=== PATIENT | male | born 1940 | race Two or more races ===

== ENCOUNTER → 2017-08-10 | Outpatient (CLI) | payer MEDICARE | END | disposition home or self-care (01) | LOC: LABPAT 10:57 | PROVIDERS: ATTEND Orthopaedic Surgery | DX: Z01.812 Encounter for preprocedural laboratory examination (principal) | CPT/HCPCS: 87070 ==

== ENCOUNTER → 2017-08-12 | Outpatient (CLI) | payer MEDICARE ==
--- NOTE | 2017-08-12 16:52 | XR ---
EXAMINATION TYPE: XR chest 2V DATE OF EXAM: 08/12/2017 COMPARISON: NONE HISTORY: Abnormal stress test. Preop hip surgery. TECHNIQUE: Frontal and lateral views of the chest are obtained. FINDINGS: Heart and mediastinum are normal. Lungs are clear of consolidation. There are small linear density at the left lung base. There is no heart failure. There is no pleural effusion. Bony thorax is intact. IMPRESSION: Minimal scarring or subsegmental atelectasis at the left lung base. Normal heart.
[2017-08-12 16:54] LABS: HCT 37.4 % (39.0-53.0); HGB 12.5 gm/dL (13.0-17.5); MCHC 33.5 g/dL (31.0-37.0); MCV 92.5 fL (80.0-100.0); Mean Platelet Volume 6.7; Platelet Count 230 k/uL (150-450); RBC 4.04 m/uL (4.30-5.90); RDW 13.4 % (11.5-15.5); WBC 7.5 k/uL (3.8-10.6)
== END | disposition home or self-care (01) ==
LOC: LABPAT 16:02
PROVIDERS: ATTEND Internal Medicine Cardiovascular Disease
DX: Z01.810 Encounter for preprocedural cardiovascular examination (principal); Z01.812 Encounter for preprocedural laboratory examination; R93.1 Abnormal findings on diagnostic imaging of heart and coronary circulation
CPT/HCPCS: 36415; 71046; 80051; 82565; 84520; 85027

== ENCOUNTER 2017-08-18 06:24 | Day surgery (SDC) | payer MEDICARE ==
[2017-08-16 10:51] VITALS: BMI 28.7
[~2017-08-18 06:24] MED LIST: ALPRAZolam 0.25 MG TAB PO PRN; ALPRAZolam 0.5 MG TAB PO PRN; ASPIRIN 325 MG TAB PO STA; ATORVASTATIN 80 MG TAB PO STA; NITROGLYCERIN SL TABS 0.4 MG TAB SUBLINGUAL PRN; SODIUM CHLORIDE 0.9% 1,000 ML in EMPTY BAG 1 BAG IV ONE
[2017-08-18] MEDS ORDERED: LIDOCAINE 1% INJ 10MG/ML (20 ML MDV) ONE (07:22)
[2017-08-18] MEDS ORDERED: LOSARTAN 25 MG TAB PO STA (07:22)
[2017-08-18 07:23] LABS: Glucose,Whole Blood 142 mg/dL (75-99)
[2017-08-18] MEDS ORDERED: MIDAZOLAM 2 MG/2 ML VIAL ONE (07:36)
[2017-08-18] MEDS ORDERED: fentaNYL (PF) 50 MCG/ML 2 ML AMP ONE ×2 (07:36→12:03)
[2017-08-18] MEDS: MIDAZOLAM 2 MG/2 ML VIAL IV ONE ×2 (07:45→08:25)
[2017-08-18] MEDS ORDERED: LIDOCAINE 1% INJ 10MG/ML (20 ML MDV) SQ ONE (07:47)
[2017-08-18] MEDS: fentaNYL (PF) 50 MCG/ML 2 ML AMP IV ONE ×2 (08:01→08:39)
--- NOTE | 2017-08-18 08:26 | CC ---
CARDIAC CATHETERIZATION REPORT INDICATION: This is a 77-year-old gentleman with multiple coronary risk factors who was to undergo right hip replacement surgery and was referred to us for an abnormal stress test. A stress test was done for preop cardiac evaluation. The patient does not have any cardiac symptoms. He understood risks, benefits and alternatives. PROCEDURE NOTE: After obtaining informed consent, left heart catheterization and coronary angiogram are performed via the right femoral artery using standard Hayley catheters. The patient tolerated the procedure well without any obvious immediate complications. Patient received moderate conscious sedation and total sedation time was 16 minutes. FINDINGS: 1. HEMODYNAMICS: Left ventricular end-diastolic pressure is 8 to 12 mm. There is no significant gradient across aortic valve. 2. LEFT VENTRICULOGRAM: Left ventriculogram is not performed. 3. ANGIOGRAPHIC DATA: 4. Left main coronary artery: Left main coronary artery appears calcified but is free of significant stenosis. Divides into left anterior descending coronary artery and circumflex coronary artery. LAD shows both the left main and LAD appears calcified but the LAD itself is free of significant stenosis. There is diffuse disease noted. It gives off a diagonal branch. The diagonal branch has a 70% stenosis. Circumflex coronary artery gives off a large caliber OM branch that shows an 80% to 90% stenosis. Right coronary artery is a large dominant vessel that appears calcified. It is diffusely diseased but there are no focal hemodynamically significant lesions. CONCLUSIONS: 1. An 80% to 90% stenosis involving the OM branch. 2. A 70% stenosis involving diagonal branch. PLAN: I talked to patient at length about the catheterization findings and his treatment options. I told him that one of his options is to go through hip surgery and treat the CAD with medical therapy. The other option is to do stenting of the OM branch and then let him go through surgery maybe [address]. Understanding all the issues, patient wishes to have the stenting done at this time and he is okay with postponing the surgery as he thinks the hip is not troubling him that much. MMODL / IJN: [id number] /
--- NOTE | 2017-08-18 08:32 | LTR ---
August 18, [address] Mclaughlin: I performed cardiac catheterization on [facility], a detailed catheterization note is enclosed for your records. The cardiac catheterization revealed an 80% to 90% stenosis involving the OM branch and he will undergo angioplasty with stent placement of the same. Thank you for allowing us to participate in the care of this pleasant gentleman. Sincerely, MD UZMA Ramirez / LOLA: [id number] /
[2017-08-18] MEDS ORDERED: IOPAMIDOL-370 125ML BTL INJ ONE ×2 (08:43→12:54)
[2017-08-18 11:17] LABS: Glucose,Whole Blood 134 mg/dL (75-99)
[2017-08-18] MEDS: amLODIPine 10 MG TAB PO SCH (11:30)
[2017-08-18] MEDS ORDERED: hydrALAZINE HCL 20 MG/ML 1 ML VIAL IVP STA (11:38)
[2017-08-18] MEDS ORDERED: BIVALIRUDIN 250 MG in SODIUM CHLORIDE 0.9% 50 ML IV ONE ×4 (12:16)
[2017-08-18] MEDS ORDERED: fentaNYL (PF) 50 MCG/ML 2 ML AMP IVP ONE (12:16)
[2017-08-18] MEDS ORDERED: BIVALIRUDIN BOLUS 250 MG/50 ML IV ONE ×2 (12:17→12:22)
[2017-08-18] MEDS ORDERED: PRASUGREL 10 MG TAB ONE (12:23)
[2017-08-18] MEDS ORDERED: PRASUGREL 10 MG TAB PO ONE (12:27)
[2017-08-18] MEDS ORDERED: NITROGLYCERIN 1000MCG/10ML SYRINGE INTRACORON ONE (12:41)
[2017-08-18] MEDS ORDERED: IOPAMIDOL-370 50ML BTL INJ ONE (13:04)
[2017-08-18] MEDS ORDERED: NITROGLYCERIN SL TABS 0.4 MG TAB SUBLINGUAL PRN (13:20)
[2017-08-18] MEDS ORDERED: MAG HYDROX/AL HYDROX/SIMETH 30 ML CUP PO PRN (13:20)
[2017-08-18] MEDS ORDERED: ATROPINE SULFATE 0.1 MG/ML 10ML SYRINGE IV PRN (13:20)
[2017-08-18] MEDS ORDERED: RX INFO: IV CONTRAST WAS GIVEN 1 EACH MISC MISCELLANE PRN (13:20)
[2017-08-18] MEDS ORDERED: ZOLPIDEM 5 MG TAB PO PRN (13:20)
[2017-08-18] MEDS ORDERED: SODIUM CHLORIDE 0.9% 1,000 ML IV SCH (13:30)
[2017-08-18 14:01] VITALS: RESP 16
--- NOTE | 2017-08-18 15:05 | PTCA ---
PERCUTANEOUSTRANS CORORONARY ANGIOGRAPHY Mr. Holman is a 77-year-old male with known history of hypertension, hyperlipidemia, diabetes mellitus, who has underwent a myocardial perfusion imaging in the setting of a preoperative evaluation and was found to have reversible inferolateral wall defect. He underwent cardiac catheterization by Dr. Barajas and was found to have calcified coronary artery with significant stenosis involving the first obtuse marginal branch that is moderate to large in caliber. Discussion was made with the patient by Dr. Barajas regarding both options of proceeding with surgical intervention or percutaneous revascularization and postponing his surgical intervention. He was in favor of proceeding with percutaneous revascularization. The procedures, risks and complications were discussed with the patient who is in full understanding and agreement. PROCEDURE: Patient was brought to the labor service representative in a fasting semisedated state after receiving fentanyl and Benadryl and achieving moderate conscious sedated state. Using wire exchange technique, a 6-Finnish sheath in the right femoral artery was exchanged to a new 6-Finnish sheath. Following that, a 6-Finnish FR4 guiding catheter in the system. After cannulating the left main, a 0.014 advanced medium weight J-wire was advanced across the system and positioned in the first obtuse marginal branch. Subsequently, a 0.14 whisper J-wire was advanced and positioned in the distal second obtuse marginal branch. Subsequently a 2.5 x 12 mm Trek balloon was advanced and two inflations at a maximum of 8 atmospheres was done. Following that, the balloon was removed and attempt to advance a 2.5 x 18 mm Xience Alpine stent were unsuccessful. At that point, the stent was removed and the BMW J wire was removed and a GuideLiner was advanced and with the help of the GuideLiner, the stent was advanced, deployed and dilated at 14 atmospheres. Following that, the balloon was removed and another 2.25 x 12 mm Xience Alpine stent was deployed with the preschool assistant of the GuideLiner and positioned distal to the 1st stent and dilated to 16 atmospheres. Subsequently, inflation of the guidewire, the balloon and the guidewire were removed were withdrawn back in the guiding catheter. Images were obtained and repeated. Those images reveal stable successful stenting. At that point, the guiding catheter, the balloon and the guidewire were removed. The sheath was removed. Hemostasis was obtained with deployment of an Angio-Seal. There was no immediate complication. The patient was returned to his room in stable condition. Of note, the patient received Angiomax per protocol as was oral loading dose off Effient. He had chest discomfort with the inflation that resolved at the end of procedure. RESULTS: Successful stenting of the second obtuse marginal branch with reduction of stenosis from 80% to 0% in a calcified tortuous segment. RECOMMENDATION: Patient will be continued on aspirin, Effient, beta blockers and statin. The importance of dual antiplatelet treatment were discussed with the patient and his family who are in full understanding and agreement. DURATION OF PROCEDURE: 52 minutes. UZMA / DEBBIEN: [id number] /
--- NOTE | 2017-08-18 15:14 | LTR ---
DATE OF SERVICE: 08/18/[address] Mclaughlin: I had the pleasure of performing coronary angioplasty and stenting on Mr. Holman at [facility] on August 18 and a full copy of procedure note will be forwarded to you. In brief, he underwent successful stenting of his second obtuse marginal branch. I am hopeful that this procedure will stabilize his status. Thank you again for allowing me to participate in his care. Please feel free to call for any questions. Sincerely yours, MMFAVIAN / DEBBIEN: [id number] /
[2017-08-18 16:38] LABS: Glucose,Whole Blood 268 mg/dL (75-99)
[2017-08-18] MEDS: INSULIN ASPART 100 UNIT/ML 1 ML 10 ML VIAL SQ SCH ×2 (17:22→21:14)
[2017-08-18] MEDS: METOPROLOL TARTRATE 25 MG TAB PO SCH (20:32)
[2017-08-18] MEDS: CALCIUM CARBONATE 500 MG CHEWABLE PO SCH (20:32)
[2017-08-18] MEDS ORDERED: ATORVASTATIN 80 MG TAB PO SCH (21:00)
[2017-08-18 21:05] LABS: Glucose,Whole Blood 189 mg/dL (75-99)
[2017-08-19 06:07] LABS: Glucose,Whole Blood 156 mg/dL (75-99)
[2017-08-19] MEDS: INSULIN ASPART 100 UNIT/ML 1 ML 10 ML VIAL SQ SCH (06:27)
[2017-08-19] MEDS ORDERED: LEVOTHYROXINE 75 MCG TAB PO SCH (06:30)
[2017-08-19 06:31] LABS: Calcium 8.4 mg/dL (8.4-10.2)
--- NOTE | 2017-08-19 07:36 | PN ---
PROGRESS NOTE Mr. Holman is a 77-year-old male who has been followed by Dr. Barajas. He was scheduled to undergo a total hip arthroplasty, underwent a myocardial perfusion imaging that revealed evidence of inferolateral ischemia. His cardiac catheterization showed severe stenosis involving the second obtuse marginal branch and heavily calcified vessels. The patient underwent stenting of the vessel after discussion with him regarding the timing of surgical intervention. He received 2 stents in the second obtuse marginal branch. He is doing well this morning ambulating without difficulty. Denying any chest pain. No dizziness. No palpitation. No nausea. He continued to be on aspirin once a day, Effient 10 mg daily, Lipitor 80 mg daily, losartan 25 mg daily, metoprolol tartrate 25 mg twice a day, tamsulosin, zolpidem and insulin. PHYSICAL EXAMINATION: Blood pressure 123/60 with the heart rate in 70s. LUNGS: Clear. HEART: Regular rate and rhythm. S1, S2. No S3. No rub. ABDOMEN: Soft, nontender. Right groin: No hematoma. EKG revealed no acute changes. LAB DATA: Lab data revealed BUN and creatinine 20 and 0.96. IMPRESSION: 1. Status post stenting of the left circumflex. 2. Hypertension. 3. Hyperlipidemia. 4. Diabetes mellitus. RECOMMENDATION: Patient will be discharged home today and followed as an outpatient. MMODL / IJN: [id number] /
[2017-08-19 08:06] VITALS: BP 113/68; PULSE 75; TEMP 97.5
[2017-08-19] MEDS: amLODIPine 10 MG TAB PO SCH (08:09)
[2017-08-19] MEDS: CALCIUM CARBONATE 500 MG CHEWABLE PO SCH (08:10)
[2017-08-19] MEDS: METOPROLOL TARTRATE 25 MG TAB PO SCH (08:11)
[2017-08-19] MEDS ORDERED: TAMSULOSIN 0.4 MG CAP.ER.24H PO SCH (09:00)
[2017-08-19] MEDS ORDERED: ASPIRIN 81 MG PO SCH (09:00)
[2017-08-19] MEDS ORDERED: LOSARTAN 25 MG TAB PO SCH (09:00)
[2017-08-19] MEDS ORDERED: PRASUGREL 10 MG TAB PO SCH (12:00)
== END 2017-08-19 11:15 | disposition home or self-care (01) ==
LOC: CATHCVL 06:24 → 6ICU 08:48 → 6SEL 13:07 → CATHCVL 08-19 11:15
PROVIDERS: ATTEND Internal Medicine Cardiovascular Disease
DX: I25.10 Atherosclerotic heart disease of native coronary artery without angina pectoris (principal); I25.84 Coronary atherosclerosis due to calcified coronary lesion; I77.1 Stricture of artery; I10 Essential (primary) hypertension; E78.2 Mixed hyperlipidemia; E11.9 Type 2 diabetes mellitus without complications; Z79.84 Long term (current) use of oral hypoglycemic drugs; Z79.82 Long term (current) use of aspirin; Z79.890 Hormone replacement therapy; Z79.899 Other long term (current) drug therapy
CPT/HCPCS: 94760; 93458; 85347; 80048; C9600; C1769 ×4; C1760; C1887 ×2; C1725; C1894; C1874; J2250; J0360; J2001; J3010; J0583; Q9967 ×2

== ENCOUNTER → 2018-12-12 | Outpatient (CLI) | payer MEDICARE ==
[2018-12-12 14:19] LABS: Appearance,Urine Clear (Clear); Bilirubin,Urine Negative (Negative); Blood,Urine Negative (Negative); Color,Urine Yellow; Glucose,Urine (UA) Negative (Negative); Ketones,Urine Negative (Negative); Leukocyte Esterase,Urine Negative (Negative); Nitrite,Urine Negative (Negative); Protein,Urine Trace (Negative); Specific Gravity,Urine 1.023 (1.001-1.035)
[2018-12-12 14:20] LABS: HGB 12.1 gm/dL (13.0-17.5); MCH 30.8 pg (25.0-35.0); MCHC 32.8 g/dL (31.0-37.0); Mean Platelet Volume 6.2; Platelet Count 248 k/uL (150-450); RBC 3.93 m/uL (4.30-5.90); RDW 12.8 % (11.5-15.5)
[2018-12-12 14:24] LABS: Calcium 9.2 mg/dL (8.4-10.2); Prothrombin Time 10.8 sec (9.0-12.0); Total Bilirubin 0.6 mg/dL (0.2-1.3); Total Protein 7.1 g/dL (6.3-8.2)
== END | disposition home or self-care (01) ==
LOC: LABPAT 12:37
PROVIDERS: ATTEND Orthopaedic Surgery
DX: Z01.810 Encounter for preprocedural cardiovascular examination (principal); Z01.812 Encounter for preprocedural laboratory examination
CPT/HCPCS: 36415; 80053; 81003; 85027; 85610; 85730; 87070; 93005

== ENCOUNTER 2018-12-19 07:46 | Inpatient (IN) | payer MEDICARE ==
[2018-12-09 12:32] VITALS: BMI 28.7
[~2018-12-19 07:46] MED LIST changes: +ACETAMINOPHEN TAB 500 MG TAB PO ONE; -ALPRAZolam 0.25 MG TAB PO PRN; -ALPRAZolam 0.5 MG TAB PO PRN; -ASPIRIN 325 MG TAB PO STA; -ATORVASTATIN 80 MG TAB PO STA; +DEXAMETHASONE SOD PHOSPHATE 10 MG/ML 1 ML VIAL IV ONE; +GABAPENTIN 300 MG CAP PO ONE; +LIDOCAINE 1% 20 ML VIAL (10MG/ML) FOR IV START INTRADERMA PRN; +MELOXICAM 7.5 MG TAB PO ONE; +MORPHINE SULFATE 2 MG/ML SYRINGE IV PRN; -NITROGLYCERIN SL TABS 0.4 MG TAB SUBLINGUAL PRN; +ONDANSETRON 4 MG/2 ML VIAL IVP PRN; +ROPIVACAINE 246.25 MG, EPINEPHrine 0.5 MG, KETOROLAC 30 MG, cloNIDine HCL/PF 80 MCG, WA... MISCELLANE ONE; -SODIUM CHLORIDE 0.9% 1,000 ML in EMPTY BAG 1 BAG IV ONE; +TRANEXAMIC ACID 1,000 MG in SODIUM CHLORIDE 0.9% 100 ML IVPB ONE
[2018-12-19 12:01] LABS: Glucose,Whole Blood 147 mg/dL (75-99)
[2018-12-19] MEDS: LACTATED RINGERS 1,000 ML IV SCH (12:04)
[2018-12-19] MEDS ORDERED: ONDANSETRON 4 MG/2 ML VIAL IVP PRN (12:22)
[2018-12-19] MEDS ORDERED: MAGNESIUM HYDROXIDE 2,400 MG/10 ML CUP PO PRN (12:22)
[2018-12-19] MEDS ORDERED: HYDROmorphone 0.5 MG/0.5 ML SYRINGE IVP PRN ×3 (12:22)
[2018-12-19] MEDS ORDERED: NALOXONE 0.4 MG/ML 1 ML VIAL IV PRN (12:22)
[2018-12-19] MEDS ORDERED: HYDROcodone/APAP 5-325MG 1 EACH TAB PO PRN (12:22)
[2018-12-19] MEDS ORDERED: DIAZEPAM 5 MG TAB PO PRN (12:22)
[2018-12-19] MEDS ORDERED: SODIUM CHLORIDE 0.9% IRRIG 1,000 ML BTL IRRIGATION ONE (13:13)
[2018-12-19] MEDS ORDERED: TRANEXAMIC ACID 1,000 MG/10 ML VIAL ONE (13:13)
[2018-12-19] MEDS ORDERED: HEPARIN SODIUM,PORCINE 10,000 UNIT/ML 1 ML VIAL ONE (13:13)
[2018-12-19] MEDS ORDERED: SODIUM CHLORIDE 0.9% 100 ML BAG ONE (13:13)
[2018-12-19] MEDS ORDERED: MIDAZOLAM 2 MG/2 ML VIAL ONE (13:13)
[2018-12-19] MEDS ORDERED: ceFAZolin 3,000 MG in SODIUM CHLORIDE 0.9% IRRIGATIO 3,000 ML IRRIGATION ONE (14:00)
--- NOTE | 2018-12-19 14:50 | P.OP ---
Date of Procedure: 12/19/18 Preoperative Diagnosis: Severe osteoarthritis right hip Postoperative Diagnosis: Severe osteoarthritis right hip Procedure(s) Performed: Right total hip arthroplasty with a direct anterior approach Implants: Castillo and nephew Polarstem size 5 standard Castillo [employer] Nephew R3, 3 hole acetabular shell, 54 mm Castillo [employer] Nephew reflection 6.5 mm cancellus screw, 25 mm 2 Castillo [employer] Nephew R3, XLPE 20 acetabular liner Castillo [employer] Nephew Oxinium femoral head 36 m, +4 All components were press-fit. The articulation is Oxinium on polyethylene. Anesthesia: spinal Surgeon: Marcial Jean Baptiste Casting Room Operator #1: Melissa Kline Estimated Blood Loss (ml): 150 (66 mL returned with Cell Saver) Pathology: other (Femoral head) Condition: stable Disposition: PACU Indications for Procedure: After failure of conservative treatment we discussed the surgical and nonsurgical treatment options at length. Patient wishes to proceed with a total hip arthroplasty with a direct anterior approach. Complications specific to this procedure were discussed at length, including but not limited to infection, leg length discrepancy, dislocation, and nerve injury. Patient is aware of all these complications and informed consent was obtained Operative Findings: The operative findings are consistent with severe osteoarthritis of the right hip Description of Procedure: Patient was seen and evaluated in the preoperative area, consent was reviewed, and the surgical site was marked with a skin marker. Patient was then brought to the operating room and given prophylactic antibiotics intravenously. 1 g of Tranexamic acid was also given. A spinal anesthetic was administered by the anesthesia department. The patient was then placed on the [place] table with the bony prominences well-padded. The hip area was then prepped and draped in usual sterile fashion. A universal timeout was then performed, which confirmed the patient's name, surgical site, ALLERGIES, and procedure being performed. Next the incision site was located at 1 cm distal and 1 cm lateral to the anterior superior iliac spine. The skin and subcutaneous tissues were sharply incised. Incision was carefully dissected down to the fascia overlying the tensor fascia martha muscle. This fascia was then incised in line with the incision. Next, using blunt finger dissection, the tensor fascia martha muscle was dissected off its investing fascia. The muscle was then carefully retracted laterally with a cobra retractor over the lateral neck of the femur. Next, the circumflex vessels were identified and cauterized using the AquaMantis device. The anterior hip capsule was then exposed. The capsule was then opened and an inverted T fashion. Cobra retractors were then placed intracapsularly. The proximal femur was then visualized. The femoral neck was then osteotomized appropriate level above the lesser trochanter. Small amount of traction was placed with the [place] table. A small wedge of bone was then removed from the remaining femoral head. Next, using a corkscrew femoral head was easily removed from the acetabulum. On gross visual inspection, the femoral head had complete loss of articular cartilage in mu ltiple periarticular osteophytes. Attention was then turned to the acetabulum. the acetabulum was exposed and any remaining labrum was excised. Sequential reaming of the acetabulum was performed using fluoroscopic guidance. When the appropriate size was reached, a trial was then placed. The position and fit of the trial was checked with fluoroscopy. The trial was then removed. Then, using fluoroscopic guidance, the final implant was impacted at 20 of anteversion and 40 of abduction, and fully seated in the acetabulum. 2 screws were then placed in the acetabulum. Again fluoroscopy was used to check position of the screws. Next, the liner was then impacted, with a 20 elevated liner located in the anterior superior quadrant. Component locking was confirmed. Attention was then directed to the femur. With the aid of the [place] table, the femur was externally rotated to approximately 130, extended, and abducted under the opposite leg. A side hook was then placed under the proximal femur, and the side hook elevator was used to elevate the proximal femur. Retractors were then placed. A capsular release was performed, as well as a release of the conjoined tendon, which afforded excellent visualization of the proximal femur. Next, a box osteotome was used to lateralize the proximal femur. A coat ironer hand was then used to locate the femoral canal. Sequential broaching was then performed with appropriate size which afforded excellent fixation in the proximal femur. A trial was then placed with appropriate head and neck, and the hip was gently reduced with the aid of the [place] table. Fluoroscopy was then used to check position of the components, as well as to ensure equal leg lengths. The hip was then gently dislocated and the trials were then removed. Final implants were then impacted and the hip was again reduced. Final fluoroscopic x-rays confirmed that the components were in anatomic position, as well as equal leg lengths. The hip was also taken through range of motion, and found to be stable. The hip was then copiously irrigated with antibiotic solution with pulsatile lavage. The hip was then irrigated with Irrisept solution. The soft tissues were then injected with a ropivacaine solution, which consisted of 246.25 mg of ropivacaine, 0.5 mg of epinephrine, 30 mg of Toradol, 80 g of clonidine, and 48.45 mL of sterile water, for a total of 100 mL of fluid injected. A second dose of 1 g of Tranexamic acid was also given. the fascia was then closed with 2-0 strata fix suture. The subcutaneous tissue was closed with 3-0 Vicryl. The subcuticular tissue was closed with 3-0 strata fix suture. The skin was then closed with Dermabond glue and a sterile silver dressing. The patient was then transferred to the recovery room in stable co ndition. The executive sales assistant CASSANDRA Mendoza was required due to the complexity of surgery, and the need for skilled surgical services tech for positioning, draping, exposure, retraction, and closure of the wound.
[2018-12-19] MEDS ORDERED: LACTATED RINGERS 1,000 ML IV ONE ×2 (14:54→15:08)
--- NOTE | 2018-12-19 15:19 | XR ---
EXAMINATION TYPE: XR Hip Limited RT, FL guidance operating room DATE OF EXAM: 12/19/2018 CLINICAL HISTORY: Fluoroscopic documentation during left hip arthroplasty TECHNIQUE: Fluoroscopy. COMPARISON: None. FINDINGS: Fluoroscopic guidance was provided during procedure performed by Dr. Jean Baptiste. A total of 42 seconds of fluoroscopic time was utilized during the procedure and 2 spot images was acquired. IMPRESSION: As Above.
[2018-12-19 15:23] LABS: Glucose,Whole Blood 152 mg/dL (75-99)
--- NOTE | 2018-12-19 15:32 | XR ---
EXAMINATION TYPE: XR Hip Limited RT DATE OF EXAM: 12/19/2018 CLINICAL HISTORY: Right hip pain and osteoarthritis. TECHNIQUE: Single AP portable view of right hip is obtained immediately postoperatively. COMPARISON: None. FINDINGS: Metallic hardware from right hip arthroplasty is seen and appears satisfactory in alignment and position. There is evidence of recent surgery with subcutaneous gas noted laterally. IMPRESSION: Metallic hardware from right hip arthroplasty is satisfactory in position.
[2018-12-19] MEDS: SODIUM CHLORIDE 0.9% 1,000 ML IV SCH (17:13)
[2018-12-19] MEDS: METOPROLOL TARTRATE 25 MG TAB PO SCH (20:36)
[2018-12-19] MEDS: ASPIRIN 325 MG TAB PO SCH (20:36)
[2018-12-19] MEDS: INSULIN ASPART (NovoLOG) 100 UNIT/ML VIAL SQ SCH (20:38)
[2018-12-19 20:44] LABS: Glucose,Whole Blood 321 mg/dL (75-99)
[2018-12-19] MEDS ORDERED: SENNOSIDES-DOCUSATE SODIUM 1 EACH TAB PO SCH (21:00)
[2018-12-19] MEDS ORDERED: ATORVASTATIN 80 MG TAB PO SCH (21:00)
[2018-12-20] MEDS: SODIUM CHLORIDE 0.9% 1,000 ML IV SCH ×2 (03:21→06:42)
[2018-12-20] MEDS: LACTATED RINGERS 1,000 ML IV SCH (05:13)
[2018-12-20] MEDS: HYDROcodone/APAP 5-325MG 1 EACH TAB PO PRN ×2 (05:39→11:34)
[2018-12-20] MEDS ORDERED: LEVOTHYROXINE 75 MCG TAB PO SCH (06:30)
[2018-12-20 06:52] LABS: Glucose,Whole Blood 146 mg/dL (75-99)
[2018-12-20 07:09] LABS: Basophils % (A) 0 %; Eosinophils % (A) 0 %; HGB 10.7 gm/dL (13.0-17.5); Lymphocytes # (A) 0.9 k/uL (1.0-4.8); Lymphocytes % (A) 9 %; MCH 32.4 pg (25.0-35.0); MCHC 34.6 g/dL (31.0-37.0); MCV 93.6 fL (80.0-100.0); Mean Platelet Volume 6.2; Monocytes # (A) 0.7 k/uL (0-1.0); Monocytes % (A) 6 %; Neutrophils # (A) 8.8 k/uL (1.3-7.7); Neutrophils % (A) 84 %; Platelet Count 201 k/uL (150-450); RBC 3.31 m/uL (4.30-5.90); WBC 10.6 k/uL (3.8-10.6)
[2018-12-20] MEDS: ASPIRIN 325 MG TAB PO SCH (07:33)
[2018-12-20] MEDS: METOPROLOL TARTRATE 25 MG TAB PO SCH (07:33)
[2018-12-20] MEDS: INSULIN ASPART (NovoLOG) 100 UNIT/ML VIAL SQ SCH ×2 (07:33→12:12)
[2018-12-20] MEDS: metFORMIN 500 MG TAB PO SCH ×2 (07:33→11:34)
[2018-12-20] MEDS ORDERED: NITROGLYCERIN SL TABS 0.4 MG TAB SUBLINGUAL PRN (07:46)
[2018-12-20 07:55] VITALS: BP 135/73; PULSE 60; RESP 12; TEMP 97.5
[2018-12-20] MEDS ORDERED: TAMSULOSIN 0.4 MG CAP.ER.24H PO SCH (09:00)
[2018-12-20] MEDS ORDERED: LOSARTAN 25 MG TAB PO SCH (09:00)
[2018-12-20] MEDS ORDERED: MELOXICAM 7.5 MG TAB PO SCH (09:00)
--- NOTE | 2018-12-20 09:41 | P.DS ---
Providers Date of admission: 12/19/18 11:18 Expected date of discharge: 12/20/18 Attending physician: Marcial Jean Baptiste Consults: 12/19/18 12:22 Consult Physician Routine Consulting Provider: Serafin Arreola Consult Reason/Comments: medical management Do you want consulting provider notified?: Yes Primary care physician: Romaine Castillo MD - Discharge Diagnosis(es) (1) Osteoarthritis of right hip Current Visit: Yes Status: Acute (2) S/P total hip arthroplasty Current Visit: Yes Status: Acute Hospital Course: This is a 78-year-old male with known history of degenerative arthritis of the right hip. The patient presents for evaluation. After discussion and consideration patient elects to proceed with total hip arthroplasty. The patient is seen preoperatively by Dr. Jean Baptiste and medically cleared for surgery by their primary care physician. Patient is admitted to [facility] on 12/19/2018 for total hip arthroplasty. The procedures performed without complication or sequelae. The patient is doing well postoperatively. Labs and vital signs are stable on day of discharge. On day of discharge patient's hip incision is healing well. There is minimal erythema. There is no drainage noted at this time. There is minimal soft tissue swelling to the hip and thigh. Patient has full foot and ankle motion without difficulty or pain. Calf is soft and nontender to palpation. Neurovas cular status to the right lower extremity is intact. Patient is discharged home in good condition. Opioid start talking form is reviewed and signed at patient bedside. Please see med rec for accurate list of home medications. Plan - Discharge Summary Discharge Rx Participant: No New Discharge Prescriptions: New Aspirin 325 mg PO BID #60 tab HYDROcodone/APAP 5-325MG [[place] 5-325] 1 - 2 tab PO Q6HR PRN #56 tab PRN Reason: Pain Sennosides [Senokot] 1 tab PO BID #60 tablet No Action metFORMIN HCL [Glucophage] 500 mg PO TID Aspirin [Adult Low Dose Aspirin EC] 81 mg PO DAILY Tamsulosin [Flomax] 0.4 mg PO DAILY Calcium Carbonate [Calcium] 300 mg PO BID Losartan [Cozaar] 25 mg PO QAM Levothyroxine Sodium [Synthroid] 75 mcg PO QAM [place] 3 Cap 350 mg PO DAILY Atorvastatin [Lipitor] 80 mg PO HS #90 tab Metoprolol Tartrate [Lopressor] 25 mg PO BID #180 tab Nitroglycerin Sl Tabs [Nitrostat] 0.4 mg SUBLINGUAL Q5M PRN #25 tab PRN Reason: Chest Pain Discharge Medication List Aspirin [Adult Low Dose Aspirin EC] 81 mg PO DAILY 12/06/14 [History] metFORMIN HCL [Glucophage] 500 mg PO TID 12/06/14 [History] Calcium Carbonate [Calcium] 300 mg PO BID 08/05/17 [History] Levothyroxine Sodium [Synthroid] 75 mcg PO QAM 08/05/17 [History] Losartan [Cozaar] 25 mg PO QAM 08/05/17 [History] [place] 3 Cap 350 mg PO DAILY 08/05/17 [History] Tamsulosin [Flomax] 0.4 mg PO DAILY 08/05/17 [History] Atorvastatin [Lipitor] 80 mg PO HS #90 tab 08/19/17 [Rx] Metoprolol Tartrate [Lopressor] 25 mg PO BID #180 tab 08/19/17 [Rx] Nitroglycerin Sl Tabs [Nitrostat] 0.4 mg SUBLINGUAL Q5M PRN #25 tab 08/19/17 [Rx] Aspirin 325 mg PO BID #60 tab 12/20/18 [Rx] HYDROcodone/APAP 5-325MG [[place] 5-325] 1 - 2 tab PO Q6HR PRN #56 tab 12/20/18 [Rx] Sennosides [Senokot] 1 tab PO BID #60 tablet 12/20/18 [Rx] Follow up Appointment(s)/Referral(s): Romaine Castillo MD [Primary Care Provider] - 1 Week Marcial Jean Baptiste DO [Doctor of Osteopathic Medicine] - 01/04/19 9:05 am Activity/Diet/Wound Care/Special Instructions: Weightbearing as tolerated with walker. Leave dressing intact. Dressing may be removed by home care nurse or by patient in 10 days. May shower with dressing on. Recommend use of compression stockings daily for at least 2 weeks during the day to help prevent swelling and blood clots. May remove at night before sleeping. Please follow-up with [facility] in 2 weeks and call with any questions or concerns, . Discharge Disposition: HOME WITH HOME HEALTH SERVICES
[2018-12-20 12:11] LABS: Glucose,Whole Blood 151 mg/dL (75-99)
--- NOTE | 2018-12-21 09:30 | P.CONS ---
History of Present Illness - Reason for Consult Consult date: 12/20/18 Recommendations regarding diabetic and antihypertensive medications. - History of Present Illness Patient is a pleasant 78-year-old gentleman with the known history of multiple medical problems came in for elective right hip arthroplasty successfully underwent surgery patient is clinically doing well patient actually is being discharged. Patient does have hypertension as well as diabetes mellitus uses metformin for diabetes patient pain is well-controlled surgical site area appears to be clean. Patient is clinically doing well no further recommendations from medicine can be discharged from medical perspective disch arge medication reconciliation was reviewed and appropriate changes were made. Admission medication reconciliation was done as well Review of Systems REVIEW OF SYSTEMS: CONSTITUTIONAL: No fever, no malaise, no fatigue. HEENT: No recent visual problems or hearing problems. Denied any sore throat. CARDIOVASCULAR: No chest pain, orthopnea, PND, no palpitations, no syncope. PULMONARY: No shortness of breath, no cough, no hemoptysis. GASTROINTESTINAL: No diarrhea, no nausea, no vomiting, no abdominal pain. NEUROLOGICAL: No headaches, no weakness, no numbness. HEMATOLOGICAL: Denies any bleeding or petechiae. GENITOURINARY: Denies any burning micturition, frequency, or urgency. MUSCULOSKELETAL/RHEUMATOLOGICAL: Denies any joint pain, swelling, or any muscle pain. ENDOCRINE: Denies any polyuria or polydipsia. The rest of the 14-point review of systems is negative. Past Medical History Past Medical History: Diabetes Mellitus, Eye Disorder, Hyperlipidemia, Hypertension, Prostate Disorder, Thyroid Disorder Additional Past Medical History / Comment(s): Bilateral cataracts, enlarged prostate. History of Any Multi-Drug Resistant Organisms: None Reported Past Surgical History: Heart Catheterization With Stent Additional Past Surgical History / Comment(s): 3 colonoscopies, cardiac stents X2. Past Anesthesia/Blood Transfusion Reactions: No Reported Reaction, Motion Sickness Date of Last Stent Placement:: 11/08/2017 Past Psychological History: No Psychological Hx Reported Smoking Status: Never smoker Past Alcohol Use History: None Reported Past Drug Use History: None Reported - Past Family History Father Family Medical History: Cancer Medications and Allergies Home Medications Medication Instructions Recorded Confirmed Type Aspirin [Adult Low Dose Aspirin EC] 81 mg PO DAILY 12/06/14 12/19/18 History metFORMIN HCL [Glucophage] 500 mg PO TID 12/06/14 12/09/18 History Calcium Carbonate [Calcium] 300 mg PO BID 08/05/17 12/09/18 History Levothyroxine Sodium [Synthroid] 75 mcg PO QAM 08/05/17 12/09/18 History Losartan [Cozaar] 25 mg PO QAM 08/05/17 12/09/18 History [place] 3 Cap 350 mg PO DAILY 08/05/17 12/09/18 History Tamsulosin [Flomax] 0.4 mg PO DAILY 08/05/17 12/09/18 History Atorvastatin [Lipitor] 80 mg PO HS #90 tab 08/19/17 12/09/18 Rx Metoprolol Tartrate [Lopressor] 25 mg PO BID #180 tab 08/19/17 12/19/18 Rx Nitroglycerin Sl Tabs [Nitrostat] 0.4 mg SUBLINGUAL Q5M PRN #25 tab 08/19/17 12/09/18 Rx Aspirin 325 mg PO BID #60 tab 12/20/18 Rx HYDROcodone/APAP 5-325MG [[place] 1 - 2 tab PO Q6HR PRN #56 tab 12/20/18 Rx 5-325] Sennosides [Senokot] 1 tab PO BID #60 tablet 12/20/18 Rx Allergies Allergy/AdvReac Type Severity Reaction Status Date / Time No Known Allergies Allergy Verified 12/19/18 12:01 Physical Exam PHYSICAL EXAMINATION: GENERAL: The patient is alert and oriented x3, not in any acute distress. Well developed, well nourished. HEENT: Pupils are round and equally reacting to light. EOMI. No scleral icterus. No conjunctival pallor. Normocephalic, atraumatic. No pharyngeal erythema. No thyromegaly. CARDIOVASCULAR: S1 and S2 present. No murmurs, rubs, or gallops. PULMONARY: Chest is clear to auscultation, no wheezing or crackles. ABDOMEN: Soft, nontender, nondistended, normoactive bowel sounds. No palpable organomegaly. MUSCULOSKELETAL: No joint swelling or deformity. EXTREMITIES: No cyanosis, clubbing, or pedal edema. NEUROLOGICAL: Gross neurological examination did not reveal any focal deficits. SKIN: No rashes. Results CBC & Chem 7: 12/20/18 06:29 Labs: Abnormal Lab Results - Last 24 Hours (Table) 12/20/18 Range/Units 11:57 POC Glucose (mg/dL) 151 H (75-99) mg/dL Assessment and Plan Plan: -Right hip arthroplasty: Patient is being discharged on aspirin 325 twice a day has DVT prophylaxis and the pain is well controlled at this time. -Hypertension patient blood pressure is fairly stable with the losartan which can be continued -Benign prostatic hypertrophy -Type II diabetes mellitus as I do not have enough time to for titration of his diabetic medication recommend to continue metformin -Hypothyroidism -Hyperlipidemia -Coronary artery disease with stents in the past continue with metoprolol and patient is on antiplatelet therapy as mentioned above For above-mentioned chronic problems patient can be continued on his home medications. Patient can be discharged from medical perspective no further recommendations from.
== END 2018-12-20 13:32 | disposition home health service (06) | DRG 470 ==
LOC: 2ORMAIN 11:18 → 4SSUR 15:14
PROVIDERS: ADMIT Orthopaedic Surgery; ATTEND Orthopaedic Surgery
PROC: 0SR906A Replacement of Right Hip Joint with Oxidized Zirconium on Polyethylene Synthetic Substitute, Uncemented, Open Approach (ICD-10-PCS; principal; 2018-12-19 13:00)
DX: M16.11 Unilateral primary osteoarthritis, right hip (principal); E11.9 Type 2 diabetes mellitus without complications; E03.9 Hypothyroidism, unspecified; I25.10 Atherosclerotic heart disease of native coronary artery without angina pectoris; I10 Essential (primary) hypertension; E78.5 Hyperlipidemia, unspecified; N40.0 Benign prostatic hyperplasia without lower urinary tract symptoms; H26.9 Unspecified cataract; Z79.84 Long term (current) use of oral hypoglycemic drugs; Z79.82 Long term (current) use of aspirin; Z79.890 Hormone replacement therapy; Z79.899 Other long term (current) drug therapy; Z87.891 Personal history of nicotine dependence; Z95.5 Presence of coronary angioplasty implant and graft
CPT/HCPCS: 73501; 85025; 86850; 86891; 86900; 86901; 88300

== ENCOUNTER 2018-12-31 22:40 | Emergency (ER) | payer MEDICARE ==
[2018-12-31 22:52] VITALS: RESP 18; TEMP 98.4
[2018-12-31] MEDS ORDERED: SODIUM CHLORIDE 0.9% 500 ML 500 ML IV STA (23:04)
[2018-12-31 23:16] LABS: Basophils # (A) 0.3 k/uL (0-0.2); Basophils % (A) 3 %; Eosinophils # (A) 0.3 k/uL (0-0.7); Eosinophils % (A) 3 %; HCT 29.9 % (39.0-53.0); HGB 9.9 gm/dL (13.0-17.5); Lymphocytes # (A) 0.7 k/uL (1.0-4.8); Lymphocytes % (A) 7 %; MCHC 33.2 g/dL (31.0-37.0); MCV 93.2 fL (80.0-100.0); Mean Platelet Volume 6.5; Monocytes # (A) 0.5 k/uL (0-1.0); Monocytes % (A) 6 %; Neutrophils # (A) 7.4 k/uL (1.3-7.7); Neutrophils % (A) 80 %; RBC 3.21 m/uL (4.30-5.90); RDW 12.9 % (11.5-15.5); WBC 9.3 k/uL (3.8-10.6)
[2018-12-31 23:21] LABS: Platelet Count 423 k/uL (150-450)
[2018-12-31 23:25] LABS: Albumin 3.3 g/dL (3.5-5.0); Calcium 9.3 mg/dL (8.4-10.2); Total Bilirubin 0.5 mg/dL (0.2-1.3); Total Protein 6.3 g/dL (6.3-8.2)
[2018-12-31 23:30] LABS: Potassium 5.4 mmol/L (3.5-5.1)
[2018-12-31 23:37] LABS: Appearance,Urine Clear (Clear); Bilirubin,Urine Negative (Negative); Blood,Urine Negative (Negative); Color,Urine Yellow; Glucose,Urine (UA) Negative (Negative); Ketones,Urine Negative (Negative); Leukocyte Esterase,Urine Negative (Negative); Nitrite,Urine Negative (Negative); PH, Urine 5.5 (5.0-8.0); Protein,Urine Trace (Negative); Specific Gravity,Urine 1.023 (1.001-1.035)
--- NOTE | 2019-01-01 00:15 | CT ---
EXAMINATION TYPE: CT abdomen pelvis w con DATE OF EXAM: 01/01/2019 COMPARISON: None HISTORY: abd pain CT DLP: 1561.1 mGycm Automated exposure control for dose reduction was used. TECHNIQUE: Helical acquisition of images was performed from the lung bases through the pelvis. CONTRAST: Performed without Oral Contrast and with IV Contrast, patient injected with 80 mL of Isovue 300. FINDINGS: Lung bases are clear of consolidation. There is mild subsegmental atelectasis left lower lobe. Heart size is normal. There is no pericardial effusion. Stomach is intact. Liver spleen pancreas gall bladder appear normal. Bile ducts are not dilated. There is no adrenal mass. Kidneys show satisfactory contrast opacification. There is no hydronephrosi s. There are left renal cortical cysts that measure up to 3 cm. Ureters are not dilated. There is no retroperitoneal adenopathy. Bladder distends smoothly. There is right hip prosthesis. There are sigmo id diverticula. There is no sign of diverticulitis. There is no inguinal hernia. Appendix appears normal. There is no mesenteric edema. There is no ascites or free air. There is no s ign of a bowel obstruction. There is mild spondylotic changes in the lumbar spine. There is no compre ssion fracture. There is increased density along the right psoas muscle extending into the right groin. There is a lo w attenuation area consistent with fluid that measures up to 4.5 cm anterior to the right hip prosthe sis. IMPRESSION: NO EVIDENCE OF RENAL STONE OR OBSTRUCTION. NORMAL APPENDIX. There is some thickening along the right psoas muscle with low-attenuation extending into the right a nterior hip that could relate to chronic hematoma or less likely an abscess.
[2019-01-01] MEDS ORDERED: MORPHINE SULFATE 4 MG/ML SYRINGE IVP STA (00:53)
[2019-01-01] MEDS ORDERED: ONDANSETRON 4 MG/2 ML VIAL IVP STA (00:54)
--- NOTE | 2019-01-01 01:53 | US ---
EXAMINATION TYPE: US venous doppler duplex LE RT DATE OF EXAM: 01/01/2019 1:38 AM COMPARISON: NONE CLINICAL HISTORY: Right leg swelling; recent total right hip. Right hip replacement 12-19-18, abdomin al and pelvic pain per patient. SIDE PERFORMED: Right TECHNIQUE: The lower extremity deep venous system is examined utilizing real time linear array sonog donte with graded compression, doppler sonography and color-flow sonography. VESSELS IMAGED: Common Femoral Vein Deep Femoral Vein Greater Saphenous Vein * Femoral Vein Popliteal Vein Small Saphenous Vein * Proximal Calf Veins (* superficial vessels) Lateral to right CFV and medial to right hip dressing site a fluid collection is noted = 7.4 x 4.9 x 2.0cm. Right Leg: Negative for DVT as technologist was able to assess as patient unable to bend or rotate k nee to assess popliteal vein. IMPRESSION: No evidence of deep venous thrombosis in the right leg. There is a elongated subcutaneous fluid collection near the dressing that could be a hematoma or abscess or seroma.
--- NOTE | 2019-01-01 02:15 | ED ---
Abdominal Pain HPI - General Chief Complaint: Abdominal Pain Stated Complaint: abd pain Time Seen by Provider: 12/31/18 22:48 Source: patient, EMS Mode of arrival: EMS Limitations: no limitations - History of Present Illness Initial Comments: 78-year-old male patient presents to the emergency department today for evaluation of abdominal pain. Patient states that approximately 30 minutes prior to arrival he had sudden onset of pain from his knees up to his chest. Patient states the pain was generalized including his back. States it was intense and very painful. Denies any nausea or vomiting with this. States he has been constipated. He has been taking opiate pain medications since having a right total hip replacement [address] Jean Baptiste. Patient states he is having pain to the medial thigh currently. States that his abdominal pain has improved. Denies fever or chills. Denies previous abdominal surgeries. Patient denies any recent rash, shortness breath, numbness, tingling, dizziness, weakness, hematuria, dysuria, urinary urgency, urinary frequency, headache, visual changes, or any other complaints. - Related Data Home Medications Medication Instructions Recorded Confirmed Aspirin [Adult Low Dose Aspirin EC] 81 mg PO DAILY 12/06/14 12/19/18 metFORMIN HCL [Glucophage] 500 mg PO TID 12/06/14 12/09/18 Calcium Carbonate [Calcium] 300 mg PO BID 08/05/17 12/09/18 Levothyroxine Sodium [Synthroid] 75 mcg PO QAM 08/05/17 12/09/18 Losartan [Cozaar] 25 mg PO QAM 08/05/17 12/09/18 [place] 3 Cap 350 mg PO DAILY 08/05/17 12/09/18 Tamsulosin [Flomax] 0.4 mg PO DAILY 08/05/17 12/09/18 Previous Rx's Medication Instructions Recorded Atorvastatin [Lipitor] 80 mg PO HS #90 tab 08/19/17 Metoprolol Tartrate [Lopressor] 25 mg PO BID #180 tab 08/19/17 Nitroglycerin Sl Tabs [Nitrostat] 0.4 mg SUBLINGUAL Q5M PRN #25 tab 08/19/17 Aspirin 325 mg PO BID #60 tab 12/20/18 HYDROcodone/APAP 5-325MG [[place] 1 - 2 tab PO Q6HR PRN #56 tab 12/20/18 5-325] Sennosides [Senokot] 1 tab PO BID #60 tablet 12/20/18 Polyethylene Glycol 3350 [Miralax] 17 gm PO DAILY #30 packet 01/01/19 Allergies Allergy/AdvReac Type Severity Reaction Status Date / Time No Known Allergies Allergy Verified 12/19/18 12:01 Review of Systems ROS Statement: Those systems with pertinent positive or pertinent negative responses have been documented in the HPI. ROS Other: All systems not noted in ROS Statement are negative. Past Medical History Past Medical History: Diabetes Mellitus, Eye Disorder, Hyperlipidemia, Hyperte nsion, Prostate Disorder, Thyroid Disorder Additional Past Medical History / Comment(s): Bilateral cataracts, enlarged prostate. History of Any Multi-Drug Resistant Organisms: None Reported Past Surgical History: Heart Catheterization With Stent, Joint Replacement Additional Past Surgical History / Comment(s): 3 colonoscopies, cardiac stents X2, R hip replacement 12/2018 Past Anesthesia/Blood Transfusion Reactions: No Reported Reaction, Motion Sickness Date of Last Stent Placement:: 11/08/2017 Past Psychological History: No Psychological Hx Reported Smoking Status: Never smoker Past Alcohol Use History: None Reported Past Drug Use History: None Reported - Past Family History Father Family Medical History: Cancer General Exam Limitations: no limitations General appearance: alert, in no apparent distress, other (This is a well- developed, well-nourished elderly male patient in no acute distress. Vital signs upon presentation are temperature 98.4F, pulse 84, respirations 18, blood pressure 160/71, pulse ox 100% on room air.) Eye exam: Present: normal appearance, PERRL, EOMI. Absent: scleral icterus, conjunctival injection, periorbital swelling ENT exam: Present: normal exam, normal oropharynx, mucous membranes moist Respiratory exam: Present: normal lung sounds bilaterally. Absent: respiratory distress, wheezes, rales, rhonchi, stridor Cardiovascular Exam: Present: regular rate, normal rhythm, normal heart sounds. Absent: systolic murmur, diastolic murmur, rubs, gallop, clicks GI/Abdominal exam: Present: soft, normal bowel sounds. Absent: distended, tenderness, guarding, rebound, rigid Neurological exam: Present: alert, oriented X3, CN II-XII intact Psychiatric exam: Present: normal affect, normal mood Skin exam: Present: warm, dry, intact, normal color. Absent: rash Course Vital Signs 12/31/18 01/01/19 22:44 00:33 Temperature 98.4 F Pulse Rate 84 87 Respiratory 18 18 Rate Blood Pressure 160/71 145/72 O2 Sat by Pulse 100 97 Oximetry Medical Decision Making - Medical Decision Making 78-year-old male patient is brought to the emergency department today for evaluation of abdominal pain. Physical examination reveals soft nontender abdomen. Right leg did exhibit generalized swelling. There is good neurovascular status. CT abdomen and pelvis was obtained and showed no acute abdominal abdomen ALLERGIES however there was evidence for hematoma to the right soas muscle region. Labs reviewed and revealed normal white blood cell count. Patient is afebrile, vital signs. Patient did complain of constipation, we did try an enema with no results. Patient will be given prescription for MiraLAX. They're instructed to follow-up with the primary care physician for recheck in 1-2 days. They're instructed to follow-up with their public finance specialist, they're instructed to inform them regarding hematoma, record presented to his office. Return parameters discussed in detail. Patient and family verbalizes understanding and agrees with this plan. - Lab Data Result diagrams: 12/31/18 22:56 12/31/18 22:56 Lab Results 12/31/18 12/31/18 12/31/18 Range/Units 22:56 22:56 22:56 WBC 9.3 (3.8-10.6) k/uL RBC 3.21 L (4.30-5.90) m/uL Hgb 9.9 L (13.0-17.5) gm/dL Hct 29.9 L (39.0-53.0) % MCV 93.2 (80.0-100.0) fL MCH 31.0 (25.0-35.0) pg MCHC 33.2 (31.0-37.0) g/dL RDW 12.9 (11.5-15.5) % Plt Count 423 D (150-450) k/uL Neutrophils % 80 % Lymphocytes % 7 % Monocytes % 6 % Eosinophils % 3 % Basophils % 3 % Neutrophils # 7.4 (1.3-7.7) k/uL Lymphocytes # 0.7 L (1.0-4.8) k/uL Monocytes # 0.5 (0-1.0) k/uL Eosinophils # 0.3 (0-0.7) k/uL Basophils # 0.3 H (0-0.2) k/uL Sodium 137 (137-145) mmol/L Potassium 5.4 H (3.5-5.1) mmol/L Chloride 104 (98-107) mmol/L Carbon Dioxide 23 (22-30) mmol/L Anion Gap 10 mmol/L BUN 31 H (9-20) mg/dL Creatinine 1.18 (0.66-1.25) mg/dL Est GFR (CKD-EPI)AfAm 67 (>60 ml/min/1.73 sqM) Est GFR (CKD-EPI)NonAf 58 (>60 ml/min/1.73 sqM) Glucose 177 H (74-99) mg/dL Calcium 9.3 (8.4-10.2) mg/dL Total Bilirubin 0.5 (0.2-1.3) mg/dL AST 33 (17-59) U/L ALT 31 (21-72) U/L Alkaline Phosphatase 71 (38-126) U/L Troponin I <0.012 (0.000-0.034) ng/mL Total Protein 6.3 (6.3-8.2) g/dL Albumin 3.3 L (3.5-5.0) g/dL Amylase 41 (30-110) U/L Lipase 44 (23-300) U/L Urine Color Urine Appearance (Clear) Urine pH (5.0-8.0) Ur Specific [place] (1.001-1.035) Urine Protein (Negative) Urine Glucose (UA) (Negative) Urine Ketones (Negative) Urine Blood (Negative) Urine Nitrite (Negative) Urine Bilirubin (Negative) Urine Urobilinogen (<2.0) mg/dL Ur Leukocyte Esterase (Negative) 12/31/18 Range/Units 23:11 WBC (3.8-10.6) k/uL RBC (4.30-5.90) m/uL Hgb (13.0-17.5) gm/dL Hct (39.0-53.0) % MCV (80.0-100.0) fL MCH (25.0-35.0) pg MCHC (31.0-37.0) g/dL RDW (11.5-15.5) % Plt Count (150-450) k/uL Neutrophils % % Lymphocytes % % Monocytes % % Eosinophils % % Basophils % % Neutrophils # (1.3-7.7) k/uL Lymphocytes # (1.0-4.8) k/uL Monocytes # (0-1.0) k/uL Eosinophils # (0-0.7) k/uL Basophils # (0-0.2) k/uL Sodium (137-145) mmol/L Potassium (3.5-5.1) mmol/L Chloride (98-107) mmol/L Carbon Dioxide (22-30) mmol/L Anion Gap mmol/L BUN (9-20) mg/dL Creatinine (0.66-1.25) mg/dL Est GFR (CKD-EPI)AfAm (>60 ml/min/1.73 sqM) Est GFR (CKD-EPI)NonAf (>60 ml/min/1.73 sqM) Glucose (74-99) mg/dL Calcium (8.4-10.2) mg/dL Total Bilirubin (0.2-1.3) mg/dL AST (17-59) U/L ALT (21-72) U/L Alkaline Phosphatase (38-126) U/L Troponin I (0.000-0.034) ng/mL Total Protein (6.3-8.2) g/dL Albumin (3.5-5.0) g/dL Amylase (30-110) U/L Lipase (23-300) U/L Urine Color Yellow Urine Appearance Clear (Clear) Urine pH 5.5 (5.0-8.0) Ur Specific [place] 1.023 (1.001-1.035) Urine Protein Trace H (Negative) Urine Glucose (UA) Negative (Negative) Urine Ketones Negative (Negative) Urine Blood Negative (Negative) Urine Nitrite Negative (Negative) Urine Bilirubin Negative (Negative) Urine Urobilinogen 2.0 (<2.0) mg/dL Ur Leukocyte Esterase Negative (Negative) - EKG Data -: EKG Interpreted by Me EKG Comments: EKG obtained at 2311 shows normal sinus rhythm with a ventricular rate of 81, WI interval 160, QRS duration 82, QT 376, QTc 436. No evidence of ST elevation or depression. - Radiology Data Radiology results: report reviewed, image reviewed CT abdomen and pelvis is obtained. Report was reviewed in its entirety. Impression by Dr. sondra naik and shows no evidence of renal stone or obstruction. Normal appendix. There is some thickening on the right psoas muscle low attenuation extending into the right anterior at the could relate to chronic hematoma or less likely an abscess. Ultrasound of the right lower extremities was obtained. Report was reviewed in its entirety. Impression by Dr. Roberson shows negative for DVT. No evidence of deep venous thrombosis. There is elongated subcutaneous fluid collection at the dressing that could be hematoma or abscess or seroma Disposition Clinical Impression: Abdominal pain, Hip hematoma, right Disposition: HOME SELF-CARE Condition: Good Instructions (If sedation given, give patient instructions): Abdominal Pain (ED), Hematoma (ED) Additional Instructions: Follow up with your public finance specialist for recheck as planned. Follow up with your primary care physician for recheck in 1-2 days. Return to the emergency department for any new, worsening, or concerning symptoms. Prescriptions: Polyethylene Glycol 3350 [Miralax] 17 gm PO DAILY #30 packet Is patient prescribed a controlled substance at d/c from ED?: No Referrals: Romaine Castillo MD [Primary Care Provider] - 1-2 days Marcial Jean Baptiste DO [Doctor of Osteopathic Medicine] - 1-2 days Time of Disposition: 03:47
[2019-01-01 04:27] VITALS: BP 133/66; PULSE 80
== END 2019-01-01 04:15 | disposition home or self-care (01) ==
LOC: EC 22:40
DX: S70.01XA Contusion of right hip, initial encounter (principal); R10.9 Unspecified abdominal pain; K59.00 Constipation, unspecified; E11.9 Type 2 diabetes mellitus without complications; I10 Essential (primary) hypertension; E07.9 Disorder of thyroid, unspecified; Z79.82 Long term (current) use of aspirin; Z79.84 Long term (current) use of oral hypoglycemic drugs; Z79.890 Hormone replacement therapy; Z79.899 Other long term (current) drug therapy; Z95.5 Presence of coronary angioplasty implant and graft; Z96.641 Presence of right artificial hip joint
CPT/HCPCS: 36415; 93005; 80053; 82150; 83690; 84484; 85025; 81003; 93971; 74177; 99284; 96374; 96375; J2270; J2405; Q9967

== ENCOUNTER 2019-01-02 14:09 | Inpatient (IN) | payer MEDICARE ==
[2019-01-02] MEDS ORDERED: traMADol 50 MG TAB PO PRN (15:12)
[2019-01-02] MEDS ORDERED: NALOXONE 0.4 MG/ML 1 ML VIAL IV PRN (15:12)
[2019-01-02] MEDS ORDERED: MAGNESIUM HYDROXIDE 2,400 MG/10 ML CUP PO PRN (15:12)
[2019-01-02] MEDS ORDERED: ACETAMINOPHEN TAB 325 MG TAB PO PRN (15:22)
[2019-01-02 16:28] LABS: Glucose,Whole Blood 118 mg/dL (75-99)
[2019-01-02 16:49] LABS: Basophils # (A) 0.1 k/uL (0-0.2); Basophils % (A) 1 %; Eosinophils # (A) 0.2 k/uL (0-0.7); Eosinophils % (A) 3 %; HCT 28.6 % (39.0-53.0); HGB 9.4 gm/dL (13.0-17.5); Lymphocytes # (A) 1.1 k/uL (1.0-4.8); Lymphocytes % (A) 13 %; MCH 31.1 pg (25.0-35.0); MCHC 32.9 g/dL (31.0-37.0); MCV 94.5 fL (80.0-100.0); Mean Platelet Volume 6.2; Monocytes # (A) 0.5 k/uL (0-1.0); Monocytes % (A) 6 %; Neutrophils # (A) 6.1 k/uL (1.3-7.7); Neutrophils % (A) 76 %; Platelet Count 477 k/uL (150-450); RBC 3.03 m/uL (4.30-5.90); RDW 12.9 % (11.5-15.5); WBC 8.1 k/uL (3.8-10.6)
[2019-01-02 16:56] LABS: Calcium 9.2 mg/dL (8.4-10.2); Potassium 5.2 mmol/L (3.5-5.1)
[2019-01-02] MEDS ORDERED: HYDROcodone/APAP 5-325MG 1 EACH TAB PO PRN ×2 (17:35→17:39)
[2019-01-02] MEDS ORDERED: NITROGLYCERIN SL TABS 0.4 MG TAB SUBLINGUAL PRN (17:35)
[2019-01-02] MEDS: SODIUM CHLORIDE 0.9% 1,000 ML IV SCH (17:52)
--- NOTE | 2019-01-02 18:06 | XR ---
EXAMINATION TYPE: XR chest 1V portable DATE OF EXAM: 01/02/2019 COMPARISON: NONE HISTORY: Heart failure TECHNIQUE: Single frontal view of the chest is obtained. FINDINGS: Heart and mediastinum are normal. Lungs are clear. Diaphragm is normal. Bony thorax is int act. IMPRESSION: Normal chest. No change.
[2019-01-02 20:13] LABS: Glucose,Whole Blood 207 mg/dL (75-99)
[2019-01-02] MEDS: ATORVASTATIN 80 MG TAB PO SCH (20:32)
[2019-01-02] MEDS: HEPARIN SODIUM,PORCINE 5,000 UNIT/ML 1 ML VIAL SQ SCH (20:32)
[2019-01-02] MEDS: INSULIN ASPART (NovoLOG) 100 UNIT/ML VIAL SQ SCH (20:32)
[2019-01-02] MEDS: METOPROLOL TARTRATE 25 MG TAB PO SCH (20:32)
[2019-01-02] MEDS: ASPIRIN 325 MG TAB PO SCH (20:32)
[2019-01-02] MEDS: SENNOSIDES-DOCUSATE SODIUM 1 EACH TAB PO SCH (20:32)
[2019-01-02] MEDS: metFORMIN 500 MG TAB PO SCH (20:43)
[2019-01-02] MEDS ORDERED: SENNOSIDES 8.6 MG TAB PO SCH (21:00)
--- NOTE | 2019-01-02 21:02 | CONS ---
CONSULTATION DATE OF SERVICE: 01/02/2019 REASON FOR CONSULTATION: Advice regarding diabetes and other medical issues requested by Orthopedic surgery. HISTORY OF PRESENT ILLNESS: This 78-year-old gentleman with a past history of diabetes, hypertension, hyperlipidemia, history of cataracts, history of coronary artery disease/stent being followed by Dr. Fredo Castillo in the outpatient setting was admitted recently with right hip arthroplasty. After surgery, the patient went home and the patient was doing home PT/OT, but subsequently the family noted issues with pain and during the last 3 to 4 days, the patient has taken a significant deterioration as far as the power is concerned. The patient was taken to [facility] and admitted to the hospital for further evaluation and treatment. There is no history of fever, rigors. No history of chest pain, palpitation, headache, loss of consciousness, seizures. PAST MEDICAL HISTORY: History of diabetes type 2, hypertension, hyperlipidemia, history of bilateral cataracts, CAD/stent. MEDICATION: Home medications are: 1. Synthroid 75 mcg p.o. q.a.m. 2. [place] 5 mg q.6h p.r.n. 3. Lipitor 80 mg q.h.s. 4. Aspirin 81 mg p.o. daily. 5. Glucophage 500 mg p.o. t.i.d. 6. Flomax 0.4 daily. 7. Senokot 1 tablet p.o. b.i.d. 8. MiraLAX 17 g p.o. daily. 9. Nitrostat 0.4 subcu 5 p.r.n. 10.Lopressor 25 mg p.o. b.i.d. 11.Cozaar 25 mg q.a.m. ALLERGIES: None. FAMILY HISTORY: History of cancer in the family. SOCIAL HISTORY: No history of smoking. No alcohol intake. REVIEW OF SYSTEMS: ENT: No diminished vision. No diminished hearing. CARDIOVASCULAR: No angina or palpitations. RESPIRATORY: No cough. No hemoptysis. GI no nausea or vomiting. no dysuria or hematuria. Nervous system: No numbness or weakness. Allergy/Immunology: No asthma or hayfever. Musculoskeletal as mentioned earlier. Hematology/Oncology: No history of anemia. ENDOCRINE: Hypothyroidism. CONSTITUTIONAL: As mentioned earlier. DERMATOLOGY: Negative. RHEUMATOLOGY negative. PSYCHIATRY as mentioned earlier. PHYSICAL EXAMINATION: Patient is alert and oriented x 2. Pulse 69, blood pressure 116/69, respiration 18, temperature 98.6, pulse ox 98% on room air. HEENT: Conjunctivae normal. NECK: No jugular venous distention. CARDIOVASCULAR: S1, S2 muffled. RESPIRATORY: Breath sounds diminished in the bases. A few rhonchi. No crackles. ABDOMEN: Soft, nontender. No mass palpable. LEGS: No edema. No swelling. NERVOUS SYSTEM: Higher functions as mentioned earlier. Moves all four limbs. No focal motor or sensory deficits. LYMPHATICS: No lymph nodes palpable in the neck, axillae or groin. JOINTS: No active deforming arthropathy. LABS: WBC 8.1, hemoglobin 9.4, sodium 137, potassium 5.2, glucose 118. ASSESSMENT: 1. Diffuse weakness and proximal myopathy, possibly. 2. Diabetes type 2. 3. History of recent right hip arthroplasty. 4. History of severe right hip pain. 5. Gait dysfunction. 6. Anemia, normocytic anemia of chronic disease. 7. Mild hyperkalemia. 8. History of hypertension. 9. Hyperlipidemia. 10.Hypothyroidism. 11.History of bilateral cataracts. 12.Coronary artery disease, stent. 13.History of colonoscopies. 14.History of degenerative joint disease. 15.FULL CODE. RECOMMENDATIONS AND DISCUSSION: In this 78-year-old gentleman who presented with multiple complex medical issues. I would recommend to continue current medications. Baseline labs. Also recommend TSH. Monitor blood sugars closely. Otherwise, I would recommend resume the home medications. Repeat labs in the morning. PT/OT evaluation. DVT prophylaxis. Copy of dictation being forwarded to Dr. Fredo Castillo who is the primary physician. Possible ECF rehab. We will follow the patient closely with you. Thank you Dr. Jean Baptiste, for letting us participate in the care of this patient. MMODL / IJN: [id number] /
[2019-01-03] MEDS ORDERED: LEVOTHYROXINE 75 MCG TAB ONE (05:00)
[2019-01-03] MEDS: LEVOTHYROXINE 75 MCG TAB PO SCH (05:42)
[2019-01-03 05:51] LABS: Appearance,Urine Clear (Clear); Bilirubin,Urine Negative (Negative); Blood,Urine Negative (Negative); Color,Urine Light Yellow; Glucose,Urine (UA) Negative (Negative); Ketones,Urine Negative (Negative); Leukocyte Esterase,Urine Negative (Negative); Nitrite,Urine Negative (Negative); PH, Urine 7.5 (5.0-8.0); Protein,Urine Negative (Negative); Specific Gravity,Urine 1.012 (1.001-1.035)
[2019-01-03 07:01] LABS: Glucose,Whole Blood 125 mg/dL (75-99)
[2019-01-03] MEDS: INSULIN ASPART (NovoLOG) 100 UNIT/ML VIAL SQ SCH ×4 (07:44→20:24)
[2019-01-03] MEDS: POLYETHYLENE GLYCOL 3350 17 GM POWD.PACK PO SCH (09:00)
[2019-01-03] MEDS ORDERED: NON FORMULARY DRUG (Aspirin [Adult Low Dose Aspirin Ec] 81 MG) PO SCH (09:00)
[2019-01-03] MEDS: METOPROLOL TARTRATE 25 MG TAB PO SCH ×2 (09:06→21:42)
[2019-01-03] MEDS: LOSARTAN 25 MG TAB PO SCH (09:06)
[2019-01-03] MEDS: metFORMIN 500 MG TAB PO SCH ×3 (09:06→17:25)
[2019-01-03] MEDS: HEPARIN SODIUM,PORCINE 5,000 UNIT/ML 1 ML VIAL SQ SCH ×2 (09:06→21:42)
[2019-01-03] MEDS: SODIUM CHLORIDE 0.9% 1,000 ML IV SCH (09:06)
[2019-01-03] MEDS: TAMSULOSIN 0.4 MG CAP.ER.24H PO SCH (09:06)
[2019-01-03] MEDS: ASPIRIN 325 MG TAB PO SCH ×2 (09:06→21:42)
[2019-01-03 09:43] LABS: INR 1.1 (<1.2); Prothrombin Time 11.3 sec (9.0-12.0)
[2019-01-03 09:50] LABS: Albumin 2.9 g/dL (3.5-5.0); Calcium 8.6 mg/dL (8.4-10.2); Potassium 4.6 mmol/L (3.5-5.1); Total Bilirubin 0.7 mg/dL (0.2-1.3); Total Protein 5.5 g/dL (6.3-8.2)
--- NOTE | 2019-01-03 11:32 | P.HPOR ---
History of Present Illness H&P Date: 01/03/19 This is an 78-year-old male who is admitted for right hip pain and frequent falls. Patient is status post right total hip arthroplasty on 12/19/[address] Marcial Jean Baptiste. Patient presented for routine outpatient postoperative follow- up on 01/02/2019 and the patient's family expressed concern about the patient's pain and stated that the patient has fallen since surgery. Per the patient's family, Nico has not been able to ambulate very well at home. Patient was then admitted to [facility] for ECF placement. Patient was recently in the emergency room on 12/31/2018 for abdominal pain. At this time a Doppler ultrasound of the right lower extremity was negative for DVT. Today, patient is seen and evaluated at bedside with Dr. Marcial Jean Baptiste. Patient states that he is feeling well and he denies any new complaints today. Patient denies any fever/chills, numbness, weakness, tingling, abdominal pain, shortness of breath or chest pain. Review of Systems See HPI. Past Medical History Past Medical History: Diabetes Mellitus, Eye Disorder, Hyperlipidemia, Hypertension, Prostate Disorder, Thyroid Disorder Additional Past Medical History / Comment(s): Bilateral cataracts, enlarged prostate. History of Any Multi-Drug Resistant Organisms: None Reported Past Surgical History: Heart Catheterization With Stent, Joint Replacement Additional Past Surgical History / Comment(s): 3 colonoscopies, cardiac stents X2, R hip replacement 12/2018 Past Anesthesia/Blood Transfusion Reactions: No Reported Reaction, Motion Sickness Date of Last Stent Placement:: 11/08/2017 Past Psychological History: No Psychological Hx Reported Smoking Status: Never smoker Past Alcohol Use History: None Reported Past Drug Use History: None Reported - Past Family History Father Family Medical History: Cancer Medications and Allergies Home Medications Medication Instructions Recorded Confirmed Type Aspirin [Adult Low Dose Aspirin EC] 81 mg PO DAILY 12/06/14 01/02/19 History metFORMIN HCL [Glucophage] 500 mg PO TID 12/06/14 01/02/19 History Levothyroxine Sodium [Synthroid] 75 mcg PO QAM 08/05/17 01/02/19 History Losartan [Cozaar] 25 mg PO QAM 08/05/17 01/02/19 History Tamsulosin [Flomax] 0.4 mg PO DAILY 08/05/17 01/02/19 History Atorvastatin [Lipitor] 80 mg PO HS #90 tab 08/19/17 01/02/19 Rx Metoprolol Tartrate [Lopressor] 25 mg PO BID #180 tab 08/19/17 01/02/19 Rx Nitroglycerin Sl Tabs [Nitrostat] 0.4 mg SUBLINGUAL Q5M PRN #25 tab 08/19/17 01/02/19 Rx HYDROcodone/APAP 5-325MG [[place] 1 - 2 tab PO Q6HR PRN #56 tab 12/20/18 01/02/19 Rx 5-325] Sennosides [Senokot] 1 tab PO BID #60 tablet 12/20/18 01/02/19 Rx Polyethylene Glycol 3350 [Miralax] 17 gm PO DAILY #30 packet 01/01/19 01/02/19 Rx Allergies Allergy/AdvReac Type Severity Reaction Status Date / Time No Known Allergies Allergy Verified 01/02/19 16:52 Physical Examination Vital signs are stable. Patient is in no acute distress and is alert and oriented 3. Calf is soft and nontender to palpation. Dressing is clean, dry, and intact. Patient has difficulty with active range of motion of the right lower extremity due to pain. Passive range of motion of the right hip is painf ul. Patient has full foot and ankle motion without pain or difficulty. Neurovascular status and circulatory status are intact. Results - Labs Labs: Abnormal Lab Results - Last 24 Hours (Table) 01/02/19 01/02/19 01/02/19 Range/Units 16:15 16:15 16:26 RBC 3.03 L (4.30-5.90) m/uL Hgb 9.4 L (13.0-17.5) gm/dL Hct 28.6 L (39.0-53.0) % Plt Count 477 H (150-450) k/uL Potassium 5.2 H (3.5-5.1) mmol/L BUN 26 H (9-20) mg/dL Glucose 109 H (74-99) mg/dL POC Glucose (mg/dL) 118 H (75-99) mg/dL Total Protein (6.3-8.2) g/dL Albumin (3.5-5.0) g/dL 01/02/19 01/03/19 01/03/19 Range/Units 20:08 06:57 08:38 RBC (4.30-5.90) m/uL Hgb (13.0-17.5) gm/dL Hct (39.0-53.0) % Plt Count (150-450) k/uL Potassium (3.5-5.1) mmol/L BUN 24 H (9-20) mg/dL Glucose 121 H (74-99) mg/dL POC Glucose (mg/dL) 207 H 125 H (75-99) mg/dL Total Protein 5.5 L (6.3-8.2) g/dL Albumin 2.9 L (3.5-5.0) g/dL H & H 01/02/19 Range/Units 16:15 Hgb 9.4 L (13.0-17.5) gm/dL Hct 28.6 L (39.0-53.0) % Coagulation 01/03/19 Range/Units 08:38 INR 1.1 (<1.2) Result Diagrams: 01/02/19 16:15 01/03/19 08:38 Assessment and Plan (1) Frequent falls Current Visit: Yes Status: Acute Code(s): R29.6 - REPEATED FALLS SNOMED Code(s): 348348403 (2) Right hip pain Current Visit: Yes Status: Acute Code(s): M25.551 - PAIN IN RIGHT HIP SNOMED Code(s): 97009576 (3) S/P total hip arthroplasty Current Visit: No Status: Acute Code(s): Z96.649 - PRESENCE OF UNSPECIFIED ARTIFICIAL HIP JOINT SNOMED Code(s): 981384513760 Plan: Continue routine postop care and pain control. Continue anticoagulation with aspirin. Weightbearing as tolerated with a walker. Leave dressing in place for 10 days. Appreciate input from medicine. Patient is awaiting ECF placement.
[2019-01-03 11:40] LABS: Glucose,Whole Blood 136 mg/dL (75-99)
[2019-01-03 12:30] LABS: Basophils # (A) 0.1 k/uL (0-0.2); Basophils % (A) 1 %; Eosinophils # (A) 0.4 k/uL (0-0.7); Eosinophils % (A) 5 %; HCT 28.5 % (39.0-53.0); HGB 9.4 gm/dL (13.0-17.5); Lymphocytes # (A) 0.9 k/uL (1.0-4.8); Lymphocytes % (A) 11 %; MCH 30.9 pg (25.0-35.0); MCV 93.6 fL (80.0-100.0); Mean Platelet Volume 6.5; Monocytes # (A) 0.5 k/uL (0-1.0); Monocytes % (A) 6 %; Neutrophils % (A) 75 %; Platelet Count 496 k/uL (150-450); RBC 3.05 m/uL (4.30-5.90)
[2019-01-03 16:53] LABS: Glucose,Whole Blood 137 mg/dL (75-99)
--- NOTE | 2019-01-03 19:16 | PN ---
PROGRESS NOTE DATE OF SERVICE: 01/03/2019. This 78-year-old gentleman who was admitted with diffuse weakness with proximal myopathy is being closely monitored. Patient also complained of right hip pain also. ECF rehab is also considered. No chest pain. No palpitations. No fever. PHYSICAL EXAM: Alert and oriented x3. Pulse is 76. Blood pressure 115/50, respirations 16, temperature is 98.8. HEENT: Conjunctivae normal. NECK: No JVD. CARDIOVASCULAR: S1, S2 muffled. RESPIRATIONS: Breath sounds diminished in the bases. No rhonchi. No crackles. ABDOMEN is soft, nontender. No mass palpable. LEGS: Minimal pain on the right hip and significant weakness also present. LABS: WBC 8, hemoglobin 9.4, albumin is 2.9. ASSESSMENT: 1. Diffuse weakness and possible proximal myopathy, possibly. 2. Diabetes mellitus type 2. 3. History of recent right hip arthroplasty with pain. 4. Gait dysfunction. 5. Anemia, normocytic anemia of chronic disease. 6. Mild hyperkalemia. 7. Hypertension. 8. Hyperlipidemia. 9. Hypothyroidism. 10.History of bilateral cataracts. 11.History of coronary artery disease/ stent. 12.History of colonoscopies. 13.History of degenerative joint disease. 14.FULL CODE. RECOMMENDATIONS AND DISCUSSION: Recommend to continue current medications, continue to monitor and symptomatic treatment. Otherwise, at this time, we will we will monitor closely. PT/OT evaluation, possible ECF rehab. Further recommendations to follow. MMODL / IJN: [id number] /
[2019-01-03 20:28] LABS: Glucose,Whole Blood 127 mg/dL (75-99)
[2019-01-03] MEDS: ATORVASTATIN 80 MG TAB PO SCH (21:42)
[2019-01-03] MEDS: SENNOSIDES-DOCUSATE SODIUM 1 EACH TAB PO SCH (21:42)
[2019-01-04] MEDS: SODIUM CHLORIDE 0.9% 1,000 ML IV SCH (04:33)
[2019-01-04] MEDS: LEVOTHYROXINE 75 MCG TAB PO SCH (04:35)
[2019-01-04 06:54] LABS: Glucose,Whole Blood 120 mg/dL (75-99)
[2019-01-04] MEDS: INSULIN ASPART (NovoLOG) 100 UNIT/ML VIAL SQ SCH ×4 (06:54→21:02)
[2019-01-04] MEDS: metFORMIN 500 MG TAB PO SCH ×3 (08:04→17:33)
[2019-01-04] MEDS: METOPROLOL TARTRATE 25 MG TAB PO SCH ×2 (08:04→21:06)
[2019-01-04] MEDS: POLYETHYLENE GLYCOL 3350 17 GM POWD.PACK PO SCH (08:04)
[2019-01-04] MEDS: TAMSULOSIN 0.4 MG CAP.ER.24H PO SCH (08:04)
[2019-01-04] MEDS: LOSARTAN 25 MG TAB PO SCH (08:04)
[2019-01-04] MEDS: HEPARIN SODIUM,PORCINE 5,000 UNIT/ML 1 ML VIAL SQ SCH ×2 (08:04→21:06)
[2019-01-04] MEDS: ASPIRIN 325 MG TAB PO SCH (08:04)
--- NOTE | 2019-01-04 08:50 | P.PN ---
Subjective Progress Note Date: 01/04/19 This is an 78-year-old male who is status post right total hip arthroplasty on 12/19/2018. Patient is readmitted for rehab placement. Patient appears somewhat confused today. Patient is seen and evaluated at bedside with Dr. Marcial Jean Baptiste this morning. Per physical therapy, patient was able to walk with assistance in his hospital room yesterday, but has had difficulty getting in and out of bed. Patient denies any fever/chills, numbness, weakness, tingling, abdominal pain, shortness of breath or chest pain. Objective - Vital Signs Vital signs: Vital Signs Temp 98.2 F 01/04/19 07:36 Pulse 73 01/04/19 07:36 Resp 16 01/04/19 07:36 BP 160/74 01/04/19 07:36 Pulse Ox 95 01/04/19 07:36 Intake & Output 01/03/19 01/04/19 01/04/19 18:59 06:59 18:59 Intake Total 450 1280 Output Total 325 Balance 125 1280 Intake: Oral 450 1280 Output: Urine 325 Other: Voiding Method Urinal Urinal # Voids 1 - Exam Vital signs are stable. Patient is in no acute distress and is alert. Calf is soft and nontender to palpation. Dressing is clean, dry, and intact. Patient has full foot and ankle motion without pain or difficulty. Neurovascular status and circulatory status are intact. - Labs CBC & Chem 7: 01/03/19 11:23 01/03/19 08:38 Labs: Abnormal Lab Results - Last 24 Hours (Table) 01/03/19 01/03/19 01/03/19 Range/Units 08:38 11:23 11:37 RBC 3.05 L (4.30-5.90) m/uL Hgb 9.4 L (13.0-17.5) gm/dL Hct 28.5 L (39.0-53.0) % Plt Count 496 H (150-450) k/uL Lymphocytes # 0.9 L (1.0-4.8) k/uL BUN 24 H (9-20) mg/dL Glucose 121 H (74-99) mg/dL POC Glucose (mg/dL) 136 H (75-99) mg/dL Total Protein 5.5 L (6.3-8.2) g/dL Albumin 2.9 L (3.5-5.0) g/dL 01/03/19 01/03/19 01/04/19 Range/Units 16:51 20:17 06:53 RBC (4.30-5.90) m/uL Hgb (13.0-17.5) gm/dL Hct (39.0-53.0) % Plt Count (150-450) k/uL Lymphocytes # (1.0-4.8) k/uL BUN (9-20) mg/dL Glucose (74-99) mg/dL POC Glucose (mg/dL) 137 H 127 H 120 H (75-99) mg/dL Total Protein (6.3-8.2) g/dL Albumin (3.5-5.0) g/dL Assessment and Plan (1) Frequent falls Current Visit: Yes Status: Acute Code(s): R29.6 - REPEATED FALLS SNOMED Code(s): 370212495 (2) Right hip pain Current Visit: Yes Status: Acute Code(s): M25.551 - PAIN IN RIGHT HIP SNOMED Code(s): 12648674 (3) S/P total hip arthroplasty Current Visit: No Status: Acute Code(s): Z96.649 - PRESENCE OF UNSPECIFIED ARTIFICIAL HIP JOINT SNOMED Code(s): 984641908644 Plan: Continue routine postop care and pain control. Continue anticoagulation with aspirin. Weightbearing as tolerated with a walker. Leave dressing in place for 10 days. Appreciate input from medicine. Patient is awaiting ECF placement.
[2019-01-04 11:23] LABS: Glucose,Whole Blood 142 mg/dL (75-99)
[2019-01-04 16:46] LABS: Glucose,Whole Blood 155 mg/dL (75-99)
--- NOTE | 2019-01-04 17:15 | P.CNNES ---
History of Present Illness Consult date: 01/04/19 Reason for Consult: Change in mental status Chief complaint: Change in mental status History of Present Illness: HISTORY OF PRESENT ILLNESS: Thank you for allowing me to evaluate Mr. Nico Holman. Mr. Holman is an 78 year-old man with PMhx of diabetes, HLD, HTN, hypothyroidism, bilateral cataracts, BPH, who presented to [facility] for R hip pain after hip replacement 1 week ago, consulting Neurology for AMS. Patient was discharged to home over the weekend, but he was in so much pain that he had to come to the hospital. He was given pain meds and discharged home. Patient's called the ortho surgeon's office, and due to patient's pain and requirement for therapy, decision was made to admit patient. On Wednesday, patient was somewhat at his baseline, but yesterday and today, patient has had more changes in his mental status where he seemed confused. Prior, patient never had any memory deficits. During evaluation, patient seemed to be getting better in terms of memory and mental status but still not back at his baseline. and grandson states that they saw patient swinging his arms and legs as if he's acting out his dream recently. states that there were episodes of patient hitting her in sleep, which appeared to be due to acting out his dream. That was about 4 years ago, and since, patient and his have been sleeping in separate beds. Patient has not had any issues with tremors, falls, depression. Patient does have constipation. PAST MEDICAL HISTORY: diabetes, HLD, HTN, hypothyroidism, bilateral cataracts, BPH PAST SURGICAL HISTORY: Heart catheterization with stent, R hip replacement in 12/2018 HOME MEDICATIONS: Levothyroxine, [place], atorvastatin, aspirin, metformin, tamsulosin, sennokot, miralax, metoprolol, losartan ALLERGIES: NKDA SOCIAL HISTORY: Never smoker. FAMILY HISTORY: Father had cancer. REVIEW OF SYSTEMS: The 14 systems are reviewed and no additional points are identified compared to the review of systems documented history and physical PHYSICAL EXAMINATION: VITAL SIGNS: T 98.1 HR 75 RR 15 BP 102/63 O2 sat 97% on RA GEN.: NAD, pleasant and cooperative HEENT: NCAT, sclera without icterus NECK: Supple, no carotid bruit SKIN AND EXTREMITIES: Warm to touch, no edema NEURO: MENTAL STATUS: Patient alert and oriented to self only. Able to redirect patient to say "2019" "hospital or home" and for president, patient initially said Vences, but when asked which one, he corrected himself and said "Trump." Speech fluent, able to name and repeat, following all commands readily. No right and left disorientation, neglect. Patient unable to spell "WORLD" but patient was always a poor speller, and unable to serial 7's. able to name his but difficulty remembering his grandson's name. CRANIAL NERVES II THROUGH XII: II: Pupils are equal and reactive to light symmetrically. No afferent pupillary defect. Visual liang are intact. III, IV, : No ptosis. Extraocular movements full. No nystagmus. V: Facial sensation intact from V1-3. VII. No clear facial asymmetry. VIII: Hearing intact to finger rub bilaterally. IX, X: Symmetric palate elevation. XI: Shoulder shrug intact. XII: Tongue midline without fasciculation or atrophy. MOTOR: Normal bulk. Increased tone in all 4 extremities. No pronator drift or tremor. Strength is 5/5 in b/l UE. Unable to move his RLE due to R hip pain, but patient able to dorsiflex/plantar flex with R foot. LLE 4+/5 strength. SENSORY: Slightly decreased to LT in LUE. Patient states that it's been that way since his polio? Otherwise, legs are intact to light touch bilaterally. REFLEXES: 2+ throughout. Toes are downgoing. COORDINATION: Finger to nose intact. No dysmetria. GAIT: deferred due to R hip pain. DIAGNOSTIC TESTING: LABORATORY: 01/03/19: WBC 8.0 hemoglobin 9.4 platelets 496 sodium 138 potassium 4.6 chloride 106 bicarb 25 BUN 24 creatinine 0.94 glucose 121 AST 24 ALT 30 alk phos 80 TSH 4.50 urinalysis negative IMAGING: No brain imaging available at this time. ASSESSMENT: 78 year-old man with PMhx of diabetes, HLD, HTN, hypothyroidism, bilateral cataracts, BPH, who presented to [facility] for R hip pain after hip replacement 1 week ago, consulting Neurology for AMS. Patient has had acute change in his mental status, most likely in the setting of overuse of pain medication along with R hip pain. Patient has been getting a limited number of pain meds, since yesterday, patient has gotten one dose of [place], and his mental status actually improving since late this afternoon. Patient having acute delirium. RECOMMENDATIONS: 1. Sleep hygiene (make sure patient sleeps well at night, limit RN visitations overnight) 2. Neurology will see patient again tomorrow for any improvement. 3. If patient still in-house on 01/06/19, can consider obtaining routine EEG Past Medical History Past Medical History: Diabetes Mellitus, Eye Disorder, Hyperlipidemia, Hypertension, Prostate Disorder, Thyroid Disorder Additional Past Medical History / Comment(s): Bilateral cataracts, enlarged prostate. History of Any Multi-Drug Resistant Organisms: None Reported Past Surgical History: Heart Catheterization With Stent, Joint Replacement Additional Past Surgical History / Comment(s): 3 colonoscopies, cardiac stents X2, R hip replacement 12/2018 Past Anesthesia/Blood Transfusion Reactions: No Reported Reaction, Motion Sickness Date of Last Stent Placement:: 11/08/2017 Past Psychological History: No Psychological Hx Reported Smoking Status: Never smoker Past Alcohol Use History: None Reported Past Drug Use History: None Reported - Past Family History Father Family Medical History: Cancer Medications and Allergies Home Medications Medication Instructions Recorded Confirmed Type Aspirin [Adult Low Dose Aspirin EC] 81 mg PO DAILY 12/06/14 01/02/19 History metFORMIN HCL [Glucophage] 500 mg PO TID 12/06/14 01/02/19 History Levothyroxine Sodium [Synthroid] 75 mcg PO QAM 08/05/17 01/02/19 History Losartan [Cozaar] 25 mg PO QAM 08/05/17 01/02/19 History Tamsulosin [Flomax] 0.4 mg PO DAILY 08/05/17 01/02/19 History Atorvastatin [Lipitor] 80 mg PO HS #90 tab 08/19/17 01/02/19 Rx Metoprolol Tartrate [Lopressor] 25 mg PO BID #180 tab 08/19/17 01/02/19 Rx Nitroglycerin Sl Tabs [Nitrostat] 0.4 mg SUBLINGUAL Q5M PRN #25 tab 08/19/17 01/02/19 Rx HYDROcodone/APAP 5-325MG [[place] 1 - 2 tab PO Q6HR PRN #56 tab 12/20/18 01/02/19 Rx 5-325] Sennosides [Senokot] 1 tab PO BID #60 tablet 12/20/18 01/02/19 Rx Polyethylene Glycol 3350 [Miralax] 17 gm PO DAILY #30 packet 01/01/19 01/02/19 Rx Allergies Allergy/AdvReac Type Severity Reaction Status Date / Time No Known Allergies Allergy Verified 01/02/19 16:52 Physical Examination - Vital Signs Vital Signs: Vital Signs Temp Pulse Resp BP Pulse Ox 01/04/19 13:40 98.1 F 75 15 102/63 97 01/04/19 07:36 98.2 F 73 16 160/74 95 01/04/19 00:55 98 F 80 16 176/74 94 L 01/03/19 19:37 98 F 79 16 152/74 98 Intake and Output 01/04/19 01/04/19 01/04/19 06:59 14:59 22:59 Intake Total 540 280 Output Total 200 200 Balance 540 80 -200 Intake: Oral 540 280 Output: Urine 200 200 Other: Voiding Method Urinal Urinal # Voids 1 1 # Bowel Movements 1 1 Weight 90 kg Results - Laboratory Findings CBC and BMP: 01/03/19 11:23 01/03/19 08:38 Abnormal Lab Findings: Abnormal Labs 01/02/19 01/02/19 01/02/19 16:15 16:15 16:26 RBC 3.03 L Hgb 9.4 L Hct 28.6 L Plt Count 477 H Lymphocytes # Potassium 5.2 H BUN 26 H Glucose 109 H POC Glucose (mg/dL) 118 H Total Protein Albumin 01/02/19 01/03/19 01/03/19 20:08 06:57 08:38 RBC Hgb Hct Plt Count Lymphocytes # Potassium BUN 24 H Glucose 121 H POC Glucose (mg/dL) 207 H 125 H Total Protein 5.5 L Albumin 2.9 L 01/03/19 01/03/19 01/03/19 11:23 11:37 16:51 RBC 3.05 L Hgb 9.4 L Hct 28.5 L Plt Count 496 H Lymphocytes # 0.9 L Potassium BUN Glucose POC Glucose (mg/dL) 136 H 137 H Total Protein Albumin 01/03/19 01/04/19 01/04/19 20:17 06:53 11:21 RBC Hgb Hct Plt Count Lymphocytes # Potassium BUN Glucose POC Glucose (mg/dL) 127 H 120 H 142 H Total Protein Albumin
[2019-01-04 21:05] LABS: Glucose,Whole Blood 106 mg/dL (75-99)
[2019-01-04] MEDS: ATORVASTATIN 80 MG TAB PO SCH (21:06)
[2019-01-04] MEDS: SENNOSIDES-DOCUSATE SODIUM 1 EACH TAB PO SCH (21:06)
--- NOTE | 2019-01-04 23:15 | P.PN ---
Progress Note - Text Progress Note Date: 01/04/19 Presenting complaint: confusion Interval history: Patient has undergone right total hip arthroplasty on 12/19/2018 Dr. Jean Baptiste. Patient presented a follow-up visit on January 02 for increasing pain. Patient had been getting pain medications. Now admitted with increasing confusion acting out. Pain medications can cut back. Today-patient doing somewhat better. Communicating better. Did tolerate some diet. at the bedside. Neurology consult have been done. Presentation suggestive of delirium. Review of systems: Was done for constitutional, cardiovascular, GI, pulmonary, neurological,. relevant finding as above Active Medications Acetaminophen (Tylenol Tab) 650 mg PO Q8H PRN PRN Reason: Fever and/ or MILD Pain Hydrocodone Bitart/Acetaminophen ([place] 5-325) 1 each PO Q6HR PRN PRN Reason: Moderate Pain Last Admin: 01/04/19 08:21 Dose: 1 each Documented by: Hydrocodone Bitart/Acetaminophen ([place] 5-325) 2 each PO Q6HR PRN PRN Reason: Severe Pain Last Admin: 01/02/19 18:08 Dose: 2 each Documented by: Aspirin (Aspirin) 81 mg PO DAILY [facility] Atorvastatin Calcium (Lipitor) 80 mg PO HS [facility] Last Admin: 01/04/19 21:06 Dose: 80 mg Documented by: Heparin Sodium (Porcine) (Heparin) 5,000 unit SQ Q12HR [facility] Last Admin: 01/04/19 21:06 Dose: 5,000 unit Documented by: Insulin Aspart (Novolog) 0 unit SQ ACHS [facility]; Protocol Last Admin: 01/04/19 21:02 Dose: Not Given Documented by: Levothyroxine Sodium (Synthroid) 75 mcg PO DAILY@0630 [facility] Last Admin: 01/04/19 04:35 Dose: 75 mcg Documented by: Losartan Potassium (Cozaar) 25 mg PO QAM [facility] Last Admin: 01/04/19 08:04 Dose: 25 mg Documented by: Magnesium Hydroxide (Milk Of Magnesia) 2,400 mg PO DAILY PRN PRN Reason: Constipation Metformin HCl (Glucophage) 500 mg PO AC-TID [facility] Last Admin: 01/04/19 17:33 Dose: 500 mg Documented by: Metoprolol Tartrate (Lopressor) 25 mg PO BID [facility] Last Admin: 01/04/19 21:06 Dose: 25 mg Documented by: Naloxone HCl (Narcan) 0.2 mg IV Q2M PRN PRN Reason: Opioid Reversal Nitroglycerin (Nitrostat) 0.4 mg SUBLINGUAL Q5M PRN PRN Reason: Chest Pain Polyethylene Glycol (Miralax) 17 gm PO DAILY [facility] Last Admin: 01/04/19 08:04 Dose: 17 gm Documented by: Senna/Docusate Sodium (Senokot-S) 2 each PO HS [facility] Last Admin: 01/04/19 21:06 Dose: 2 each Documented by: Tamsulosin HCl (Flomax) 0.4 mg PO DAILY [facility] Last Admin: 01/04/19 08:04 Dose: 0.4 mg Documented by: Tramadol HCl (Ultram) 50 mg PO Q6H PRN PRN Reason: Moderate Pain Physical examination: VITAL SIGNS: 98.1, 65, 15, 102/63, 97% room air GENERAL: Sitting up in a chair awake. EYES: Pupils equal. Conjunctiva normal. HEENT: External appearance of nose and ears normal, oral cavity grossly normal. NECK: JVD not raised; masses not palpable. HEART: First and second heart sounds are normal; no edema. LUNGS: Respiratory rate normal; clear to auscultation. ABDOMEN: Soft, nontender, liver spleen not palpable, no masses palpable. PSYCH: Patient is able to answer simple questionsl. NEUROLOGICAL: Cranial nerves grossly intact; no facial asymmetry, power and sensation grossly intact. INVESTIGATIONS, reviewed in the clinical context: White count 8 hemoglobin 9.4 platelets 496 potassium 4.6 creatinine 0.94 TSH 4.5 UA negative Assessment: -Probable acute delirium from pain medications, improving after they have been scheduled Back -Diabetes mellitus type 2 -Hyperlipidemia -Essential hypertension -Hypothyroid -BPH -Coronary artery with stent -Possible cognitive impairment underlying Plan: We'll try to limit the use of narcotics. Other medication due to planned accordingly. Discussed with at the bedside. Neurological workup in place. Patient will proceed tomorrow. Thank you Dr. Jean Baptiste.
[2019-01-05] MEDS: LEVOTHYROXINE 75 MCG TAB PO SCH (05:38)
[2019-01-05 07:17] LABS: Glucose,Whole Blood 117 mg/dL (75-99)
[2019-01-05] MEDS: INSULIN ASPART (NovoLOG) 100 UNIT/ML VIAL SQ SCH ×4 (07:41→20:27)
[2019-01-05 08:10] LABS: Basophils % (A) 0 %; Eosinophils # (A) 0.3 k/uL (0-0.7); Eosinophils % (A) 5 %; HCT 29.4 % (39.0-53.0); HGB 9.7 gm/dL (13.0-17.5); Lymphocytes # (A) 1.4 k/uL (1.0-4.8); Lymphocytes % (A) 19 %; MCH 30.6 pg (25.0-35.0); MCV 92.5 fL (80.0-100.0); Mean Platelet Volume 6.2; Monocytes # (A) 0.5 k/uL (0-1.0); Monocytes % (A) 7 %; Neutrophils # (A) 4.9 k/uL (1.3-7.7); Neutrophils % (A) 66 %; Platelet Count 484 k/uL (150-450); RBC 3.18 m/uL (4.30-5.90); WBC 7.3 k/uL (3.8-10.6)
[2019-01-05] MEDS: POLYETHYLENE GLYCOL 3350 17 GM POWD.PACK PO SCH (08:30)
[2019-01-05] MEDS: HEPARIN SODIUM,PORCINE 5,000 UNIT/ML 1 ML VIAL SQ SCH ×2 (08:30→21:08)
[2019-01-05] MEDS: metFORMIN 500 MG TAB PO SCH ×3 (08:30→17:12)
[2019-01-05] MEDS: ASPIRIN 81 MG PO SCH (08:30)
[2019-01-05] MEDS: LOSARTAN 25 MG TAB PO SCH (08:30)
[2019-01-05] MEDS: TAMSULOSIN 0.4 MG CAP.ER.24H PO SCH (08:30)
[2019-01-05] MEDS: METOPROLOL TARTRATE 25 MG TAB PO SCH ×2 (08:30→21:08)
--- NOTE | 2019-01-05 09:54 | P.PN ---
Subjective Progress Note Date: 01/05/19 Principal diagnosis: Status post right total hip arthroplasty on 12/19/2018. This is an 78 year-old male post right total hip arthroplasty by Dr. Marcial Jean Baptiste. He was readmitted for rehab placement due inability to take care of himself at home and increased confusion. The patient was evaluated at the bedside today. The patient is sleepy today but about to answer yes and no questions appropriately. He states his pain is controlled at this time. No new issues overnight. The patient was evaluated by neurology yesterday and acute delirium is suspected. An EEG is recommended if the patient is still here tomorrow. Objective - Vital Signs Vital signs: Vital Signs Temp 98.3 F 01/05/19 07:51 Pulse 102 H 01/05/19 07:51 Resp 16 01/05/19 07:51 BP 143/72 01/05/19 07:51 Pulse Ox 96 01/05/19 07:51 Intake & Output 01/04/19 01/05/19 01/05/19 18:59 06:59 18:59 Intake Total 480 540 Output Total 400 100 Balance 80 440 Weight 90 kg Intake: Oral 480 540 Output: Urine 400 100 Other: Voiding Method Urinal # Voids 1 1 # Bowel Movements 1 - Exam The patient does not appear in acute distress. Alert and orientated x3. Dressing is clean dry and intact. Incision appears fine with no erythema or active drainage. Calf is soft and nontender. Good foot and ankle motion without difficulty. Sensation and circulatory status is intact. - Labs CBC & Chem 7: 01/05/19 07:39 01/03/19 08:38 Labs: Abnormal Lab Results - Last 24 Hours (Table) 01/04/19 01/04/19 01/04/19 Range/Units 11:21 16:43 20:50 RBC (4.30-5.90) m/uL Hgb (13.0-17.5) gm/dL Hct (39.0-53.0) % Plt Count (150-450) k/uL POC Glucose (mg/dL) 142 H 155 H 106 H (75-99) mg/dL 01/05/19 01/05/19 Range/Units 07:02 07:39 RBC 3.18 L (4.30-5.90) m/uL Hgb 9.7 L (13.0-17.5) gm/dL Hct 29.4 L (39.0-53.0) % Plt Count 484 H (150-450) k/uL POC Glucose (mg/dL) 117 H (75-99) mg/dL Assessment and Plan (1) Frequent falls Current Visit: Yes Status: Acute Code(s): R29.6 - REPEATED FALLS SNOMED Code(s): 974500615 (2) Right hip pain Current Visit: Yes Status: Acute Code(s): M25.551 - PAIN IN RIGHT HIP SNOMED Code(s): 36179193 (3) S/P total hip arthroplasty Current Visit: No Status: Acute Code(s): Z96.649 - PRESENCE OF UNSPECIFIED ARTIFICIAL HIP JOINT SNOMED Code(s): 387139926518 Plan: 1. Continue pain control 2. Anticoagulation with Heparin. Aspirin discontinued by neurology. 3. Continue physical therapy and ambulation 4. Anticipate discharge to skilled rehab tomorrow.
[2019-01-05 12:11] LABS: Glucose,Whole Blood 183 mg/dL (75-99)
[2019-01-05 17:05] LABS: Glucose,Whole Blood 141 mg/dL (75-99)
--- NOTE | 2019-01-05 19:36 | P.PN ---
Progress Note - Text Progress Note Date: 01/05/19 SUBJECTIVE/INTERVAL EVENTS: No acute overnight events. Patient had just woken up when I came to evaluate. Patient much more quick in responding to my questions, and also more alert and oriented. Patient denies any headache, nausea, vomiting, weakness, numbness or tingling. Observed patient peeling a banana as part of his breakfast. Patient with no issues. Able to name everything I pointed to. PHYSICAL EXAMINATION: VITAL SIGNS: T 98.7 HR 72 RR 16 BP 161/75 O2 sat 96% on RA GEN.: NAD, pleasant and cooperative HEENT: NCAT, sclera without icterus NECK: Supple, no carotid bruit SKIN AND EXTREMITIES: Warm to touch, no edema NEURO: MENTAL STATUS: Patient alert and oriented to self only. Able to redirect patient to say "2019" "hospital or home" and for president, patient initially said [place], but when asked which one, he corrected himself and said "Trump." Speech fluent, able to name and repeat, following all commands readily. No right and left disorientation, neglect. Patient unable to spell "WORLD" but patient was always a poor speller, and unable to serial 7's. able to name his but difficulty remembering his grandson's name. CRANIAL NERVES II THROUGH XII: II: Pupils are equal and reactive to light symmetrically. No afferent pupillary defect. Visual liang are intact. III, IV, : No ptosis. Extraocular movements full. No nystagmus. V: Facial sensation intact from V1-3. VII. No clear facial asymmetry. VIII: Hearing intact to finger rub bilaterally. IX, X: Symmetric palate elevation. XI: Shoulder shrug intact. XII: Tongue midline without fasciculation or atrophy. MOTOR: Normal bulk. Increased tone in all 4 extremities. No pronator drift or tremor. Strength is 5/5 in b/l UE. Unable to move his RLE due to R hip pain, but patient able to dorsiflex/plantar flex with R foot. LLE 4+/5 strength. SENSORY: Slightly decreased to LT in LUE. Patient states that it's been that way since his polio? Otherwise, legs are intact to light touch bilaterally. REFLEXES: 2+ throughout. Toes are downgoing. COORDINATION: Finger to nose intact. No dysmetria. GAIT: deferred due to R hip pain. DIAGNOSTIC TESTING: LABORATORY: 01/03/19: WBC 8.0 hemoglobin 9.4 platelets 496 sodium 138 potassium 4.6 chloride 106 bicarb 25 BUN 24 creatinine 0.94 glucose 121 AST 24 ALT 30 alk phos 80 TSH 4.50 urinalysis negative IMAGING: No brain imaging available at this time. ASSESSMENT: 78 year-old man with PMhx of diabetes, HLD, HTN, hypothyroidism, bilateral cataracts, BPH, who presented to [facility] for R hip pain after hip replacement 1 week ago, consulting Neurology for AMS. Patient has had acute change in his mental status, most likely in the setting of overuse of pain medication along with R hip pain. Patient has been getting a limited number of pain meds, since yesterday, patient has gotten one dose of [place], and his mental status actually improving since late this afternoon. Patient having acute delirium. Today, patient with much improvement in his mental status. RECOMMENDATIONS: 1. Sleep hygiene (make sure patient sleeps well at night, limit RN visitations overnight) 2. Neurology will sign off at this time. No need for EEG. Patient's altered mental status was metabolic encepahlopathy in the setting of multiple pain medication use 3. Limit use of pain meds. Patient has only gotten one dose of [place] since yesterday morning.
[2019-01-05 20:14] LABS: Glucose,Whole Blood 115 mg/dL (75-99)
[2019-01-05] MEDS: SENNOSIDES-DOCUSATE SODIUM 1 EACH TAB PO SCH (21:08)
[2019-01-05] MEDS: ATORVASTATIN 80 MG TAB PO SCH (21:08)
--- NOTE | 2019-01-05 22:13 | P.PN ---
Progress Note - Text Progress Note Date: 01/05/19 Presenting complaint: confusion Interval history: Patient has undergone right total hip arthroplasty on 12/19/2018 Dr. Jean Baptiste. Patient presented a follow-up visit on January 02 for increasing pain. Patient had been getting pain medications. Now admitted with increasing confusion acting out. Pain medications can cut back. Today-patient did receive a dose of [place] just after 8:00 this morning. He was quite a bit sleepy during the daytime. He did eat portions of his meals. Sleepy most of the time. Review of systems: Attempted for constitutional, cardiovascular, GI, pulmonary, neurological,. relevant finding as above Active Medications Acetaminophen (Tylenol Tab) 650 mg PO Q8H PRN PRN Reason: Fever and/ or MILD Pain Aspirin (Aspirin) 81 mg PO DAILY [facility] Last Admin: 01/05/19 08:30 Dose: 81 mg Documented by: Atorvastatin Calcium (Lipitor) 80 mg PO HS [facility] Last Admin: 01/05/19 21:08 Dose: 80 mg Documented by: Heparin Sodium (Porcine) (Heparin) 5,000 unit SQ Q12HR [facility] Last Admin: 01/05/19 21:08 Dose: 5,000 unit Documented by: Insulin Aspart (Novolog) 0 unit SQ ACHS [facility]; Protocol Last Admin: 01/05/19 20:27 Dose: Not Given Documented by: Levothyroxine Sodium (Synthroid) 75 mcg PO DAILY@0630 [facility] Last Admin: 01/05/19 05:38 Dose: 75 mcg Documented by: Losartan Potassium (Cozaar) 25 mg PO QAM [facility] Last Admin: 01/05/19 08:30 Dose: 25 mg Documented by: Magnesium Hydroxide (Milk Of Magnesia) 2,400 mg PO DAILY PRN PRN Reason: Constipation Metformin HCl (Glucophage) 500 mg PO AC-TID [facility] Last Admin: 01/05/19 17:12 Dose: 500 mg Documented by: Metoprolol Tartrate (Lopressor) 25 mg PO BID [facility] Last Admin: 01/05/19 21:08 Dose: 25 mg Documented by: Naloxone HCl (Narcan) 0.2 mg IV Q2M PRN PRN Reason: Opioid Reversal Nitroglycerin (Nitrostat) 0.4 mg SUBLINGUAL Q5M PRN PRN Reason: Chest Pain Polyethylene Glycol (Miralax) 17 gm PO DAILY [facility] Last Admin: 01/05/19 08:30 Dose: 17 gm Documented by: Senna/Docusate Sodium (Senokot-S) 2 each PO HS [facility] Last Admin: 01/05/19 21:08 Dose: 2 each Documented by: Tamsulosin HCl (Flomax) 0.4 mg PO DAILY [facility] Last Admin: 01/05/19 08:30 Dose: 0.4 mg Documented by: Tramadol HCl (Ultram) 50 mg PO Q6H PRN PRN Reason: Moderate Pain Physical examination: VITAL SIGNS: 98.3, 74, 16, 128/70, 95% room air GENERAL: Laying in bed, sleepy but arousable EYES: Pupils equal. Conjunctiva normal. HEENT: External appearance of nose and ears normal, oral cavity grossly normal. NECK: JVD not raised; masses not palpable. HEART: First and second heart sounds are normal; no edema. LUNGS: Respiratory rate normal; clear to auscultation. ABDOMEN: Soft, nontender, liver spleen not palpable, no masses palpable. PSYCH: The sleepy but arousable. NEUROLOGICAL: Cranial nerves grossly intact; no facial asymmetry, power and sensation grossly intact. INVESTIGATIONS, reviewed in the clinical context: White count 7.3 hemoglobin 9.7 platelets 484 Previous testing White count 8 hemoglobin 9.4 platelets 496 potassium 4.6 creatinine 0.94 TSH 4.5 UA negative Assessment: -Probable acute delirium from pain medications, -Diabetes mellitus type 2 -Hyperlipidemia -Essential hypertension -Hypothyroid -BPH -Coronary artery with stent -Possible cognitive impairment underlying -Recent right hip arthroplasty Plan: . Patient's [place] is being discontinued. Patient is already on ultrasound that can be used when necessary. Neurology is following. Thank you Dr. Jean Baptiste.
[2019-01-06] MEDS: LEVOTHYROXINE 75 MCG TAB PO SCH (06:24)
[2019-01-06 07:19] LABS: Glucose,Whole Blood 106 mg/dL (75-99)
[2019-01-06] MEDS: INSULIN ASPART (NovoLOG) 100 UNIT/ML VIAL SQ SCH ×2 (07:25→13:22)
[2019-01-06 08:08] VITALS: RESP 12
--- NOTE | 2019-01-06 08:21 | P.DS ---
Providers Date of admission: 01/02/19 15:08 Expected date of discharge: 01/06/19 Attending physician: Marcial Jean Baptiste Consults: 01/02/19 15:12 Consult Physician Routine Consulting Provider: Serafin Arreola Consult Reason/Comments: medical management, ECF placement. Do you want consulting provider notified?: Yes 01/04/19 10:20 Consult Physician Routine Consulting Provider: Flora Wilson Consult Reason/Comments: Evaluate for dementia Do you want consulting provider notified?: Yes Primary care physician: Stated None - Discharge Diagnosis(es) (1) Frequent falls Current Visit: Yes Status: Acute (2) Right hip pain Current Visit: Yes Status: Acute (3) S/P total hip arthroplasty Current Visit: No Status: Acute Hospital Course: This is an 78-year-old male who was admitted for rehab placement after having difficulty with mobilization at home following his right total hip arthroplasty on 12/19/2018. Patient was admitted to [facility] on 01/02/2019. Ted coulter was evaluated by neurology during his stay due to suspicion for altered mental status and this was determined to be secondary to pain medication. Labs and vital signs are stable on day of discharge. On day of discharge the patient's hip incision is healing well. There is minimal erythema. There is no drainage noted at this time. There is minimal soft tissue swelling to the hip and thigh. Patient has full foot and ankle motion without difficulty or pain. Calf is soft and nontender to palpation. Neurovascular status to the right lower extremity is intact. Patient is discharged to rehab in good condition. Opioid start talking form is reviewed and signed at patient bedside. Please see med rec for accurate list of home medications. Plan - Discharge Summary Discharge Rx Participant: No New Discharge Prescriptions: New Acetaminophen [Acetaminophen 8 Hour] 650 mg PO Q8H PRN #30 tablet.er PRN Reason: Pain Aspirin 325 mg PO BID #28 tab traMADol HCl [Ultram] 50 mg PO Q6H PRN #30 tab PRN Reason: Pain Sennosides [Senokot] 1 tab PO BID #60 tablet No Action metFORMIN HCL [Glucophage] 500 mg PO TID Aspirin [Adult Low Dose Aspirin EC] 81 mg PO DAILY Tamsulosin [Flomax] 0.4 mg PO DAILY Losartan [Cozaar] 25 mg PO QAM Levothyroxine Sodium [Synthroid] 75 mcg PO QAM Atorvastatin [Lipitor] 80 mg PO HS #90 tab Metoprolol Tartrate [Lopressor] 25 mg PO BID #180 tab Nitroglycerin Sl Tabs [Nitrostat] 0.4 mg SUBLINGUAL Q5M PRN #25 tab PRN Reason: Chest Pain HYDROcodone/APAP 5-325MG [[place] 5-325] 1 - 2 tab PO Q6HR PRN #56 tab PRN Reason: Pain Sennosides [Senokot] 1 tab PO BID #60 tablet Polyethylene Glycol 3350 [Miralax] 17 gm PO DAILY #30 packet Discharge Medication List Aspirin [Adult Low Dose Aspirin EC] 81 mg PO DAILY 12/06/14 [History] metFORMIN HCL [Glucophage] 500 mg PO TID 12/06/14 [History] Levothyroxine Sodium [Synthroid] 75 mcg PO QAM 08/05/17 [History] Losartan [Cozaar] 25 mg PO QAM 08/05/17 [History] Tamsulosin [Flomax] 0.4 mg PO DAILY 08/05/17 [History] Atorvastatin [Lipitor] 80 mg PO HS #90 tab 08/19/17 [Rx] Metoprolol Tartrate [Lopressor] 25 mg PO BID #180 tab 08/19/17 [Rx] Nitroglycerin Sl Tabs [Nitrostat] 0.4 mg SUBLINGUAL Q5M PRN #25 tab 08/19/17 [Rx] HYDROcodone/APAP 5-325MG [[place] 5-325] 1 - 2 tab PO Q6HR PRN #56 tab 12/20/18 [Rx] Sennosides [Senokot] 1 tab PO BID #60 tablet 12/20/18 [Rx] Polyethylene Glycol 3350 [Miralax] 17 gm PO DAILY #30 packet 01/01/19 [Rx] Acetaminophen [Acetaminophen 8 Hour] 650 mg PO Q8H PRN #30 tablet.er 01/06/19 [Rx] Aspirin 325 mg PO BID #28 tab 01/06/19 [Rx] Sennosides [Senokot] 1 tab PO BID #60 tablet 01/06/19 [Rx] traMADol HCl [Ultram] 50 mg PO Q6H PRN #30 tab 01/06/19 [Rx] Follow up Appointment(s)/Referral(s): Marcial Jean Baptiste DO [Doctor of Osteopathic Medicine] - 2 Weeks Activity/Diet/Wound Care/Special Instructions: Weightbearing as tolerated with a walker. Keep incision clean and dry. Recommend use of compression stockings daily for at least 2 weeks during the day to help prevent swelling and blood clots. May remove at night before sleeping. Please follow-up with [facility] in 2 weeks and call with any questions or concerns, . Discharge Disposition: TRANSFER TO SNF/ECF
[2019-01-06] MEDS: METOPROLOL TARTRATE 25 MG TAB PO SCH (08:27)
[2019-01-06] MEDS: TAMSULOSIN 0.4 MG CAP.ER.24H PO SCH (08:27)
[2019-01-06] MEDS: POLYETHYLENE GLYCOL 3350 17 GM POWD.PACK PO SCH (08:27)
[2019-01-06] MEDS: ASPIRIN 81 MG PO SCH (08:27)
[2019-01-06] MEDS: HEPARIN SODIUM,PORCINE 5,000 UNIT/ML 1 ML VIAL SQ SCH (08:27)
[2019-01-06] MEDS: metFORMIN 500 MG TAB PO SCH ×2 (08:27→13:26)
[2019-01-06] MEDS: LOSARTAN 25 MG TAB PO SCH (08:27)
[2019-01-06 11:32] LABS: Hemoglobin A1C 6.7 % (4.0-6.0)
[2019-01-06 12:03] LABS: Glucose,Whole Blood 120 mg/dL (75-99)
[2019-01-06 14:58] VITALS: BP 116/65; PULSE 68; TEMP 97.8
--- NOTE | 2019-01-07 22:18 | P.PN ---
Progress Note - Text Progress Note Date: 01/06/19 Presenting complaint: confusion Interval history: Patient has undergone right total hip arthroplasty on 12/19/2018 Dr. Jean Baptiste. Patient presented a follow-up visit on January 02 for increasing pain. Patient had been getting pain medications. Now admitted with increasing confusion acting out. Pain medications can cut back. [place] discontinued. Today-patient did much better. Discussed with the . Discussed keep the pain medications are limited as possible. Patient overall doing better. Review of systems: Attempted for constitutional, cardiovascular, GI, pulmonary, neurological,. relevant finding as above current medications are reviewed and today's electronic records Physical examination: VITAL SIGNS: 98.1, 63, 12, 11 6/65, 97% room air GENERAL:sitting up in a chair, more awake EYES: Pupils equal. Conjunctiva normal. HEENT: External appearance of nose and ears normal, oral cavity grossly normal. NECK: JVD not raised; masses not palpable. HEART: First and second heart sounds are normal; no edema. LUNGS: Respiratory rate normal; clear to auscultation. ABDOMEN: Soft, nontender, liver spleen not palpable, no masses palpable. PSYCH: answering simple questions. NEUROLOGICAL: Cranial nerves grossly intact; no facial asymmetry, power and sensation grossly intact. INVESTIGATIONS, reviewed in the clinical context: Accu-Cheks noted White count 7.3 hemoglobin 9.7 platelets 484 TSH 4.5 UA negative Assessment: -acute delirium from pain medications, improved -Diabetes mellitus type 2 -Hyperlipidemia -Essential hypertension -Hypothyroid -BPH -Coronary artery with stent -Possible cognitive impairment underlying -Recent right hip arthroplasty Plan: stable. Continue current medication treatment plan. Care discussed the . Thank you Dr. Jean Baptiste.
== END 2019-01-06 15:18 | DRG 556 ==
LOC: 4SSUR 15:08
PROVIDERS: ADMIT Orthopaedic Surgery; ATTEND Orthopaedic Surgery
DX: M25.551 Pain in right hip (principal); R41.0 Disorientation, unspecified; T40.605A Adverse effect of unspecified narcotics, initial encounter; E87.5 Hyperkalemia; D63.8 Anemia in other chronic diseases classified elsewhere; E11.9 Type 2 diabetes mellitus without complications; E78.5 Hyperlipidemia, unspecified; E03.9 Hypothyroidism, unspecified; R26.9 Unspecified abnormalities of gait and mobility; I10 Essential (primary) hypertension; M19.90 Unspecified osteoarthritis, unspecified site; R29.6 Repeated falls; K59.00 Constipation, unspecified; N40.0 Benign prostatic hyperplasia without lower urinary tract symptoms; I25.10 Atherosclerotic heart disease of native coronary artery without angina pectoris; H26.9 Unspecified cataract; Z79.82 Long term (current) use of aspirin; Z79.890 Hormone replacement therapy; Z79.84 Long term (current) use of oral hypoglycemic drugs; Z79.899 Other long term (current) drug therapy; Z95.5 Presence of coronary angioplasty implant and graft; Z96.641 Presence of right artificial hip joint; Z98.890 Other specified postprocedural states; Z80.9 Family history of malignant neoplasm, unspecified
CPT/HCPCS: 71045; 80048; 80053; 81003; 83036; 84443; 85025; 85610

== ENCOUNTER → 2019-10-19 | Outpatient (CLI) | payer MEDICARE ==
[2019-10-19 15:34] LABS: LDL Cholesterol,Calculated 51.8 mg/dL (0.0-131.0); VLDL Calculation 18.2 mg/dL (5.00-40.00)
== END | disposition home or self-care (01) ==
LOC: LABWHC1 10:11
PROVIDERS: ATTEND Internal Medicine Cardiovascular Disease
DX: E78.2 Mixed hyperlipidemia (principal)
CPT/HCPCS: 36415; 80061; 84450; 84460

== ENCOUNTER → 2020-06-05 | Outpatient (CLI) | payer MEDICARE ==
[2020-06-05 21:47] LABS: Chol/HDL Ratio 3.53
== END | disposition home or self-care (01) ==
LOC: LABWHC1 10:01
PROVIDERS: ATTEND Internal Medicine Interventional Cardiology
DX: E78.5 Hyperlipidemia, unspecified (principal); I10 Essential (primary) hypertension; I25.10 Atherosclerotic heart disease of native coronary artery without angina pectoris
CPT/HCPCS: 36415; 80061; 84450; 84460

== ENCOUNTER → 2021-06-19 | Outpatient (CLI) | payer MEDICARE ==
[2021-06-19 17:47] LABS: HCT 31.1 % (39.6-50.0); HGB 9.7 g/dL (13.0-17.0); MCH 28.7 pg (27.0-32.0); MCHC 31.2 g/dL (32.0-37.0); Mean Platelet Volume 10.1 fL (9.5-12.2); NRBC Per 100 WBC 0 /100 WBCS (0.0-0.0); Platelet Count 260 X 10*3/uL (140-440); RBC 3.38 X 10*6/uL (4.40-5.60); RDW 14.3 % (11.5-14.5); WBC 7.71 X 10*3/uL (4.50-10.00)
[2021-06-19 18:36] LABS: ALT 11 U/L (10-49); AST 23 U/L (14-35); African American GFR (CKD) 78.4 (60.0-200.0); BUN/Creat Ratio 19.51 Ratio (12.00-20.00); Blood Urea Nitrogen 19.9 mg/dL (9.0-27.0); Calcium 9.1 mg/dL (8.7-10.3); Carbon Dioxide 21.3 mmol/L (20.0-27.5); Chloride 105 mmol/L (96-109); Chol/HDL Ratio 2.67 Ratio; Glucose 106 mg/dL (70-110); LDL Cholesterol,Calculated 51.7 mg/dL (0.0-131.0); Non-African American GFR(CKD) 67.7 (60.0-200.0); Potassium 4.7 mmol/L (3.5-5.5); Sodium 138 mmol/L (135-145); VLDL Calculation 12.14 mg/dL (5.00-40.00)
== END | disposition home or self-care (01) ==
LOC: LABWHC1 11:11
PROVIDERS: ATTEND Internal Medicine Cardiovascular Disease
DX: E78.2 Mixed hyperlipidemia (principal)
CPT/HCPCS: 36415; 80048; 80061; 84443; 84450; 84460; 85027

== ENCOUNTER 2022-04-23 05:05 | Inpatient (IN) | payer MEDICARE ==
--- NOTE | 2022-04-23 06:33 | ED ---
Chest Pain HPI - General Source: patient, family, RN notes reviewed Mode of arrival: wheelchair <Marcial Magaña - Last Filed: 04/23/22 06:32> - General Source: old records reviewed <Junior Dasilva - Last Filed: 04/23/22 08:52> - General Chief Complaint: Chest Pain Stated Complaint: Chest Pain Time Seen by Provider: 04/23/22 06:32 - History of Present Illness Initial Comments: 81-year-old male presents emergency Department chief complaint of epigastric, chest discomfort. Patient states started last night. Patient states she's had nausea and vomiting. He does complain of some heartburn. Patient states pain radiates up and back. Patient states she has a bad back that's probably his discomfort in his back. Patient denies any change in bowel habits. Patient's had 2 prior cardiac stents. (Marcial Magaña) Patient is also had productive cough which began yesterday and has progressed throughout his initial stay in the emergency department. The history is limited and obtained from both the patient and his who is bedside. Patient states his pain is epigastric and denies current chest pain. (Junior Dasilva) - Related Data Home Medications Medication Instructions Recorded Confirmed metFORMIN HCL [Glucophage] 500 mg PO TID 12/06/14 01/02/19 Levothyroxine Sodium [Synthroid] 75 mcg PO QAM 08/05/17 01/02/19 Losartan [Cozaar] 25 mg PO QAM 08/05/17 01/02/19 Tamsulosin [Flomax] 0.4 mg PO DAILY 08/05/17 01/02/19 Previous Rx's Medication Instructions Recorded Atorvastatin [Lipitor] 80 mg PO HS #90 tab 08/19/17 Metoprolol Tartrate [Lopressor] 25 mg PO BID #180 tab 08/19/17 Nitroglycerin Sl Tabs [Nitrostat] 0.4 mg SUBLINGUAL Q5M PRN #25 tab 08/19/17 Sennosides [Senokot] 1 tab PO BID #60 tablet 12/20/18 polyethylene glycoL 3350 [Miralax] 17 gm PO DAILY #30 packet 01/01/19 Acetaminophen [Acetaminophen 8 650 mg PO Q8H PRN #30 tablet.er 01/06/19 Hour] Aspirin 325 mg PO BID #28 tab 01/06/19 Sennosides [Senokot] 1 tab PO BID #60 tablet 01/06/19 traMADol HCl [Ultram] 50 mg PO Q6H PRN #30 tab 01/06/19 Allergies Allergy/AdvReac Type Severity Reaction Status Date / Time No Known Allergies Allergy Verified 04/23/22 05:20 Review of Systems ROS Other: All systems not noted in ROS Statement are negative. <Marcial Magaña - Last Filed: 04/23/22 06:32> ROS Other: All systems not noted in ROS Statement are negative. <Junior Dasilva - Last Filed: 04/23/22 08:52> ROS Statement: Those systems with pertinent positive or pertinent negative responses have been documented in the HPI. Past Medical History Past Medical History: Diabetes Mellitus, Eye Disorder, Hyperlipidemia, Hypertension, Prostate Disorder, Thyroid Disorder Additional Past Medical History / Comment(s): Bilateral cataracts, enlarged prostate. History of Any Multi-Drug Resistant Organisms: None Reported Past Surgical History: Heart Catheterization With Stent, Joint Replacement Additional Past Surgical History / Comment(s): 3 colonoscopies, cardiac stents X2, R hip replacement 12/2018 Past Anesthesia/Blood Transfusion Reactions: No Reported Reaction, Motion Sickness Date of Last Stent Placement:: 11/08/2017 Past Psychological History: No Psychological Hx Reported Past Alcohol Use History: None Reported Past Drug Use History: None Reported - Past Family History Father Family Medical History: Cancer <Marcial Magaña - Last Filed: 04/23/22 06:32> General Exam <Marcial Magaña - Last Filed: 04/23/22 06:32> General appearance: alert, in no apparent distress Head exam: Present: atraumatic, normocephalic Eye exam: Present: normal appearance, PERRL ENT exam: Present: mucous membranes dry Neck exam: Present: normal inspection Respiratory exam: Absent: respiratory distress, wheezes Cardiovascular Exam: Present: regular rate, normal rhythm GI/Abdominal exam: Present: soft. Absent: distended, tenderness, guarding, rebound Extremities exam: Present: normal inspection, normal capillary refill. Absent: pedal edema Neurological exam: Present: alert, oriented X3, CN II-XII intact. Absent: motor sensory deficit Psychiatric exam: Present: normal affect, normal mood Skin exam: Present: warm, dry, intact. Absent: cyanosis, diaphoretic <Junior Dasilva N - Last Filed: 04/23/22 08:52> - General Exam Comments Initial Comments: Visual Physical Exam Vital signs reviewed General: Well-appearing, nontoxic, no acute distress. Head: Normocephalic, atraumatic Eyes: PERRLA, EOMI ENT: Airway patent Chest: Nonlabored breathing Skin: No visual rash, normal skin tone Neuro: Alert and oriented 3 Musculoskeletal: No gross abnormalities (Marcial Magaña) Course Vital Signs 04/23/22 05:14 Temperature 97.5 F L Pulse Rate 83 Respiratory 16 Rate Blood Pressure 170/98 O2 Sat by Pulse 93 L Oximetry Chest Pain [facility] <Junior Dasilva N - Last Filed: 04/23/22 08:52> - [facility] EKG: Sinus rhythm rate of 84, [place] interval 166, QRS duration 82, QTC 418, no ST segment elevation. EKG was interpreted by myself. Was pt. sent in by a medical professional or institution (Dr. PA, INSIDE SALES ASSISTANT, urgent care, hospital, or snf...) When possible be specific @ -[No] Did you speak to anyone other than the patient for history (EMS, parent, family, police, friend...)? What history was obtained from this source @ -ES: History is obtained predominantly from the patient's Did you review nursing and triage notes (agree or disagree)? Why? @ -[I reviewed and agree with nursing and triage notes] Were old charts reviewed (outside hosp., previous admission, EMS record, old EKG, old radiological studies, urgent care reports/EKG's, snf records)? Report findings @ -[No old charts were reviewed] Differential Diagnosis (chest pain, altered mental status, abdominal pain women, abdominal pain men, vaginal bleeding, weakness, fever, dyspnea, syncope, headache, dizziness, GI bleed, back pain, seizure, CVA, palpatations, mental health, musculoskeletal)? @ -Differential Chest Pain: Stable Angina, Unstable Angina, STEMI, NSTEMI Aortic Dissection, Pneumothorax, Musculoskeletal, Esophageal Spasm GERD, Cholecystitis, Pancreatitis, Zoster, this is not meant to be an all-inclusive list. EKG interpreted by me (3pts min.). @ -[As above] X-rays interpreted by me (1pt min.). @ -I reviewed the chest x-ray and agree with the radiologist findings of left lower lobe infiltrate CT interpreted by me (1pt min.). @ -[None done] U/S interpreted by me (1pt. min.). @ -[None done] What testing was considered but not performed or refused? (CT, X-rays, U/S, labs)? Why? @ -[None] What meds were considered but not given or refused? Why? @ -[None] Did you discuss the management of the patient with other professionals (richi sebastian i.e. , PA, INSIDE SALES ASSISTANT, lab, RT, psych nurse, child protective services social worker, ranch manager, teacher, transit authority police officer, welfare case worker)? Give summary @ -Case discussed with Dr. Pavon who will admit the patient Was smoking cessation discussed for >3mins.? @ -[No] Was critical care preformed (if so, how long)? @ -[No] Were there social determinants of health that impacted care today? How? (Homelessness, low income, unemployed, alcoholism, drug addiction, transportation, low edu. Level, literacy, decrease access to med. care, care home, rehab)? @ -[No] Was there de-escalation of care discussed even if they declined (Discuss DNR or withdrawal of care, Hospice)? DNR status @ -[No] What co-morbidities impacted this encounter? (DM, HTN, Smoking, COPD, CAD, Cancer, CVA, ARF, Chemo, Hep., AIDS, mental health diagnosis, sleep apnea, morbid obesity)? @ -CAD, diabetes Was patient admitted / discharged? Hospital course, mention meds given and route, prescriptions, significant lab abnormalities, going to OR and other pertinent info. @ -Patient presenting with vague epigastric discomfort as well as productive cough. The patient has left lower lobe infiltrate on x-ray which is treated with IV antibiotics. He is afebrile and minimally symptomatic at the time my evaluation. He has no central chest pain. His EKG is nonischemic and troponin is negative. He has a normal white blood cell count hemoglobin is mildly anemic at 12. The patient will be admitted given his age and comorbidities. He will be admitted to internal medicine at this time. Undiagnosed new problem with uncertain prognosis? @ -[No] Drug Therapy requiring intensive monitoring for toxicity (Heparin, Nitro, Insulin, Cardizem)? @ -[No] Were any procedures done? @ -[No] Diagnosis/symptom? @ -Pneumonia Acute, or Chronic, or Acute on Chronic? @ -Acute Uncomplicated (without systemic symptoms) or Complicated (systemic symptoms)? @ -[Complicated] Side effects of treatment? @ -[No] Exacerbation, Progression, or Severe Exacerbation? @ -[No] Poses a threat to life or bodily function? How? (Chest pain, [place], AR, pneumonia, PE, COPD, DKA, ARF, appy, cholecystitis, CVA, Diverticulitis, Homicidal, Suicidal, threat to staff... and all critical care pts) @ -[Yes, concern for progression of pneumonia with end organ dysfunction, sepsis, and .] (Junior Dasilva) Disposition <Marcial Magaña - Last Filed: 04/23/22 06:32> Is patient prescribed a controlled substance at d/c from ED?: No Time of Disposition: 08:52 <Junior Dasilva - Last Filed: 04/23/22 08:52> Clinical Impression: Epigastric pain, Pneumonia Disposition: ADMITTED IP TO THIS [facility] Condition: Stable Referrals: None,Stated [REFERRING] - 1-2 days
[2022-04-23 06:36] LABS: Basophils % (A) 0 %; Eosinophils % (A) 0 %; HCT 38.8 % (39.0-53.0); HGB 12.9 gm/dL (13.0-17.5); Lymphocytes # (A) 0.4 k/uL (1.0-4.8); Lymphocytes % (A) 4 %; MCH 30.8 pg (25.0-35.0); MCHC 33.3 g/dL (31.0-37.0); MCV 92.4 fL (80.0-100.0); Mean Platelet Volume 7.5; Monocytes # (A) 0.6 k/uL (0-1.0); Monocytes % (A) 6 %; Neutrophils % (A) 89 %; Platelet Count 197 k/uL (150-450); RDW 13.6 % (11.5-15.5); WBC 10.1 k/uL (3.8-10.6)
[2022-04-23 06:38] LABS: INR 1.1 (<1.2); Prothrombin Time 11.1 sec (9.0-12.0)
[2022-04-23 06:53] LABS: Partial Thromboplastin Time 20.1 sec (22.0-30.0)
--- NOTE | 2022-04-23 06:53 | XR ---
EXAMINATION TYPE: XR chest 2V DATE OF EXAM: 04/23/2022 COMPARISON: Prior chest x-ray January 02, 2019. HISTORY: Chest pain TECHNIQUE: Frontal and lateral views of the chest are obtained. FINDINGS: There is patchy left basilar opacity is redemonstrated. Right lung remains clear. The card iac silhouette size is less prominent and within normal limits. The osseous structures are intact. IMPRESSION: Left basilar opacity could reflect acute infiltrate and/or atelectasis. Correlate clinic ally.
[2022-04-23] MEDS ORDERED: SODIUM CHLORIDE 0.9% 500 ML 500 ML IV ONE (07:57)
[2022-04-23] MEDS ORDERED: AZITHROMYCIN 500 MG in SODIUM CHLORIDE 0.9% 250 ML IVPB STA (07:58)
[2022-04-23] MEDS ORDERED: cefTRIAXone IN SWFI 1,000 MG/10 ML SYRINGE IVP STA (07:58)
[2022-04-23] MEDS ORDERED: SODIUM CHLORIDE 0.9% 1,000 ML IV SCH (08:00)
[2022-04-23 08:27] LABS: Albumin 4.2 g/dL (3.5-5.0); Calcium 9.2 mg/dL (8.4-10.2); Magnesium 1.4 mg/dL (1.6-2.3); Potassium 4.8 mmol/L (3.5-5.1); Total Bilirubin 0.7 mg/dL (0.2-1.3); Total Protein 7.5 g/dL (6.3-8.2)
[2022-04-23] MEDS ORDERED: ACETAMINOPHEN TAB 325 MG TAB PO PRN (08:53)
[2022-04-23] MEDS ORDERED: NALOXONE 0.4 MG/ML 1 ML VIAL IV PRN (08:53)
[2022-04-23] MEDS ORDERED: FUROSEMIDE 10 MG/ML 4 ML VIAL IV STA (09:08)
[2022-04-23] MEDS ORDERED: Magnesium Replacement Protocol 1 EACH MISC MISCELLANE PRN (09:11)
--- NOTE | 2022-04-23 09:14 | P.HPIM ---
History of Present Illness This is a pleasant 81 years old male with past medical history of diabetes mellitus, hypothyroidism, hypertension, hyperlipidemia, benign prostatic hypertrophy, coronary artery disease status post stents 2 His is at bedside. Is a little bit weak and lethargic and slow to respond but oriented to time place and person Patient presents because of dyspnea and coughing with clear phlegm, for a few days duration associated with some epigastric abdominal pain. Patient has been having a little nausea but no diarrhea. No current abdominal pain or tenderness. Increased frequency of urination but no dysuria or urgency No headache or weakness or numbness, no dizziness. He follows up with Dr. 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 Troponin is negative less than 0.012. Lipase normal. EKG showing normal sinus rhythm at [address]-T changes Chest x-ray: Left basilar opacity could reflect acute infiltrate and/or atelectasis. Correlate clinically Review of Systems Review of systems CONSTITUTIONAL: No fever, no malaise, no fatigue. HEENT: No recent visual problems or hearing problems. Denied any sore throat. CARDIOVASCULAR: No orthopnea, PND, no palpitations, no syncope. PULMONARY: No chest wall tenderness, no hemoptysis. GASTROINTESTINAL: No diarrhea, no nausea, no vomiting, no abdominal pain. Normoactive bowel sounds. NEUROLOGICAL: No headaches, no weakness, no numbness. HEMATOLOGICAL: Denies any bleeding or petechiae. GENITOURINARY: Denies any burning micturition, frequency, or urgency. MUSCULOSKELETAL/RHEUMATOLOGICAL: Denies any joint pain, swelling, or any muscle pain. ENDOCRINE: Denies any polyuria or polydipsia. Past Medical History Past Medical History: Diabetes Mellitus, Eye Disorder, Hyperlipidemia, Hypertension, Prostate Disorder, Thyroid Disorder Additional Past Medical History / Comment(s): Bilateral cataracts, enlarged prostate. History of Any Multi-Drug Resistant Organisms: None Reported Past Surgical History: Heart Catheterization With Stent, Joint Replacement Additional Past Surgical History / Comment(s): 3 colonoscopies, cardiac stents X2, R hip replacement 12/2018 Past Anesthesia/Blood Transfusion Reactions: No Reported Reaction, Motion Sickness Date of Last Stent Placement:: 11/08/2017 Past Psychological History: No Psychological Hx Reported Past Alcohol Use History: None Reported Past Drug Use History: None Reported - Past Family History Father Family Medical History: Cancer Medications and Allergies Home Medications Medication Instructions Recorded Confirmed Type metFORMIN HCL [Glucophage] 500 mg PO TID 12/06/14 01/02/19 History Levothyroxine Sodium [Synthroid] 75 mcg PO QAM 08/05/17 01/02/19 History Losartan [Cozaar] 25 mg PO QAM 08/05/17 01/02/19 History Tamsulosin [Flomax] 0.4 mg PO DAILY 08/05/17 01/02/19 History Atorvastatin [Lipitor] 80 mg PO HS #90 tab 08/19/17 01/02/19 Rx Metoprolol Tartrate [Lopressor] 25 mg PO BID #180 tab 08/19/17 01/02/19 Rx Nitroglycerin Sl Tabs [Nitrostat] 0.4 mg SUBLINGUAL Q5M PRN #25 tab 08/19/17 01/02/19 Rx Sennosides [Senokot] 1 tab PO BID #60 tablet 12/20/18 01/02/19 Rx polyethylene glycoL 3350 [Miralax] 17 gm PO DAILY #30 packet 01/01/19 01/02/19 Rx Acetaminophen [Acetaminophen 8 650 mg PO Q8H PRN #30 tablet.er 01/06/19 Rx Hour] Aspirin 325 mg PO BID #28 tab 01/06/19 Rx Sennosides [Senokot] 1 tab PO BID #60 tablet 01/06/19 Rx traMADol HCl [Ultram] 50 mg PO Q6H PRN #30 tab 01/06/19 Rx Allergies Allergy/AdvReac Type Severity Reaction Status Date / Time No Known Allergies Allergy Verified 04/23/22 05:20 Physical Exam Vitals: Vital Signs Temp Pulse Resp BP Pulse Ox 04/23/22 05:14 97.5 F L 83 16 170/98 93 L Intake and Output 04/22/22 04/23/22 04/23/22 22:59 06:59 14:59 Other: Weight 83.915 kg GENERAL: The patient is alert and oriented x3, not in any acute distress. Well developed, well nourished. HEENT: Pupils are round and equally reacting to light. EOMI. No scleral icterus. No conjunctival pallor. Normocephalic, atraumatic. No pharyngeal erythema. No thyromegaly. CARDIOVASCULAR: S1 and S2 present. No murmurs, rubs, or gallops. -PULMONARY: Chest is clear to auscultation, no wheezing or crackles. Mildly tachypneic with coughing and clear phlegm ABDOMEN: Soft, nontender, nondistended, normoactive bowel sounds. No palpable organomegaly. MUSCULOSKELETAL: No joint swelling or deformity. -EXTREMITIES: No cyanosis, clubbing, , 2+ bilateral pitting leg edema. NEUROLOGICAL: Gross neurological examination did not reveal any focal deficits. SKIN: No rashes. no petechiae. Results CBC & Chem 7: 04/23/22 06:06 04/23/22 06:06 Labs: Abnormal Lab Results - Last 24 Hours (Table) 04/23/22 04/23/22 04/23/22 Range/Units 06:06 06:06 06:06 RBC 4.20 L (4.30-5.90) m/uL Hgb 12.9 L (13.0-17.5) gm/dL Hct 38.8 L (39.0-53.0) % Neutrophils # 9.0 H (1.3-7.7) k/uL Lymphocytes # 0.4 L (1.0-4.8) k/uL APTT 20.1 L (22.0-30.0) sec BUN 40 H (9-20) mg/dL Glucose 199 H (74-99) mg/dL Magnesium 1.4 L (1.6-2.3) mg/dL Assessment and Plan Assessment: Possible left lower lobe pneumonia Bilateral leg edema suspicious for Acute CHF exacerbation epigastric pain , feels better now, rule out cardiac causes Diabetes Mellitus Hypertension Hyperlipidemia History of benign prostatic hypertrophy History of coronary artery disease status post 2 stents Plan: Continue with ceftriaxone Check for procalcitonin and BNP Check ultrasound of the leg Cardiology consult Sputum culture and sensitivity Discontinue IV fluids and give 1 dose of Lasix Check bladder scan Labs and medication were reviewed.. Continue same treatment. Continue with symptomatic treatment. Resume home medication. Monitor labs and vitals. DVT and GI prophylaxis. Further recommendations as per clinical course of the patient DVT prophylaxis: Subcutaneous heparin GI Prophylaxis: Pepcid PT/OT: Pending Prognosis is guarded
[2022-04-23] MEDS: HEPARIN SODIUM,PORCINE/PF 5,000 UNIT/0.5 ML SYRINGE SQ SCH ×2 (10:38→22:21)
[2022-04-23] MEDS: FAMOTIDINE 20 MG/2 ML VIAL IV SCH ×2 (10:38→22:21)
--- NOTE | 2022-04-23 10:41 | US ---
EXAMINATION TYPE: US venous doppler duplex LE BI DATE OF EXAM: 04/23/2022 9:10 AM COMPARISON: NONE CLINICAL HISTORY: leg swelling. edema SIDE PERFORMED: Bilateral TECHNIQUE: The lower extremity deep venous system is examined utilizing real time linear array sonog donte with graded compression, doppler sonography and color-flow sonography. VESSELS IMAGED: Common Femoral Vein Deep Femoral Vein Greater Saphenous Vein * Femoral Vein Popliteal Vein Small Saphenous Vein * Proximal Calf Veins (* superficial vessels) Right Leg: Negative for DVT, Grayscale, color doppler, spectral doppler imaging performed of the eddie p veins of the lower extremities. There is normal flow, compressibility, vascular waveforms. Left Leg: Negative for DVT, Grayscale, color doppler, spectral doppler imaging performed of the deep veins of the lower extremities. There is normal flow, compressibility, vascular waveforms. IMPRESSION: No evidence for deep vein thrombosis of the lower extremities.
[2022-04-23 12:28] LABS: Appearance,Urine Clear (Clear); Bilirubin,Urine Negative (Negative); Blood,Urine Negative (Negative); Color,Urine Light Yellow; Glucose,Urine (UA) Negative (Negative); Ketones,Urine Negative (Negative); Leukocyte Esterase,Urine Negative (Negative); Nitrite,Urine Negative (Negative); PH, Urine 5.5 (5.0-8.0); Protein,Urine Negative (Negative); Urobilinogen,Urine <2.0 mg/dL (<2.0)
[2022-04-23] MEDS: METOPROLOL TARTRATE 12.5 MG TAB PO SCH (22:21)
--- NOTE | 2022-04-24 08:20 | P.CRDCN ---
History of Present Illness Consult date: 04/24/22 Chief complaint: Epigastric discomfort History of present illness: This is an 81-year-old gentleman with coronary artery disease and prior stenting of the left circumflex in 2018 as well as hypertension and dyslipidemia was brought by his to the emergency [place] for further cardiac evaluation. The patient is confused and his poor historian and the history was taken from the chart as well as from the nurse taking care of the patient. The patient is unable to provide a complete history. Apparently for the last few days is been the gastric discomfort associated with nausea vomiting. He also was experiencing cough for the sputum. No indication that he was experiencing discomfort in the chest or shortness of breath or any dizziness or lightheadedness or heart or presyncope receiving he underwent further workup including EKG showing sinus mechanism was no significant ST or T-wave abnormalities and also he underwent cardiac enzymes with troponin came in to be unremarkable. The chest x-ray showed possible pneumonia and subsequently the patient was started on antibiotic. He does have mild underlying dementia and poor functional capacity at home his walker to get up and around. The physical examination is remarkable for normal vital signs with a regular rhythm and systolic murmur border sounds bilaterally. Mild bilateral ankle edema noted Assessment Epigastric discomfort associated with nausea and vomiting Pneumonia was identified on the chest x-ray. The patient didn't have symptoms of cough and sputum as well Coronary artery disease with previous stenting of the left circumflex in 2018. His condition seems to be stable Change in mental status/underlying dementia Multiple comorbidities including hypertension and dyslipidemia Plan Acute coronary event was ruled out The patient symptoms are likely related to pneumonia No need for any further cardiac workup at this point We will follow-up with the patient on when necessary case Past Medical History Past Medical History: Diabetes Mellitus, Eye Disorder, Hyperlipidemia, Hypertension, Prostate Disorder, Thyroid Disorder Additional Past Medical History / Comment(s): Bilateral cataracts, enlarged prostate. History of Any Multi-Drug Resistant Organisms: None Reported Past Surgical History: Heart Catheterization With Stent, Joint Replacement Additional Past Surgical History / Comment(s): 3 colonoscopies, cardiac stents X2, R hip replacement 12/2018 Past Anesthesia/Blood Transfusion Reactions: No Reported Reaction, Motion Sickness Date of Last Stent Placement:: 11/08/2017 Past Psychological History: No Psychological Hx Reported Smoking Status: Never smoker Past Alcohol Use History: None Reported Past Drug Use History: None Reported - Past Family History Father Family Medical History: Cancer Medications and Allergies Home Medications Medication Instructions Recorded Confirmed Type Levothyroxine Sodium [Synthroid] 75 mcg PO QAM 08/05/17 04/23/22 History Losartan [Cozaar] 25 mg PO QAM 08/05/17 04/23/22 History Tamsulosin [Flomax] 0.4 mg PO DAILY 08/05/17 04/23/22 History Atorvastatin [Lipitor] 80 mg PO HS #90 tab 08/19/17 04/23/22 Rx Metoprolol Tartrate [Lopressor] 25 mg PO BID #180 tab 08/19/17 04/23/22 Rx Furosemide [Lasix] 20 mg PO DAILY 04/23/22 04/23/22 History sitaGLIPtin PHOS/metFORMIN HCL 1 tab PO BID-W/MEALS 04/23/22 04/23/22 History [Janumet 50-500 mg Tablet] Allergies Allergy/AdvReac Type Severity Reaction Status Date / Time No Known Allergies Allergy Verified 04/23/22 09:57 Physical Exam Vitals: Vital Signs Temp Pulse Pulse Pulse Resp BP BP 04/24/22 07:24 98.3 F 77 18 144/75 04/24/22 02:25 98.3 F 55 L 18 04/23/22 18:11 97.4 F L 93 17 119/66 04/23/22 16:27 97.9 F 87 18 135/60 04/23/22 11:58 84 22 169/82 04/23/22 09:28 04/23/22 09:26 16 04/23/22 09:22 98.0 F 87 22 156/72 Pulse Ox 04/24/22 07:24 96 04/24/22 02:25 91 L 04/23/22 18:11 93 L 04/23/22 16:27 90 L 04/23/22 11:58 04/23/22 09:28 94 L 04/23/22 09:26 04/23/22 09:22 91 L Intake and Output 04/23/22 04/24/22 04/24/22 22:59 06:59 14:59 Intake Total 120 Balance 120 Intake: Oral 120 Other: Voiding Method Urinal # Voids 2 1 Results 04/23/22 06:06 04/23/22 06:06 Cardiac Enzymes 04/23/22 04/23/22 Range/Units 06:06 11:00 AST 26 (17-59) U/L Troponin I <0.012 (0.000-0.034) ng/mL Comprehensive Metabolic Panel 04/23/22 Range/Units 06:06 Sodium 142 (137-145) mmol/L Potassium 4.8 (3.5-5.1) mmol/L Chloride 106 (98-107) mmol/L Carbon Dioxide 23 (22-30) mmol/L BUN 40 H (9-20) mg/dL Creatinine 1.16 (0.66-1.25) mg/dL Glucose 199 H (74-99) mg/dL Calcium 9.2 (8.4-10.2) mg/dL AST 26 (17-59) U/L ALT 26 (4-49) U/L Alkaline Phosphatase 74 (38-126) U/L Total Protein 7.5 (6.3-8.2) g/dL Albumin 4.2 (3.5-5.0) g/dL Current Medications Generic Name Dose Route Start Last Admin Trade Name Freq PRN Reason Stop Dose Admin Acetaminophen 650 mg 04/23/22 08:53 Acetaminophen Tab 325 Mg Tab PO Q6HR PRN Mild Pain or Fever > 100.5 Azithromycin 500 mg 04/24/22 09:00 Azithromycin 500 Mg Tab PO 04/27/22 09:01 DAILY RADHA Protocol Famotidine 20 mg 04/23/22 09:15 04/23/22 22:21 Famotidine 20 Mg/2 Ml Vial IV 20 mg Q12HR RADHA Administration Heparin Sodium (Porcine) 5,000 unit 04/23/22 09:15 04/23/22 22:21 Heparin Sodium,Porcine/Pf 5,000 Unit/0.5 Ml Syringe SQ 5,000 unit Q12HR RADHA Administration Ceftriaxone Sodium 1 gm/ 50 mls @ 100 mls/hr 04/24/22 09:00 Sodium Chloride IVPB 04/28/22 09:29 DAILY RADHA Protocol Metoprolol Tartrate 12.5 mg 04/23/22 21:00 04/23/22 22:21 Metoprolol Tartrate 12.5 Mg Tab PO 12.5 mg BID RADHA Administration Miscellaneous Information 1 each 04/23/22 09:11 Magnesium Replacement Protocol 1 Each Misc MISCELLANE DAILY PRN Per Protocol Protocol Naloxone HCl 0.2 mg 04/23/22 08:53 Naloxone 0.4 Mg/Ml 1 Ml Vial IV Q2M PRN Opioid Reversal Intake and Output 04/23/22 04/24/22 04/24/22 22:59 06:59 14:59 Intake Total 120 Balance 120 Intake: Oral 120 Other: Voiding Method Urinal # Voids 2 1 04/23/22 06:06 04/23/22 06:06
[2022-04-24] MEDS: FAMOTIDINE 20 MG/2 ML VIAL IV SCH ×2 (09:13→23:06)
[2022-04-24] MEDS: METOPROLOL TARTRATE 12.5 MG TAB PO SCH ×2 (09:42→23:06)
[2022-04-24] MEDS: HEPARIN SODIUM,PORCINE/PF 5,000 UNIT/0.5 ML SYRINGE SQ SCH ×2 (09:43→23:06)
[2022-04-24] MEDS: AZITHROMYCIN 500 MG TAB PO SCH (09:43)
[2022-04-24 10:12] LABS: African American GFR (CKD) 64.4 (60.0-200.0); Anion Gap 9.7 mmol/L (10.00-18.00); BUN/Creat Ratio 33.08 Ratio (12.00-20.00); Blood Urea Nitrogen 39.7 mg/dL (9.0-27.0); Calcium 8.6 mg/dL (8.7-10.3); Carbon Dioxide 24.3 mmol/L (20.0-27.5); Non-African American GFR(CKD) 55.6 (60.0-200.0)
[2022-04-24 11:10] LABS: Basophils # (A) 0.03 X 10*3/uL (0.00-0.10); Basophils % (A) 0.3 %; Eosinophils # (A) 0 X 10*3/uL (0.04-0.35); Eosinophils % (A) 0 %; HCT 30.9 % (39.6-50.0); Immature Grans, Automated 0.7 %; Lymphocytes # (A) 0.96 X 10*3/uL (0.90-5.00); Lymphocytes % (A) 9.6 %; MCH 29.9 pg (27.0-32.0); MCHC 32.4 g/dL (32.0-37.0); MCV 92.5 fL (80.0-97.0); Mean Platelet Volume 10.6 fL (9.5-12.2); Monocytes # (A) 0.97 X 10*3/uL (0.20-1.00); Monocytes % (A) 9.7 %; NRBC Per 100 WBC 0 /100 WBCS (0.0-0.0); Neutrophils # (A) 8.02 X 10*3/uL (1.80-7.70); Neutrophils % (A) 79.7 %; Platelet Count 200 X 10*3/uL (140-440); RBC 3.34 X 10*6/uL (4.40-5.60); RDW 13.8 % (11.5-14.5); WBC 10.05 X 10*3/uL (4.50-10.00)
[2022-04-25] MEDS: AZITHROMYCIN 500 MG TAB PO SCH (09:41)
[2022-04-25] MEDS: METOPROLOL TARTRATE 12.5 MG TAB PO SCH (09:41)
[2022-04-25] MEDS: HEPARIN SODIUM,PORCINE/PF 5,000 UNIT/0.5 ML SYRINGE SQ SCH (09:41)
[2022-04-25] MEDS: FAMOTIDINE 20 MG/2 ML VIAL IV SCH (09:41)
[2022-04-25 12:07] LABS: Glucose,Whole Blood 182 mg/dL (70-110)
[2022-04-25 16:03] VITALS: BP 144/70; PULSE 69; RESP 17; TEMP 97.3
--- NOTE | 2022-04-26 14:43 | P.PN ---
Subjective Progress Note Date: 04/24/22 81 years old male with past medical history of diabetes mellitus, hypothyroidism, hypertension, hyperlipidemia, benign prostatic hypertrophy, coronary artery disease status post stents 2 His is at bedside. Is a little bit weak and lethargic and slow to respond but oriented to time place and person Patient presents because of dyspnea and coughing with clear phlegm, for a few days duration associated with some epigastric abdominal pain. Patient has been having a little nausea but no diarrhea. No current abdominal pain or tenderness. Increased frequency of urination but no dysuria or urgency No headache or weakness or numbness, no dizziness. 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 Troponin is negative less than 0.012. Lipase normal. EKG showing normal sinus rhythm at [address]-T changes Chest x-ray: Left basilar opacity could reflect acute infiltrate and/or atelectasis. Correlate clinically Objective - Vital Signs Vital signs: Vital Signs Temp 98.3 F 04/24/22 07:24 Pulse 77 04/24/22 10:45 Resp 18 04/24/22 07:24 BP 144/75 04/24/22 07:24 Pulse Ox 98 04/24/22 12:06 FiO2 Intake & Output 04/23/22 04/24/22 04/24/22 18:59 06:59 18:59 Intake Total 120 480 Output Total 50 Balance 70 480 Weight 83.915 kg Intake: Oral 120 480 Output: Post Void Residual 50 Other: Voiding Method Urinal Urinal Urinal # Voids 2 1 3 - Exam GENERAL: The patient is alert and oriented x3, not in any acute distress. Well developed, well nourished. HEENT: Pupils are round and equally reacting to light. EOMI. No scleral icterus. No conjunctival pallor. Normocephalic, atraumatic. No pharyngeal erythema. No thyromegaly. CARDIOVASCULAR: S1 and S2 present. No murmurs, rubs, or gallops. -PULMONARY: Chest is clear to auscultation, no wheezing or crackles. Mildly tachypneic with coughing and clear phlegm ABDOMEN: Soft, nontender, nondistended, normoactive bowel sounds. No palpable organomegaly. MUSCULOSKELETAL: No joint swelling or deformity. -EXTREMITIES: No cyanosis, clubbing, , 2+ bilateral pitting leg edema. NEUROLOGICAL: Gross neurological examination did not reveal any focal deficits. SKIN: No rashes. no petechiae. - Labs CBC & Chem 7: 04/24/22 04:40 04/24/22 04:40 Labs: Abnormal Lab Results - Last 24 Hours (Table) 04/24/22 04/24/22 Range/Units 04:40 04:40 WBC 10.05 H (4.50-10.00) X 10*3/uL RBC 3.34 L (4.40-5.60) X 10*6/uL Hgb 10.0 L (13.0-17.0) g/dL Hct 30.9 L (39.6-50.0) % Immature Gran # 0.07 H (0.00-0.04) X 10*3/uL Neutrophils # 8.02 H (1.80-7.70) X 10*3/uL Eosinophils # 0 L (0.04-0.35) X 10*3/uL Anion Gap 9.70 L (10.00-18.00) mmol/L BUN 39.7 H (9.0-27.0) mg/dL Est GFR (CKD-EPI)NonAf 55.6 L (60.0-200.0) BUN/Creatinine Ratio 33.08 H (12.00-20.00) Ratio Glucose 149 H (70-110) mg/dL Calcium 8.6 L (8.7-10.3) mg/dL Microbiology - Last 24 Hours (Table) 04/23/22 08:15 Blood Culture - Preliminary Blood No Growth after 24 hours Assessment and Plan Assessment: Possible left lower lobe pneumonia Bilateral leg edema suspicious for Acute CHF exacerbation epigastric pain , feels better now, rule out cardiac causes Diabetes Mellitus Hypertension Hyperlipidemia History of benign prostatic hypertrophy History of coronary artery disease status post 2 stents Plan: Continue with ceftriaxone Check for procalcitonin and BNP Check ultrasound of the leg Cardiology consult Sputum culture and sensitivity Discontinue IV fluids and give 1 dose of Lasix Check bladder scan Labs and medication were reviewed.. Continue same treatment. Continue with symptomatic treatment. Resume home medication. Monitor labs and vitals. DVT and GI prophylaxis. Further recommendations as per clinical course of the patient DVT prophylaxis: Subcutaneous heparin GI Prophylaxis: Pepcid
--- NOTE | 2022-04-28 06:41 | CDI ---
Documentation Clarification Form Date: 04/28/2022 6:26:00 AM From: Mercedes Waddell Admit Date: 04/23/2022 8:53:00 AM Patient Name: Nico Holman Visit Number: [id number] Discharge Date: 04/25/2022 4:59:00 PM ATTENTION: The Clinical Documentation Specialists (CDI) and [facility] Coding Staff appreciate your assistance in clarifying documentation. Please respond to the clarification below the line at the bottom and electronically sign. The CDI & [facility] Coding staff will review the response and follow-up if needed. Please note: Queries are made part of the Legal Health Record. If you have any questions, please contact the author of this message via ITS. Dr. Urbina Sheet Per H and P and Progress Note 04/24 "Bilateral leg edema suspicious for Acute CHF exacerbation epigastric pain. Additional information regarding the type of CHF is requested. History/Risk Factors: HTN, BPH, hypothyroidism, hyperlipdidemia, dementia Clinical Indicators: VS/Pulse OX: 97.5 F, 83 bpm, 16, 170/98 93% RA BNP: 375 Echocardiogram Results: No Echo Chest X Ray: Left basilar opacity. Right lung clear Treatment: Lasix 40 mg IV In your professional opinion, can you please clarify the type of Acute exacerbation of CHF. [ ] Acute Systolic Heart Failure (reduced EF) [ ] Acute on Chronic Systolic Heart Failure (reduced EF) [ ] Acute Diastolic Heart Failure (preserved EF) [ ] Acute on Chronic Diastolic Heart Failure (preserved EF) [ ] Acute Systolic & Diastolic Heart Failure [ ] Acute on Chronic Heart Failure Systolic & Diastolic Heart Failure [ ] Acute exacerbation of CHF ruled out [ ] Other, please specify [ ] Unable to determine Acute exacerbation of CHF ruled out MTDD
== END 2022-04-25 16:59 | disposition home health service (06) | DRG 195 ==
LOC: EC 05:05 → 4SSUR 08:53 → 6NMEDSUR 12:25
PROVIDERS: ADMIT Internal Medicine; ATTEND Internal Medicine
DX: J18.9 Pneumonia, unspecified organism (principal); N40.0 Benign prostatic hyperplasia without lower urinary tract symptoms; N40.1 Benign prostatic hyperplasia with lower urinary tract symptoms; I25.10 Atherosclerotic heart disease of native coronary artery without angina pectoris; Z95.5 Presence of coronary angioplasty implant and graft; Z79.82 Long term (current) use of aspirin; Z79.84 Long term (current) use of oral hypoglycemic drugs; Z79.890 Hormone replacement therapy; Z79.899 Other long term (current) drug therapy; Z96.641 Presence of right artificial hip joint; F03.90 Unspecified dementia, unspecified severity, without behavioral disturbance, psychotic disturbance, mood disturbance, and anxiety
CPT/HCPCS: 36415; 51798; 71046; 80048; 80053; 81003; 83690; 83735; 83880; 84145; 84484; 85025; 85610; 85730; 87040; 93005; 93970; 94760; 96361; 96365; 96372; 96375; 99285

== ENCOUNTER → 2022-06-23 | Outpatient (CLI) | payer MEDICARE ==
[2022-06-24 00:09] LABS: ALT 17 U/L (10-49); AST 20 U/L (14-35); Chol/HDL Ratio 3.01 Ratio; LDL Cholesterol,Calculated 62.5 mg/dL (0.0-131.0)
== END | disposition home or self-care (01) ==
LOC: LABWHC1 15:08
PROVIDERS: ATTEND Internal Medicine Cardiovascular Disease
DX: E78.2 Mixed hyperlipidemia (principal)
CPT/HCPCS: 36415; 80061; 84450; 84460

== ENCOUNTER → 2023-06-24 | Outpatient (CLI) | payer MEDICARE ==
[2023-06-24 15:47] LABS: Chol/HDL Ratio 3.73 Ratio
[2023-06-24 15:48] LABS: ALT 5 U/L (10-49); AST 20 U/L (14-35); LDL Cholesterol,Calculated 73.7 mg/dL (0.0-131.0)
== END | disposition home or self-care (01) ==
LOC: LABWHC1 10:14
PROVIDERS: ATTEND Internal Medicine Cardiovascular Disease
DX: E78.2 Mixed hyperlipidemia (principal)
CPT/HCPCS: 36415; 80061; 84450; 84460

== ENCOUNTER 2024-05-08 11:06 | Inpatient (IN) | payer MEDICARE ==
[2024-05-08 11:12] LABS: Glucose,Whole Blood 155 mg/dL (70-110)
--- NOTE | 2024-05-08 11:19 | ED ---
General Adult HPI - General Chief complaint: Neuro Symptoms/Deficit Stated complaint: AMS Time Seen by Provider: 05/08/24 11:08 Source: patient, EMS, RN notes reviewed, old records reviewed Mode of arrival: EMS - History of Present Illness Initial comments: 83-year-old male presenting with altered mental status. Patient has had similar episodes over the past several months. History is initially obtained from paramedics who brought the patient in. He does have a diagnosis of Lewy body dementia according to paramedics. Uncertain of baseline mental status but apparently this morning approximately 45 minutes prior to arrival the patient became more confused than typical paramedics report that he was initially nonresponsive but became more alert throughout transport. Blood sugar was normal. Vital signs were normal. They did not identify any localizing features. - Related Data Home Medications Medication Instructions Recorded Confirmed Levothyroxine Sodium [Synthroid] 75 mcg PO DAILY@0800 08/05/17 05/08/24 Tamsulosin [Flomax] 0.4 mg PO HS@2100 08/05/17 05/08/24 sitaGLIPtin PHOS/metFORMIN HCL 1 tab PO BID@0800,1700 04/23/22 05/08/24 [Janumet 50-500 mg Tablet] Calcium Carbonate [Calcium] 300 mg PO BID@0800,1700 03/15/24 05/08/24 Carbidopa-Levodopa 25-100 mg 1 tab PO TID@0800,1200,1700 03/15/24 05/08/24 [Sinemet 25-100 mg] Metoprolol Succinate [Metoprolol 12.5 mg PO BID@0800,1700 03/15/24 05/08/24 Succinate ER] [place]ustin-3/Dha/Epa/Fish Oil [Fish Oil 1 cap PO DAILY@0800 03/15/24 05/08/24 1,000 mg Softgel] Docusate [Colace] 100 mg PO BID@0800,1700 03/24/24 05/08/24 Folic Acid 1 mg PO DAILY@0800 03/24/24 05/08/24 Multivitamins, Thera [Multivitamin 1 tab PO DAILY@0800 03/24/24 05/08/24 (formulary)] Nystatin 100,000Unit/gm Cream 1 applic TOPICAL TID@0800,1200,1700 03/24/24 05/08/24 [Mycostatin Cream] Thiamine [Vitamin B-1] 100 mg PO BID@0800,1700 03/24/24 05/08/24 Atorvastatin [Lipitor] 80 mg PO HS@2100 05/08/24 05/08/24 Midodrine HCl [ProAmantine] 5 mg PO TID@0800,1200,1700 05/08/24 05/08/24 Allergies Allergy/AdvReac Type Severity Reaction Status Date / Time No Known Allergies Allergy Verified 05/08/24 12:25 Review of Systems ROS Statement: Those systems with pertinent positive or pertinent negative responses have been documented in the HPI. ROS Other: All systems not noted in ROS Statement are negative. Past Medical History Past Medical History: Dementia, Diabetes Mellitus, Eye Disorder, Hyperlipidemia, Hypertension, Prostate Disorder, Thyroid Disorder Additional Past Medical History / Comment(s): Bilateral cataracts, enlarged prostate. History of Any Multi-Drug Resistant Organisms: None Reported Past Surgical History: Heart Catheterization With Stent, Joint Replacement Additional Past Surgical History / Comment(s): 3 colonoscopies, cardiac stents X2, R hip replacement 12/2018 Past Anesthesia/Blood Transfusion Reactions: No Reported Reaction, Motion Sickness Date of Last Stent Placement:: 11/08/2017 Past Psychological History: No Psychological Hx Reported Smoking Status: Never smoker Past Alcohol Use History: None Reported Past Drug Use History: None Reported - Past Family History Father Family Medical History: Cancer General Exam General appearance: alert, in no apparent distress Head exam: Present: atraumatic, normocephalic Eye exam: Present: normal appearance, PERRL ENT exam: Present: mucous membranes dry Neck exam: Present: normal inspection. Absent: tenderness, meningismus Respiratory exam: Present: normal lung sounds bilaterally. Absent: respiratory distress, wheezes Cardiovascular Exam: Present: regular rate, normal rhythm GI/Abdominal exam: Present: soft. Absent: distended, tenderness Extremities exam: Present: normal inspection, normal capillary refill Neurological exam: Present: alert, motor sensory deficit (Confusion with mild dysarthria no localizing features). Absent: oriented X3 (1), CN II-XII intact Skin exam: Present: warm, dry, intact Course Vital Signs 05/08/24 11:08 Temperature 97.4 F L Pulse Rate 74 Respiratory 18 Rate Blood Pressure 154/82 O2 Sat by Pulse 98 Oximetry - Reevaluation(s) Reevaluation #1: 05/08/24 13:43 Family reports recent changes in midodrine dosing and there is concern for episodes of hypotension resulting in period of unresponsiveness. Patient will be observed for blood pressure monitoring and correct dose of midodrine administration. Medical Decision Making - Medical Decision Making Was pt. sent in by a medical professional or institution (, CASSANDRA, WEB MARKETING STRATEGIST, urgent care, hospital, or intermediate...) When possible be specific @ -No Did you speak to anyone other than the patient for history (EMS, parent, family, police, friend...)? What history was obtained from this source @ -Patient's son and Did you review nursing and triage notes (agree or disagree)? Why? @ -I reviewed and agree with nursing and triage notes Were old charts reviewed (outside hosp., previous admission, EMS record, old EKG, old radiological studies, urgent care reports/EKG's, intermediate records)? Report findings @ -No old charts were reviewed Differential Altered Mental Status: Hypoglycemia, DKA, hypercapnia, ETOH, overdose, CO poisoning, trauma, myxedema coma, HTN encephalopathy, infection, encephalitis, psychosis, intercranial hemorrhage, hepatic encephalopathy, meningitis, CVA, this is not meant to be an all-inclusive list EKG interpreted by me (3pts min.). @ -Sinus rhythm rate of 73, NJ interval 166, QRS duration 78, QTc [address] segment elevation. X-rays interpreted by me (1pt min.). @Chest x-ray negative for focal pneumonia CT interpreted by me (1pt min.). @ -CT brain negative for intracranial hemorrhage or mass effect U/S interpreted by me (1pt. min.). @ -None done What testing was considered but not performed or refused? (CT, X-rays, U/S, labs)? Why? @ -None What meds were considered but not given or refused? Why? @ -None Did you discuss the management of the patient with other professionals (professionals i.e. CASSANDRA Hernandez, WEB MARKETING STRATEGIST, lab, RT, psych nurse, licensed social worker, rebar bender, teacher, svp chief marketing officer, piano case maker)? Give summary @Dr. Ornelas will admit Was smoking cessation discussed for >3mins.? @ -No Was critical care preformed (if so, how long)? @ -No Were there social determinants of health that impacted care today? How? (Homelessness, low income, unemployed, alcoholism, drug addiction, transportation, low edu. Level, literacy, decrease access to med. care, [facility], rehab)? @ -No Was there de-escalation of care discussed even if they declined (Discuss DNR or withdrawal of care, Hospice)? DNR status @ -No What co-morbidities impacted this encounter? (DM, HTN, Smoking, COPD, CAD, Cancer, CVA, ARF, Chemo, Hep., AIDS, mental health diagnosis, sleep apnea, morbid obesity)? @ -Dementia Was patient admitted / discharged? Hospital course, mention meds given and route, prescriptions, significant lab abnormalities, going to OR and other pertinent info. @83-year-old male with altered mental status. No localizing features. Patient is close to baseline at the time of arrival and does improve while in the emergency department. Head CT is negative for acute findings, laboratory testing is showing some minor abnormalities without definitive explanation for patient's change in mental status. Patient will be observed, admitted to Dr. Ornelas who is able to evaluate the patient in the emergency department. Urinalysis pending Undiagnosed new problem with uncertain prognosis? @ -No Drug Therapy requiring intensive monitoring for toxicity (Heparin, Nitro, Insulin, Cardizem)? @ -No Were any procedures done? @ -No Diagnosis/symptom? @Altered mental status Acute, or Chronic, or Acute on Chronic? @ -[Acute Uncomplicated (without systemic symptoms) or Complicated (systemic symptoms)? @ -Default Side effects of treatment? @ -No Exacerbation, Progression, or Severe Exacerbation? @ -No Poses a threat to life or bodily function? How? (Chest pain, USA, PA, pneumonia, PE, COPD, DKA, ARF, appy, cholecystitis, CVA, Diverticulitis, Homicidal, Suicidal, threat to staff... and all critical care pts) @ -Yes, delirium, encephalopathy - Lab Data Result diagrams: 05/08/24 11:13 05/08/24 11:13 Lab Results 05/08/24 05/08/24 05/08/24 Range/Units 11:11 11:13 11:13 WBC 7.2 (3.8-10.6) k/uL RBC 3.31 L (4.30-5.90) m/uL Hgb 10.1 L (13.0-17.5) gm/dL Hct 31.3 L (39.0-53.0) % MCV 94.7 (80.0-100.0) fL MCH 30.6 (25.0-35.0) pg MCHC 32.3 (31.0-37.0) g/dL RDW 14.6 (11.5-15.5) % Plt Count 204 (150-450) k/uL MPV 7.8 Neutrophils % 68 % Lymphocytes % 14 % Monocytes % 7 % Eosinophils % 9 % Basophils % 1 % Neutrophils # 4.9 (1.3-7.7) k/uL Lymphocytes # 1.0 (1.0-4.8) k/uL Monocytes # 0.5 (0-1.0) k/uL Eosinophils # 0.6 (0-0.7) k/uL Basophils # 0.0 (0-0.2) k/uL PT 12.0 (10.0-12.5) sec INR 1.1 (<1.2) APTT 23.7 (22.0-30.0) sec Sodium (137-145) mmol/L Potassium (3.5-5.1) mmol/L Chloride (98-107) mmol/L Carbon Dioxide (22-30) mmol/L Anion Gap mmol/L BUN (9-20) mg/dL Creatinine (0.66-1.25) mg/dL Est GFR (CKD-EPI)AfAm (>60 ml/min/1.73 sqM) Est GFR (CKD-EPI)NonAf (>60 ml/min/1.73 sqM) Glucose (74-99) mg/dL POC Glucose (mg/dL) 155 H (70-110) mg/dL POC Glu Item Processing Clerk ID Hyde Rg Calcium (8.4-10.2) mg/dL Total Bilirubin (0.2-1.3) mg/dL AST (17-59) U/L ALT (4-49) U/L Alkaline Phosphatase (38-126) U/L Troponin I (0.000-0.034) ng/mL Total Protein (6.3-8.2) g/dL Albumin (3.5-5.0) g/dL 05/08/24 05/08/24 Range/Units 11:13 11:13 WBC (3.8-10.6) k/uL RBC (4.30-5.90) m/uL Hgb (13.0-17.5) gm/dL Hct (39.0-53.0) % MCV (80.0-100.0) fL MCH (25.0-35.0) pg MCHC (31.0-37.0) g/dL RDW (11.5-15.5) % Plt Count (150-450) k/uL MPV Neutrophils % % Lymphocytes % % Monocytes % % Eosinophils % % Basophils % % Neutrophils # (1.3-7.7) k/uL Lymphocytes # (1.0-4.8) k/uL Monocytes # (0-1.0) k/uL Eosinophils # (0-0.7) k/uL Basophils # (0-0.2) k/uL PT (10.0-12.5) sec INR (<1.2) APTT (22.0-30.0) sec Sodium 134 L (137-145) mmol/L Potassium 4.2 (3.5-5.1) mmol/L Chloride 104 (98-107) mmol/L Carbon Dioxide 23 (22-30) mmol/L Anion Gap 7 mmol/L BUN 21 H (9-20) mg/dL Creatinine 0.98 (0.66-1.25) mg/dL Est GFR (CKD-EPI)AfAm 82 (>60 ml/min/1.73 sqM) Est GFR (CKD-EPI)NonAf 71 (>60 ml/min/1.73 sqM) Glucose 150 H (74-99) mg/dL POC Glucose (mg/dL) (70-110) mg/dL POC Glu Item Processing Clerk ID Calcium 8.1 L (8.4-10.2) mg/dL Total Bilirubin 0.7 (0.2-1.3) mg/dL AST 22 (17-59) U/L ALT 12 (4-49) U/L Alkaline Phosphatase 53 (38-126) U/L Troponin I <0.012 (0.000-0.034) ng/mL Total Protein 5.9 L (6.3-8.2) g/dL Albumin 3.0 L (3.5-5.0) g/dL Disposition Clinical Impression: AMS (altered mental status) Disposition: ADMITTED IP TO THIS HOSP Condition: Stable Is patient prescribed a controlled substance at d/c from ED?: No Time of Disposition: 12:38
[2024-05-08 11:27] LABS: Basophils % (A) 1 %; Eosinophils # (A) 0.6 k/uL (0-0.7); Eosinophils % (A) 9 %; HCT 31.3 % (39.0-53.0); HGB 10.1 gm/dL (13.0-17.5); Lymphocytes % (A) 14 %; MCH 30.6 pg (25.0-35.0); MCHC 32.3 g/dL (31.0-37.0); MCV 94.7 fL (80.0-100.0); Mean Platelet Volume 7.8; Monocytes # (A) 0.5 k/uL (0-1.0); Monocytes % (A) 7 %; Neutrophils # (A) 4.9 k/uL (1.3-7.7); Neutrophils % (A) 68 %; Platelet Count 204 k/uL (150-450); RBC 3.31 m/uL (4.30-5.90); RDW 14.6 % (11.5-15.5); WBC 7.2 k/uL (3.8-10.6)
[2024-05-08 11:34] LABS: INR 1.1 (<1.2); Partial Thromboplastin Time 23.7 sec (22.0-30.0)
--- NOTE | 2024-05-08 11:46 | XR ---
EXAMINATION TYPE: XR chest 1V portable DATE OF EXAM: 05/08/2024 11:37 AM COMPARISON: Chest radiographs from 03/26/2024. CLINICAL INDICATION: Male, 83 years old with history of altered mental status; TECHNIQUE: XR chest 1V portable Frontal view of the chest. FINDINGS: Lungs/Pleura: There is no evidence of pleural effusion, focal consolidation, or pneumothorax. Pulmonary vascularity: Unremarkable. Heart/mediastinum: Cardiomediastinal silhouette is unremarkable. Musculoskeletal: No acute osseous pathology. Other findings: None IMPRESSION: No acute cardiopulmonary disease/process. [facility], , 05/08/2024 11:43 AM
[2024-05-08 11:48] LABS: ALT 12 U/L (4-49); AST 22 U/L (17-59); African American GFR (CKD) 82 (>60 ml/min/1.73 sqM); Alkaline Phosphatase 53 U/L (38-126); Anion Gap 7 mmol/L; Blood Urea Nitrogen 21 mg/dL (9-20); Calcium 8.1 mg/dL (8.4-10.2); Carbon Dioxide 23 mmol/L (22-30); Chloride 104 mmol/L (98-107); Glucose 150 mg/dL (74-99); Non-African American GFR(CKD) 71 (>60 ml/min/1.73 sqM); Potassium 4.2 mmol/L (3.5-5.1); Sodium 134 mmol/L (137-145); Total Bilirubin 0.7 mg/dL (0.2-1.3); Total Protein 5.9 g/dL (6.3-8.2)
--- NOTE | 2024-05-08 11:48 | CT ---
EXAMINATION TYPE: CT brain wo con DATE OF EXAM: 05/08/2024 11:39 AM COMPARISON: 03/24/2024.. CLINICAL INDICATION: Male, 83 years old with history of Altered mental status, AMS. TECHNIQUE: Brain: Axial CT images of the brain were obtained with coronal and sagittal reformats created and rev iewed. Contrast used: None. Oral contrast used: None. CT DLP: 1302.4 mGycm, Automated exposure control for dose reduction was used. FINDINGS: Brain: Extra-axial spaces: No abnormal extra-axial fluid collections. Ventricular system: Dilatation in proportion to cerebral atrophy. Cerebral parenchyma: Cerebral atrophy. No acute intraparenchymal hemorrhage or mass effect. The julien -white junction is well differentiated. Scattered hypoattenuating areas are seen within the white mat ter. Cerebellum: Unremarkable. Mass effect: No evidence of midline shift. Intracranial vasculature: Atherosclerotic calcifications of the intracranial vessels. Soft tissues: Normal. Calvarium/osseous structures: No depressed skull fracture. Paranasal sinuses and mastoid air cells: Mild scattered paranasal sinus disease. Visualized orbits: Bilateral aphakia IMPRESSION: No acute intracranial process. [facility], , 05/08/2024 11:45 AM
[2024-05-08] MEDS ORDERED: NALOXONE 0.4 MG/ML 1 ML VIAL IV PRN (12:31)
[2024-05-08] MEDS: SODIUM CHLORIDE 0.9% 1,000 ML IV SCH (13:53)
--- NOTE | 2024-05-08 15:07 | HP ---
HISTORY AND PHYSICAL CHIEF COMPLAINT: Change in mental status. HISTORY OF PRESENT ILLNESS: This 83-year-old gentleman with a past medical history of multiple medical problems, history of Lewy body dementia, history of Parkinson's, who was recently admitted with metabolic encephalopathy with SIRS criteria without any known source . Currently, the patient is noted to have change in mental status and slurring of speech, and the patient was admitted for evaluation of treatment. There is no history of any fever, rigors or chills at this time. The patient is undergoing initial evaluation in the ER at this time. PAST MEDICAL HISTORY: Reviewed and include Lewy body dementia, history of Parkinson's. Rest of history and rest of the chart reviewed. HOME MEDICATIONS: Reviewed and medication include Flomax. Doses and rest of medications reviewed. ALLERGIES: None. FAMILY HISTORY: Could not be taken because of change in mental status. SOCIAL HISTORY: Could not be taken because of change in mental status. REVIEW OF SYSTEMS: Could not be taken because of change in mental status. PHYSICAL EXAMINATION: VITAL SIGNS: Pulse is 74, blood pressure 152/80, respirations 18. HEENT: Conjunctivae normal. NECK: diffusely weak tremors, increased tone also present. LABORATORY DATA: Hemoglobin 10.2. Rest of the labs are noted. ASSESSMENT: 1. Change in mental status and possible acute metabolic encephalopathy of undetermined origin. 2. Lewy body dementia. 3. Diabetes mellitus, type 2. 4. Hypertension. 5. Hyperlipidemia. 6. History of bilateral cataracts. 7. History of coronary artery disease, stent. RECOMMENDATIONS: This 83-year-old gentleman presented with multiple complex medical issues, we will monitor the patient closely. I will recommend evaluation to rule out the possibility of any viral infections or sepsis. Otherwise, Neurology was consulted. PT, OT evaluation. Guarded prognosis because of multiple complex medical issues. Resume medications once they are confirmed. Further recommendations to follow. MMODL / IJN: [id number] / MTDD
[2024-05-08] MEDS: CALCIUM CARBONATE 500 MG CHEWABLE PO SCH (17:04)
[2024-05-08] MEDS: THIAMINE 100 MG TAB PO SCH (17:06)
[2024-05-08] MEDS: metFORMIN 500 MG TAB PO SCH (17:07)
[2024-05-08] MEDS: CARBIDOPA-LEVODOPA 25-100 MG 1 EACH TAB PO SCH (17:10)
[2024-05-08] MEDS: MIDODRINE 5 MG TAB PO SCH (17:13)
[2024-05-08] MEDS: METOPROLOL SUCCINATE (ER) 25 MG TAB.ER.24H PO SCH (17:15)
[2024-05-08] MEDS: DOCUSATE 100 MG CAP PO SCH (17:19)
[2024-05-08 17:28] LABS: Appearance,Urine Clear (Clear); Bilirubin,Urine Negative (Negative); Blood,Urine Negative (Negative); Color,Urine Yellow; Glucose,Urine (UA) Negative (Negative); Ketones,Urine Negative (Negative); Leukocyte Esterase,Urine Negative (Negative); Nitrite,Urine Negative (Negative); Protein,Urine Negative (Negative); Specific Gravity,Urine 1.018 (1.001-1.035)
[2024-05-08 17:41] LABS: Influenza A Not Detected (Not Detectd); Influenza B Not Detected (Not Detectd); RSV Not Detected (Not Detectd)
[2024-05-08 19:58] LABS: Glucose,Whole Blood 132 mg/dL (70-110)
[2024-05-08] MEDS: TAMSULOSIN 0.4 MG CAP.ER.24H PO SCH (22:48)
[2024-05-08] MEDS: DOXAZOSIN 2 MG TAB PO SCH (23:15)
[2024-05-08] MEDS: ATORVASTATIN 80 MG TAB PO SCH (23:15)
[2024-05-09 06:09] LABS: Glucose,Whole Blood 87 mg/dL (70-110)
[2024-05-09] MEDS ORDERED: NON FORMULARY DRUG (Omega-3/Dha/Epa/Fish Oil [Fish Oil 1,000 Mg Softgel] 1 EACH Capsule) PO SCH (08:00)
[2024-05-09 08:36] LABS: ALT 14 U/L (10-49); AST 21 U/L (14-35); Albumin 2.9 g/dL (3.8-4.9); Albumin/Globulin Ratio 1.26 Ratio (1.60-3.17); Alkaline Phosphatase 54 U/L (41-126); BUN/Creat Ratio 19.22 Ratio (12.00-20.00); Blood Urea Nitrogen 17.3 mg/dL (9.0-27.0); Chloride 106 mmol/L (96-109); Globulin 2.3 g/dL (1.6-3.3); Glucose 76 mg/dL (70-110); Potassium 4.2 mmol/L (3.5-5.5); Sodium 137 mmol/L (135-145); Total Bilirubin 0.5 mg/dL (0.3-1.2); Total Protein 5.2 g/dL (6.2-8.2)
[2024-05-09 08:39] LABS: Basophils # (A) 0.04 X 10*3/uL (0.00-0.10); Basophils % (A) 0.5 %; Eosinophils # (A) 0.72 X 10*3/uL (0.04-0.35); Eosinophils % (A) 8.6 %; HCT 26.8 % (39.6-50.0); HGB 9.2 g/dL (13.0-17.0); Lymphocytes # (A) 1.22 X 10*3/uL (0.90-5.00); Lymphocytes % (A) 14.6 %; MCH 32.1 pg (27.0-32.0); MCHC 34.3 g/dL (32.0-37.0); MCV 93.4 FL (80.0-97.0); Mean Platelet Volume 9.8 FL (9.5-12.2); Monocytes # (A) 0.82 X 10*3/uL (0.20-1.00); Monocytes % (A) 9.8 %; NRBC Per 100 WBC 0 X 10*3/uL (0.00-0.01); Platelet Count 189 X 10*3/uL (140-440); RBC 2.87 X 10*6/uL (4.40-5.60); RDW 14.1 % (11.5-14.5); WBC 8.34 X 10*3/uL (4.50-10.00)
[2024-05-09] MEDS: LEVOTHYROXINE 75 MCG TAB PO SCH (09:09)
[2024-05-09] MEDS: MULTIVITAMINS, THERA 1 EACH TAB PO SCH (09:09)
[2024-05-09] MEDS: FOLIC ACID 1 MG TAB PO SCH (09:09)
[2024-05-09] MEDS: LINAGLIPTIN 5 MG TABLET PO SCH (09:09)
[2024-05-09 11:41] LABS: Glucose,Whole Blood 95 mg/dL (70-110)
[2024-05-09 17:01] LABS: Glucose,Whole Blood 143 mg/dL (70-110)
[2024-05-09] MEDS: ASPIRIN 81 MG PO STA (17:24)
[2024-05-09] MEDS: ZINC OXIDE PASTE (Z-GUARD) 1 APPLIC TOPICAL PRN (17:28)
--- NOTE | 2024-05-09 17:36 | US ---
EXAMINATION TYPE: US carotid duplex BILAT DATE OF EXAM: 05/09/2024 COMPARISON: NONE CLINICAL INDICATION: Male, 83 years old with history of TIA, ams; Altered mental status Additional History: .... TECHNIQUE: Grayscale, color Doppler and spectral Doppler evaluation of the bilateral carotid systems and vertebral arteries. Indirect Doppler criteria was utilized. FINDINGS: EXAM MEASUREMENTS: RIGHT: Peak Systolic Velocity (PSV) cm/sec ----- Right CCA: 75.5 ----- Right ICA: 66.4 ----- Right ECA: 109.7 ICA/CCA ratio: 0.9 RIGHT: End Diastole cm/sec ----- Right CCA: 6.4 ----- Right ICA: 9.0 ----- Right ECA: 6.3 LEFT: Peak Systolic Velocity (PSV) cm/sec ----- Left CCA: 84.9 ----- Left ICA: 77.1 ----- Left ECA: 123.7 ICA/CCA ratio: 0.9 LEFT: End Diastole cm/sec ----- Left CCA: 11.1 ----- Left ICA: 11.1 ----- Left ECA: 9.0 VERTEBRALS (direction of flow): Right Vertebral: not seen Left Vertebral: Antegrade Rhythm: Normal PRODUCT SAFETY TECHNICIAN NOTES: Limited exam due to patient being combative. Color Doppler imaging shows patency with blood flow throughout the carotid artery. Spectral waveforms are within normal limits. IMPRESSION: Right: Less than 50% stenosis of the carotid bifurcation. Left: Less than 50% stenosis of the carotid bifurcation. Criteria for Assigning % of Stenosis / Diameter reduction (Estimation based on the indirect measurements of the internal carotid artery velocities (ICA PSV). 1. Normal (no stenosis)=ICA PSV < 180 cm/s: ratio < 2.0: ICA EDV<40 cm/s. 2. Less than 50% stenosis=ICA PSV < 180 cm/s: ratio < 2.0: ICA EDV<40 cm/s. 3. 50 to 69% stenosis=ICA PSV of 180 to 230 cm/s: ration 2.0 ? 4.0: ICA EDV 40-100 cm/s. PSV 125-180 cm/sec and ICA/CCA PSV Ratio ? 2.0 is also consistent with 50-69% stenosis 4. Greater than 70% stenosis to near occlusion= ICA PSV > 230 cm/s: ratio > 4.0: ICA EDV > 100 cm/s. 5. Near occlusion= ICA PSV velocities may be low or undetectable: variable ratio and ICA EDV. 6. Total occlusion=unable to detect flow. [facility], , 05/09/2024 5:33 PM
[2024-05-09 18:33] LABS: Amphetamine Screen,Urine Not Detected (NotDetected); Barbiturate Screen,Urine Not Detected (NotDetected); Benzodiazepines Screen,Urine Not Detected (NotDetected); Cocaine Screen,Urine Not Detected (NotDetected); Methadone Screen, Urine Not Detected (NotDetected); Opiate Screen,Urine Not Detected (NotDetected); Oxycodone Screen, Urine Not Detected (NotDetected); Phencyclidine Screen,Urine Not Detected (NotDetected); Tricyclic Antidepressant,Urine Not Detected (NotDetected); Urn Cannabinoid Scrn Not Detected (NotDetected)
[2024-05-09 20:21] LABS: Glucose,Whole Blood 105 mg/dL (70-110)
--- NOTE | 2024-05-09 22:10 | PN ---
PROGRESS NOTE DATE OF SERVICE: 05/09/2024 SUBJECTIVE: This is an 83-year-old gentleman, admitted with change in mental status and metabolic encephalopathy, who also had a history of Lewy body dementia. The CT scan of the brain which was done yesterday, showed no acute process. PHYSICAL EXAMINATION: VITAL SIGNS: Pulse of 90, blood pressure n, respirations 17. CHEST: Clear to auscultation. CARDIOVASCULAR: S1, S2. ABDOMEN: Soft. NERVOUS SYSTEM: Nonfocal. LABORATORY DATA: Hemoglobin 9.2. ASSESSMENT: 1. Change in mental with possible acute metabolic encephalopathy, on treatment noted. 2. Lewy body dementia. 3. Diabetes mellitus type 2. 4. Hypertension. 5. Hyperlipidemia. 6. Multiple medical issues. RECOMMENDATIONS: Recommended to continue current management, continue with symptomatic treatment. PT/OT. Evaluation psychiatric social worker supervisor to evaluate the home situation. Guarded prognosis because of multiple complex medical conditions. Further recommendations to follow. MMODL / IJN: [id number] / MTDD
[2024-05-10 06:34] LABS: Glucose,Whole Blood 84 mg/dL (70-110)
[2024-05-10] MEDS: ASPIRIN 81 MG PO SCH (08:24)
[2024-05-10 08:28] LABS: Basophils # (A) 0.05 X 10*3/uL (0.00-0.10); Basophils % (A) 0.7 %; Eosinophils # (A) 0.65 X 10*3/uL (0.04-0.35); Eosinophils % (A) 8.9 %; HCT 29.3 % (39.6-50.0); HGB 9.5 g/dL (13.0-17.0); Lymphocytes # (A) 1.45 X 10*3/uL (0.90-5.00); Lymphocytes % (A) 19.8 %; MCH 31.4 pg (27.0-32.0); MCHC 32.4 g/dL (32.0-37.0); MCV 96.7 FL (80.0-97.0); Mean Platelet Volume 9.5 FL (9.5-12.2); Monocytes % (A) 10.9 %; NRBC Per 100 WBC 0.03 X 10*3/uL (0.00-0.01); Neutrophils # (A) 4.36 X 10*3/uL (1.80-7.70); Neutrophils % (A) 59.3 %; Platelet Count 177 X 10*3/uL (140-440); RBC 3.03 X 10*6/uL (4.40-5.60); RDW 14.1 % (11.5-14.5); WBC 7.34 X 10*3/uL (4.50-10.00)
[2024-05-10 08:33] LABS: Blood Urea Nitrogen 13.6 mg/dL (9.0-27.0); Carbon Dioxide 21.6 mmol/L (21.6-31.8); Chloride 110 mmol/L (96-109); Glucose 76 mg/dL (70-110); Potassium 4.3 mmol/L (3.5-5.5); Sodium 140 mmol/L (135-145)
--- NOTE | 2024-05-10 08:35 | P.CNNES ---
History of Present Illness Consult date: 05/09/24 Requesting physician: Mio Ornelas Reason for Consult: Change in mentation History of Present Illness: Patient is a 83-year-old male came to the hospital by ambulance yesterday at 11:06 AM. As per EMS flowsheet, it was reported patient had sudden onset of aphasia. Patient has history of Lewy body dementia and has some confusion issues but is normally able to talk and answer most questions. Today while sit ting at the table with some family, he suddenly stopped communicating and could not talk. When EMS arrived, patient's eyes were open but he would not respond or make eye contact even with painful stimuli. His blood glucose was 186 at that time. He could not follow commands and was not moving his arms. He was transferred to [facility] for possible CVA. Patient's blood pressure was 132/65, pulse rate 78 respiration 20 saturation 97%. Patient's and patient's daughter were present by the bedside at this time. They mention that yesterday morning he got dressed, cleaned up, and then had merced akfast including egg, toast and juice. He was otherwise acting fine. Suddenly he started morning, and his arms stiffened up and curled his arms tightly across his chest and his fist was tight in the ged instructor. Patient's grandson was also present at that time, who tried to loosen his arm but he would not let go. Therefore patient's called 911. Patient's believes that even now he is not talking right. Patient's primary physician has diagnosed him with Lewy body dementia. Patient has history of orthostatic hypotension for which he has been on midodrine. Lately his blood pressure has been running high as well. Blood test shows normal WBC hemoglobin 9.2, platelets are normal. CMP is normal. Influenza, RSV and coronavirus PCR negative. UA is completely normal. CT head showed no acute intracranial process. I personally reviewed CT head, agree with the findings. It does reveal generalized brain atrophy. No hydrocephalus. Chest x-ray showed no acute cardiopulmonary process. EKG shows sinus rhythm. Patient's last A1c 6.6 on 04/03/2024, B12 475, folate 7.10, Patient has been seen by myself on 03/16/2024 for hallucinations. It was felt related to acute delirium. He was dehydrated with acute kidney injury at that time. Patient also had orthostatic hypotension, and was recommended midodrine. Patient's states he is currently taking aspirin 81 mg daily at home, although not listed in his home medication list. He does take Lipitor 80 mg daily. Midodrine 5 mg 3 times a day, folic acid 1 mg, thiamine, Sinemet 25/100 3 times a day, Janumet, levothyroxine and Flomax. Review of Systems Other pertinent positive and negative review of systems mentioned in the HPI. ROS unobtainable: due to mental status Past Medical History Past Medical History: Dementia, Diabetes Mellitus, Eye Disorder, Hyperlipidemia, Hypertension, Prostate Disorder, Thyroid Disorder Additional Past Medical History / Comment(s): Bilateral cataracts, enlarged prostate. History of Any Multi-Drug Resistant Organisms: None Reported Past Surgical History: Heart Catheterization With Stent, Joint Replacement Additional Past Surgical History / Comment(s): 3 colonoscopies, cardiac stents X2, R hip replacement 12/2018 Past Anesthesia/Blood Transfusion Reactions: No Reported Reaction, Motion Sickness Date of Last Stent Placement:: 11/08/2017 Past Psychological History: No Psychological Hx Reported Smoking Status: Never smoker Past Alcohol Use History: None Reported Past Drug Use History: None Reported - Past Family History Father Family Medical History: Cancer Medications and Allergies Home Medications Medication Instructions Recorded Confirmed Type Levothyroxine Sodium [Synthroid] 75 mcg PO DAILY@0800 08/05/17 05/08/24 History Tamsulosin [Flomax] 0.4 mg PO HS@2100 08/05/17 05/08/24 History sitaGLIPtin PHOS/metFORMIN HCL 1 tab PO BID@0800,1700 04/23/22 05/08/24 History [Janumet 50-500 mg Tablet] Calcium Carbonate [Calcium] 300 mg PO BID@0800,1700 03/15/24 05/08/24 History Carbidopa-Levodopa 25-100 mg 1 tab PO TID@0800,1200,1700 03/15/24 05/08/24 History [Sinemet 25-100 mg] Metoprolol Succinate [Metoprolol 12.5 mg PO BID@0800,1700 03/15/24 05/08/24 History Succinate ER] [place]-3/Dha/Epa/Fish Oil [Fish Oil 1 cap PO DAILY@0800 03/15/24 05/08/24 History 1,000 mg Softgel] Docusate [Colace] 100 mg PO BID@0800,1700 03/24/24 05/08/24 History Folic Acid 1 mg PO DAILY@0800 03/24/24 05/08/24 History Multivitamins, Thera [Multivitamin 1 tab PO DAILY@0800 03/24/24 05/08/24 History (formulary)] Nystatin 100,000Unit/gm Cream 1 applic TOPICAL TID@0800,1200,1700 03/24/24 05/08/24 History [Mycostatin Cream] Thiamine [Vitamin B-1] 100 mg PO BID@0800,1700 03/24/24 05/08/24 History Atorvastatin [Lipitor] 80 mg PO HS@2100 05/08/24 05/08/24 History Midodrine HCl [ProAmantine] 5 mg PO TID@0800,1200,1700 05/08/24 05/08/24 History Allergies Allergy/AdvReac Type Severity Reaction Status Date / Time No Known Allergies Allergy Verified 05/08/24 12:25 Physical Examination - Vital Signs Vital Signs: Vital Signs Temp Pulse Pulse Resp BP BP Pulse Ox 05/09/24 12:57 98.3 F 84 18 157/75 05/09/24 07:15 97.9 F 90 17 163/73 97 05/09/24 02:00 98.2 F 80 145/70 95 05/08/24 20:00 97.6 F 73 182/89 98 05/08/24 18:27 98.1 F 75 17 171/74 96 05/08/24 17:20 97.1 F L 73 18 181/85 97 05/08/24 16:00 73 16 170/79 98 Intake and Output 05/09/24 05/09/24 05/09/24 06:59 14:59 22:59 Output Total 450 Balance -450 Output: Urine 450 Patient is an elderly male, laying in the bed, in no acute distress. Patient is encephalopathic, slow mentation, delayed response. Patient able to name objects like "ballpoint pen", glasses, ear. He is able to repeat. Patient not able to name his and says "[place]". Speech is very raspy from dry mouth. Sometimes he mumbles, difficult to understand. Attention, concentration and fund of knowledge are all severely limited. On cranial nerve examination, pupils are equal, round and reacting to light, visual liang are full on confrontation, could not test reliably for neglect. Extraocular muscles are intact with no nystagmus. Face is symmetric, tongue protrudes to the midline. Palatal elevation and sensation normal, hearing is decreased and shoulder shrug normal, facial sensation normal. On muscle strength testing, there is no pronator drift and the strength is venus l in arms and legs distally and proximally, except right deltoid, which is weak from chronic shoulder issues. Deep tendon reflexes are symmetric very diminished and plantars are downgoing. Sensory to touch is equal with no neglect on double simultaneous stimulation. Cerebellar function showed no ataxia for hypidm-ev-indr testing. Tone is increased mild to moderately bilaterally in the arms. The bulk of muscles normal. Gait deferred.. On general examination, there is no carotid bruit or murmur, S1-S2 audible. Chest is clear on consultation. Abdomen is soft nontender. No organomegaly, bowel sounds present. Peripheral pulses are present. No peripheral edema. Results - Laboratory Findings CBC and BMP: 05/10/24 03:36 05/10/24 03:36 Abnormal Lab Findings: Abnormal Labs 05/08/24 05/08/24 05/08/24 11:11 11:13 11:13 RBC 3.31 L Hgb 10.1 L Hct 31.3 L MCH Eosinophils # Sodium 134 L BUN 21 H Glucose 150 H POC Glucose (mg/dL) 155 H Calcium 8.1 L Total Protein 5.9 L Albumin 3.0 L Albumin/Globulin Ratio 05/08/24 05/09/24 05/09/24 19:56 03:31 03:31 RBC 2.87 L Hgb 9.2 L Hct 26.8 L MCH 32.1 H Eosinophils # 0.72 H Sodium BUN Glucose POC Glucose (mg/dL) 132 H Calcium 8.0 L Total Protein 5.2 L Albumin 2.9 L Albumin/Globulin Ratio 1.26 L Assessment and Plan Assessment: * Acute episode of encephalopathy, speech difficulty and unresponsiveness. Rule out TIA versus seizure. Probable metabolic encephalopathy. 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 * Diabetes * Hypertension * Hyperlipidemia Plan: * Patient will undergo workup for TIA. * 2-D echo to rule out embolic source * Carotid Doppler, rule out stenosis * Fasting a.m. lipid panel, cholesterol 134, LDL 73, HDL 35 and triglycerides 122. Continue Lipitor 80 mg daily (home dose). * Hemoglobin A1c 6.6, diabetes well controlled * EEG rule out epileptiform activity * Optimize control of blood pressure. * Patient on midodrine 5 mg 3 times a day for orthostatic hypotension. * Resume aspirin 81 mg daily. Patient will receive loading dose of aspirin 324 mg 1 today. * Continue Sinemet 25/100 3 times a day. * B12 475, folate 7.10. Patient on folate replacement. TSH is normal 1.80. Ammonia 11. * Neuro checks every 4 hours. * Telemetry monitoring rule out any arrhythmia * PT, OT, speech therapy * DVT prophylaxis: Heparin 5000 units subcu every 8 hours * Neurology will continue to follow. Discussed with family members in detail. Thank you for the consult. Time with Patient: Greater than 30
--- NOTE | 2024-05-10 10:27 | CA ---
Transthoracic Echo Report Name: Nico Holman Age: 83 Gender: M : 1940 Exam Date: 05/10/2024 08:23 Exam Location: [place] [facility] Ht (in): 72 Wt (lb): 172 Ordering Physician: Kaushal Mishra MD Attending/Referring Phys: Skip Miner Yamila Pickard RDCS Procedure CPT: Indications: TIA, ams Cardiac Hx: Technical Quality: Good Contrast 1: Total Dose (mL): Contrast 2: Total Dose (mL): MEASUREMENTS (Male / Female) Normal Values 2D ECHO LV Diastolic Diameter PLAX 4.7 cm 4.2 - 5.9 / 3.9 - 5.3 cm LV Systolic Diameter PLAX 3.3 cm IVS Diastolic Thickness 0.9 cm 0.6 - 1.0 / 0.6 - 0.9 cm LVPW Diastolic Thickness 1.0 cm 0.6 - 1.0 / 0.6 - 0.9 cm LV Relative Wall Thickness 0.4 LVOT Diameter 2.4 cm LV Diastolic Volume MOD BP 123.0 cm??? 67 - 155 / 56 - 104 cm??? LV Systolic Volume MOD BP 55.1 cm??? 22 - 58 / 19 - 49 cm??? LV Ejection Fraction MOD BP 55.2 % >= 55 % LV Cardiac Index MOD BP 2214.8 cm???/min???m??? LV Diastolic Volume MOD 4C 124.2 cm??? LV Systolic Volume MOD 4C 52.2 cm??? LV Ejection Fraction MOD 4C 58.0 % LV Cardiac Index MOD 4C 2350.8 cm???/min???m??? LV Diastolic Length 4C 8.4 cm LV Systolic Length 4C 6.7 cm LV Diastolic Volume MOD 2C 121.4 cm??? LV Systolic Volume MOD 2C 53.3 cm??? LV Ejection Fraction MOD 2C 56.1 % LV Cardiac Index MOD 2C 2221.3 cm???/min???m??? LV Diastolic Length 2C 8.4 cm LV Systolic Length 2C 7.3 cm LA Volume 84.8 cm??? 18 - 58 / 22 - 52 cm??? LA Volume Index 42.6 cm???/m??? 16 - 28 cm???/m??? DOPPLER AV Peak Velocity 117.3 cm/s AV Peak Gradient 5.5 mmHg AV Mean Velocity 78.3 cm/s AV Mean Gradient 2.7 mmHg AV Velocity Time Integral 27.6 cm LVOT Peak Velocity 89.2 cm/s LVOT Peak Gradient 3.2 mmHg LVOT Velocity Time Integral 20.6 cm LVOT Stroke Volume 89.6 cm??? LVOT Stroke Volume Index 44.9 ml/m??? LVOT Cardiac Index 2924.5 cm???/min???m??? AV Area Cont Eq vti 3.3 cm??? AV Area Cont Eq pk 3.3 cm??? MV Area PHT 5.9 cm??? Mitral E Point Velocity 57.9 cm/s Mitral A Point Velocity 53.4 cm/s Mitral E to A Ratio 1.1 MV Deceleration Time 128.6 ms TR Peak Velocity 287.7 cm/s TR Peak Gradient 33.1 mmHg Right Atrial Pressure 10.0 mmHg Pulmonary Artery Systolic Pressu 43.1 mmHg Right Ventricular Systolic Press 43.1 mmHg PV Peak Velocity 95.7 cm/s PV Peak Gradient 3.7 mmHg FINDINGS Left Ventricle Left ventricular ejection fraction is estimated at 55 %. Left ventricular cavity size normal. Left ventricular wall thickness normal. No obvious regional wall motion abnormalities. Right Ventricle Normal right ventricular size. Normal right ventricular global systolic function. Right Atrium Normal right atrial size. Left Atrium Severely increased left atrial volume. Mildly increased left atrial area. Mitral Valve Structurally normal mitral valve. No evidence for mitral valve prolapse. No mitral stenosis. Trace to mild mitral regurgitation. Aortic Valve Trileaflet aortic valve. No aortic valve stenosis or regurgitation. Tricuspid Valve Structurally normal tricuspid valve. No tricuspid stenosis. Trace to mild tricuspid regurgitation. Pulmonic Valve Pulmonic valve not well visualized. No pulmonic stenosis. No pulmonic regurgitation. Pericardium No pericardial effusion. Aorta Normal size aortic root and proximal ascending aorta. CONCLUSIONS Indication: CVA/TIA Normal LV size and function No intracardiac masses Left atrial enlargement No significant valvular abnormalities Previewed by: Dr. Kurt Orozco MD (Electronically Signed) Final Date: 10 May 2024 10:27
[2024-05-10 11:49] LABS: Glucose,Whole Blood 109 mg/dL (70-110)
[2024-05-10 16:48] LABS: Glucose,Whole Blood 124 mg/dL (70-110)
[2024-05-10] MEDS: CALCIUM CARB-VIT D 500 MG-5 MCG TAB PO SCH (17:59)
[2024-05-10] MEDS: DOCUSATE ORAL SOLN 100 MG/10 ML CUP PO SCH (18:49)
[2024-05-10 19:47] LABS: Glucose,Whole Blood 160 mg/dL (70-110)
[2024-05-10] MEDS: HEPARIN SODIUM,PORCINE 5,000 UNIT/ML 1 ML VIAL SQ SCH (21:56)
--- NOTE | 2024-05-10 22:52 | PN ---
PROGRESS NOTE DATE OF SERVICE: 05/10/2024 SUBJECTIVE: This is an 83-year-old gentleman admitted with change in mental status for metabolic encephalopathy of undetermined origin, is being closely monitored at this time. The patient was in the rehab recently. No chest pain. No palpitation. OBJECTIVE: VITAL SIGNS: Pulse is 62, blood pressure 164/70, respirations 17. GENERAL: The patient is confused. CHEST: Clear to auscultation. CARDIOVASCULAR: S1, S2. ABDOMEN: Soft. NERVOUS SYSTEM: Diffusely weak. LABORATORY DATA: Reviewed. Calcium is 8.8. ASSESSMENT: 1. Change in mental status with possible acute metabolic encephalopathy of undetermined origin. 2. Lewy body dementia. 3. Mild hypocalcemia. 4. Diabetes mellitus, type 2. 5. Hypertension. 6. Hyperlipidemia. 7. Multiple medical problems. RECOMMENDATIONS: Recommended to continue current management and continue symptomatic treatment. PT, OT evaluation, possible ECF rehab. I would also recommend calcium supplementation. Repeat calcium evaluation. Further recommendations to follow. MMODL / IJN: [id number] /
--- NOTE | 2024-05-10 23:52 | EEG ---
ELECTROENCEPHALOGRAM REPORT PREAMBLE: This is an 83-year-old male with episode of altered mental status. Rule out TIA versus seizure. EEG FINDINGS: This is a 21-channel digital EEG recorded with video component, utilizing 10/20 international system with referential and bipolar montages. The recording starts and continues with presence of mixed frequencies of predominantly 5 to 6 hertz theta intermixed with some 2 to 3 hertz delta activity in bihemispheric region. Background does not seem to be reactive to eye opening or closing. Photic driving response was not seen. Different stages of sleep were not seen. No focal or generalized epileptiform activity was seen. IMPRESSION: This is an abnormal EEG due to background slowing of moderate degree. This is suggestive of generalized cerebral dysfunction as can be seen with toxic metabolic encephalopathy or related to diffuse structural brain abnormality. Clinical correlation is recommended. No epileptiform activity was seen. MMODL / IJN: [id number] /
[2024-05-11 06:32] LABS: Glucose,Whole Blood 113 mg/dL (70-110)
--- NOTE | 2024-05-11 07:31 | P.PN ---
Subjective Progress Note Date: 05/10/24 Patient was seen for follow-up. Patient is sitting comfortably in the recliner. Patient's was also present by the bedside. He is doing a lot better. Objective - Vital Signs Vital signs: Vital Signs Temp 98.8 F 05/10/24 13:31 Pulse 62 05/10/24 13:31 Resp 17 05/10/24 13:31 BP 164/79 05/10/24 13:31 Pulse Ox 96 05/10/24 13:31 FiO2 Intake & Output 05/09/24 05/10/24 05/10/24 18:59 06:59 18:59 Intake Total 900 250 Output Total 200 Balance 900 250 -200 Intake: Intake, IV Titration 900 Amount Sodium Chloride 0.9% 1, 900 000 ml @ 75 mls/hr IV . [id number] [facility] Rx#:[id number] Oral 250 Output: Urine 200 Other: Voiding Method Incontinent Diaper External Catheter # Voids 2 2 - Exam Patient is sitting comfortably in the recliner. Mentation is much improved. He knows it is May and is 2024. He is remembering got more. Knows name was his Kathie. Patient was able to recall name of the [facility], but not the city. Patient can name all objects presented and can repeat very well. Patient is less delayed in responding and speaking very clearly, with no mumblin g. Muscle strength is normal. Tone is increased mild to moderately bilaterally in the arms. Patient is bradykinetic. No tremors noted. - Labs CBC & Chem 7: 05/10/24 03:36 05/10/24 03:36 Labs: Abnormal Lab Results - Last 24 Hours (Table) 05/10/24 05/10/24 05/10/24 Range/Units 03:36 03:36 16:47 RBC 3.03 L (4.40-5.60) X 10*6/uL Hgb 9.5 L (13.0-17.0) g/dL Hct 29.3 L (39.6-50.0) % Eosinophils # 0.65 H (0.04-0.35) X 10*3/uL NRBC/100 WBC Diff 0.03 H (0.00-0.01) X 10*3/uL Chloride 110 H (96-109) mmol/L POC Glucose (mg/dL) 124 H (70-110) mg/dL Calcium 8.0 L (8.7-10.3) mg/dL Microbiology - Last 24 Hours (Table) 05/08/24 14:10 Blood Culture - Preliminary Blood Assessment and Plan Assessment: * Acute episode of encephalopathy, speech difficulty and unresponsiveness. Rule out TIA versus seizure. Probable metabolic encephalopathy. 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 * Diabetes * Hypertension * Hyperlipidemia Plan: * Patient will undergo workup for TIA. * 2-D echo revealed normal LV size and EF of 55%. No obvious regional wall motion abnormalities. Severely increased left atrial volume. Normal right atrial size. No significant valvular abnormalities. * Carotid Doppler, revealed less than 50% stenosis in either ICA. Antegrade flow in the left vertebral artery. Right vertebral artery not seen. * Fasting a.m. lipid panel, cholesterol 134, LDL 73, HDL 35 and triglycerides 122. Continue Lipitor 80 mg daily (home dose). * Hemoglobin A1c 6.6, diabetes well controlled * EEG was abnormal due to background slowing of moderate degree. This is suggestive of generalized cerebral dysfunction as can be seen in toxic metabolic encephalopathy or related to diffuse structural brain abnormality. Clinical correlation is recommended. No epileptiform activity was seen. * Optimize control of blood pressure. * Patient on midodrine 5 mg 3 times a day for orthostatic hypotension. * Resume aspirin 81 mg daily. Patient has received loading dose of aspirin 324 mg 1 today. * Continue Sinemet 25/100 3 times a day. * B12 475, folate 7.10. Patient on folate replacement. TSH is normal 1.80. Ammonia 11. * Neuro checks every 4 hours. * Telemetry monitoring rule out any arrhythmia * PT, OT * DVT prophylaxis: Heparin 5000 units subcu every 8 hours * May need transfer to rehab.
[2024-05-11 08:43] LABS: BUN/Creat Ratio 15.22 Ratio (12.00-20.00); Blood Urea Nitrogen 13.7 mg/dL (9.0-27.0); Calcium 8.1 mg/dL (8.7-10.3); Carbon Dioxide 22.7 mmol/L (21.6-31.8); Chloride 109 mmol/L (96-109); Glucose 103 mg/dL (70-110); Potassium 4.2 mmol/L (3.5-5.5); Sodium 140 mmol/L (135-145)
[2024-05-11 08:47] LABS: Basophils # (A) 0.03 X 10*3/uL (0.00-0.10); Basophils % (A) 0.4 %; Eosinophils # (A) 0.84 X 10*3/uL (0.04-0.35); Eosinophils % (A) 11.1 %; HCT 28.3 % (39.6-50.0); HGB 9.3 g/dL (13.0-17.0); Lymphocytes % (A) 17.2 %; MCHC 32.9 g/dL (32.0-37.0); MCV 94.3 FL (80.0-97.0); Mean Platelet Volume 9.9 FL (9.5-12.2); Monocytes # (A) 0.74 X 10*3/uL (0.20-1.00); Monocytes % (A) 9.8 %; NRBC Per 100 WBC 0 X 10*3/uL (0.00-0.01); Neutrophils % (A) 61.1 %; Platelet Count 191 X 10*3/uL (140-440); WBC 7.54 X 10*3/uL (4.50-10.00)
[2024-05-11 10:56] VITALS: RESP 18
[2024-05-11 11:34] LABS: Glucose,Whole Blood 132 mg/dL (70-110)
[2024-05-11 13:42] VITALS: BP 172/77; PULSE 68; TEMP 97.9
== END 2024-05-11 15:38 | disposition home health service (06) | DRG 71 ==
LOC: EC 11:06 → 6NMEDSUR 12:31 → OBSVTOIN 12:31 → 4SSUR 14:55
PROVIDERS: ADMIT Hospitalist; ATTEND Hospitalist
PROC: 4A10X4Z Monitoring of Central Nervous Electrical Activity, External Approach (ICD-10-PCS; principal; 2024-05-10)
DX: G93.41 Metabolic encephalopathy (principal); F02.82 Dementia in other diseases classified elsewhere, unspecified severity, with psychotic disturbance; G20.A1 Parkinson's disease without dyskinesia, without mention of fluctuations; E83.51 Hypocalcemia; E11.9 Type 2 diabetes mellitus without complications; I10 Essential (primary) hypertension; N17.9 Acute kidney failure, unspecified; R47.01 Aphasia; G31.83 Neurocognitive disorder with Lewy bodies; I95.1 Orthostatic hypotension; M48.02 Spinal stenosis, cervical region; R29.6 Repeated falls; E78.5 Hyperlipidemia, unspecified; M50.31 Other cervical disc degeneration, high cervical region; I25.10 Atherosclerotic heart disease of native coronary artery without angina pectoris; Z95.5 Presence of coronary angioplasty implant and graft; E86.0 Dehydration; N40.0 Benign prostatic hyperplasia without lower urinary tract symptoms; Z98.42 Cataract extraction status, left eye; Z98.41 Cataract extraction status, right eye; Z96.641 Presence of right artificial hip joint; Z79.890 Hormone replacement therapy; Z79.899 Other long term (current) drug therapy
CPT/HCPCS: 36415; 70450; 71045; 80048; 80053; 80306; 81003; 84484; 85025; 85610; 85730; 87040; 87636; 93005; 93306; 93880; 95816; 96360; 96361; 99285

== ENCOUNTER 2024-05-22 17:36 | Inpatient (IN) | payer MEDICARE ==
--- NOTE | 2024-05-22 18:15 | ED ---
General Adult HPI - General Source: EMS, RN notes reviewed, old records reviewed Mode of arrival: EMS Limitations: no limitations <Tomy Adams - Last Filed: 05/22/24 20:57> - General Source: EMS, RN notes reviewed, old records reviewed Mode of arrival: EMS Limitations: altered mental status, physical limitation - History of Present Illness Consistency: constant Improves with: none Worsens with: none Associated Symptoms: confusion Treatments Prior to Arrival: none <Tomy Valera - Last Filed: 05/23/24 21:19> - General Chief complaint: Neuro Symptoms/Deficit Stated complaint: Possible TIA Time Seen by Provider: 05/22/24 17:50 - History of Present Illness Initial comments: This is an 84-year-old male who presents to the emergency department with a past medical history significant for Lewy body dementia. Patient was sent in by the because he had an episode yesterday and today where he stopped speaking and was unable to talk but since then he has not been back to his baseline. He reports that we got stated that his normal baseline is very mumbled speech but earlier he was not even trying to speak. We have no further history because no caregiver or family members with the patient and patient himself is unable to give any further history (Tomy Adams) This is an 84 male with underlying Lewy body dementia coming in for agitation altered mental status not speaking clearly, on evaluation here in the ER patient is unable to provide any significant history and does appear to be having a consistent cough clearing his throat and agitated (oTmy Valera) - Related Data Home Medications Medication Instructions Recorded Confirmed Levothyroxine Sodium [Synthroid] 75 mcg PO DAILY@0800 08/05/17 05/23/24 Tamsulosin [Flomax] 0.4 mg PO HS@2100 08/05/17 05/23/24 sitaGLIPtin PHOS/metFORMIN HCL 1 tab PO BID@0800,1700 04/23/22 05/23/24 [Janumet 50-500 mg Tablet] Carbidopa-Levodopa 25-100 mg 1 tab PO TID@0800,1200,1700 03/15/24 05/23/24 [Sinemet 25-100 mg] Metoprolol Succinate [Metoprolol 12.5 mg PO BID@0800,1700 03/15/24 05/23/24 Succinate ER] [place]-3/Dha/Epa/Fish Oil [Fish Oil 1 cap PO DAILY@0800 03/15/24 05/23/24 1,000 mg Softgel] Docusate [Colace] 100 mg PO BID@0800,1700 03/24/24 05/23/24 Folic Acid 1 mg PO DAILY@0800 03/24/24 05/23/24 Multivitamins, Thera [Multivitamin 1 tab PO DAILY@0800 03/24/24 05/23/24 (formulary)] Nystatin 100,000Unit/gm Cream 1 applic TOPICAL TID@0800,1200,1700 03/24/24 05/23/24 [Mycostatin Cream] Thiamine [Vitamin B-1] 100 mg PO BID@0800,1700 03/24/24 05/23/24 Atorvastatin [Lipitor] 80 mg PO HS@2100 05/08/24 05/23/24 Midodrine HCl [ProAmantine] 2.5 mg PO TID@0800,1200,1700 05/08/24 05/23/24 Previous Rx's Medication Instructions Recorded Aspirin 81 mg PO DAILY #30 tab 05/11/24 Calcium Carb-Vit D 500Mg-5Mcg 1 each PO BID-W/MEALS #60 tab 05/11/24 [Oscal 500+D 5 Mcg (200 Iu)] Doxazosin [Cardura] 2 mg PO DAILY #30 tab 05/11/24 Allergies Allergy/AdvReac Type Severity Reaction Status Date / Time No Known Allergies Allergy Verified 05/23/24 12:23 Review of Systems ROS Other: All systems not noted in ROS Statement are negative. <Tomy Adams - Last Filed: 05/22/24 20:57> ROS Other: All systems not noted in ROS Statement are negative. <Tomy Valera - Last Filed: 05/23/24 21:19> ROS Statement: Those systems with pertinent positive or pertinent negative responses have been documented in the HPI. Past Medical History Past Medical History: Dementia, Diabetes Mellitus, Eye Disorder, Hyperlipidemia, Hypertension, Prostate Disorder, Thyroid Disorder Additional Past Medical History / Comment(s): Bilateral cataracts, enlarged prostate. History of Any Multi-Drug Resistant Organisms: None Reported Past Surgical History: Heart Catheterization With Stent, Joint Replacement Additional Past Surgical History / Comment(s): 3 colonoscopies, cardiac stents X2, R hip replacement 12/2018 Past Anesthesia/Blood Transfusion Reactions: No Reported Reaction, Motion Sickness Date of Last Stent Placement:: 11/08/2017 Past Psychological History: No Psychological Hx Reported Smoking Status: Never smoker Past Alcohol Use History: None Reported Past Drug Use History: None Reported - Past Family History Father Family Medical History: Cancer <Tomy Adams - Last Filed: 05/22/24 20:57> General Exam Limitations: no limitations <Tomy Adams - Last Filed: 05/22/24 20:57> Limitations: altered mental status, physical limitation General appearance: alert, anxious, lethargic, obtunded Head exam: Present: atraumatic, normocephalic, normal inspection Eye exam: Present: normal appearance, PERRL, EOMI. Absent: scleral icterus, conjunctival injection, periorbital swelling ENT exam: Present: normal exam, mucous membranes moist Neck exam: Present: normal inspection. Absent: tenderness, meningismus, lymphadenopathy Respiratory exam: Present: normal lung sounds bilaterally. Absent: respiratory distress, wheezes, rales, rhonchi, stridor Cardiovascular Exam: Present: regular rate, normal rhythm, normal heart sounds. Absent: systolic murmur, diastolic murmur, rubs, gallop, clicks GI/Abdominal exam: Present: soft, normal bowel sounds. Absent: distended, tenderness, guarding, rebound, rigid Extremities exam: Present: normal inspection, full ROM, normal capillary refill. Absent: tenderness, pedal edema, joint swelling, calf tenderness Back exam: Present: normal inspection Neurological exam: Present: alert, oriented X3, CN II-XII intact Psychiatric exam: Present: normal affect, normal mood Skin exam: Present: warm, dry, intact, normal color. Absent: rash <Tomy Valera - Last Filed: 05/23/24 21:19> - General Exam Comments Initial Comments: GENERAL: Patient is well-developed and well-nourished. Patient is nontoxic and well- hydrated and is in no acute distress. ENT: Neck is soft and supple. No significant lymphadenopathy is noted. Oropharynx is clear. Moist mucous membranes. Neck has full range of motion without eliciting any pain. EYES: The sclera were anicteric and conjunctiva were pink and moist. Extraocular movements were intact and pupils were equal round and reactive to light. Eyelids were unremarkable. PULMONARY: Unlabored respirations. Good breath sounds bilaterally. No audible rales rhonchi or wheezing was noted. CARDIOVASCULAR: There is a regular rate and rhythm without any murmurs gallops or rubs. ABDOMEN: Soft and nontender with normal bowel sounds. SKIN: Skin is clear with no lesions or rashes and otherwise unremarkable. NEUROLOGIC: Patient is alert and oriented on to assess orientation. MUSCULOSKELETAL: Normal extremities with adequate strength and full range of motion. LYMPHATICS: No significant lymphadenopathy is noted PSYCHIATRIC: Unable to assess since patient does not answer our questions (Tomy Adams) Course <Tomy Valera - Last Filed: 05/23/24 21:19> Vital Signs 05/22/24 05/22/24 05/22/24 17:42 18:34 20:34 Temperature 97.7 F Pulse Rate 77 78 81 Respiratory 20 19 19 Rate Blood Pressure 128/78 151/77 129/77 O2 Sat by Pulse 97 97 96 Oximetry 05/22/24 05/22/24 05/22/24 21:50 21:52 23:00 Temperature 98.9 F Pulse Rate 78 77 80 Respiratory 20 20 20 Rate Blood Pressure 113/80 113/80 150/79 O2 Sat by Pulse 96 96 98 Oximetry 05/23/24 00:29 Temperature Pulse Rate 75 Respiratory 13 Rate Blood Pressure 135/77 O2 Sat by Pulse 95 Oximetry - Reevaluation(s) Reevaluation #1: 05/22/24 22:45 Medical records reviewed Prior hospitalizations reviewed including what appears to be full admission for similar symptoms unknown cause (Tomy Valera) Reevaluation #2: 05/22/24 22:46 Family is not at bedside currently (Tomy Valera) Reevaluation #3: 05/22/24 22:46 Patient does not appear to be showing any improvement in symptoms does appear more agitated (Tomy Valera) Reevaluation #4: Differential Altered Mental Status: Hypoglycemia, DKA, hypercapnia, ETOH, overdose, CO poisoning, trauma, myxedema coma, HTN encephalopathy, infection, encephalitis, psychosis, intercranial hemorrhage, hepatic encephalopathy, meningitis, CVA, this is not meant to be an all-inclusive list (Tomy Valera) - Consultations Consultation #1: Spoke with [facility] regarding admission and they are agreeable (Tmoy Valera) Medical Decision Making - Lab Data Result diagrams: 05/22/24 18:27 <Tomy Adams - Last Filed: 05/22/24 20:57> - Lab Data Result diagrams: 05/23/24 02:43 05/23/24 02:43 - Radiology Data Radiology results: report reviewed (CT brain CT angio head neck chest x-ray negative for acute disease, CT abdomen and pelvis negative for acute disease), image reviewed <Tomy Valera - Last Filed: 05/23/24 21:19> - Medical Decision Making EKG is interpreted by myself. EKG shows a sinus rhythm at 80 bpm QRS is 86 QT interval is 374 QTc is 410. GA interval is 120 Was pt. sent in by a medical professional or institution (, PA, DECAL APPLIER, urgent care, hospital, or alf...) When possible be specific @ -[No] Did you speak to anyone other than the patient for history (EMS, parent, family, police, friend...)? What history was obtained from this source @ -[No] Did you review nursing and triage notes (agree or disagree)? Why? @ -[I reviewed and agree with nursing and triage notes] Were old charts reviewed (outside hosp., previous admission, EMS record, old EKG, old radiological studies, urgent care reports/EKG's, alf records)? Report findings @ -[No old charts were reviewed] Differential Diagnosis? @ -Differential Altered Mental Status: Hypoglycemia, DKA, hypercapnia, ETOH, overdose, CO poisoning, trauma, myxedema coma, HTN encephalopathy, infection, encephalitis, psychosis, intercranial hemorrhage, hepatic encephalopathy, meningitis, CVA, this is not meant to be an all-inclusive list EKG interpreted by me (3pts min.). @ -[As above] X-rays interpreted by me (1pt min.). @ -[None done] CT interpreted by me (1pt min.). @ -[None done] U/S interpreted by me (1pt. min.). @ -[None done] What testing was considered but not performed or refused? (CT, X-rays, U/S, labs)? Why? @ -[None] What meds were considered but not given or refused? Why? @ -[None] Did you discuss the management of the patient with other professionals (professionals i.e. , PA, DECAL APPLIER, lab, RT, psych nurse, social work assistant, u.s. commissioner, teacher, staff readiness officer, case repairer)? Give summary @ -[No] Was smoking cessation discussed for >3mins.? @ -[No] Was critical care preformed (if so, how long)? @ -[No] Were there social determinants of health that impacted care today? How? (Homelessness, low income, unemployed, alcoholism, drug addiction, t ransportation, low edu. Level, literacy, decrease access to med. care, residential, rehab)? @ -[No] Was there de-escalation of care discussed even if they declined (Discuss DNR or withdrawal of care, Hospice)? DNR status @ -[No] What co-morbidities impacted this encounter? (DM, HTN, Smoking, COPD, CAD, Can cer, CVA, ARF, Chemo, Hep., AIDS, mental health diagnosis, sleep apnea, morbid obesity)? @ -[None] Was patient admitted / discharged? Hospital course, mention meds given and route, prescriptions, significant lab abnormalities, going to OR and other pertinent info. @ -Patient came in no family or caregiver was with him EMS told us that he was back to his baseline however when family arrived they indicated to me that this was completely not his baseline and his mumbled speech was not at all his ba seline he normally is clear and speaking and they say this started at about 7 AM this morning. They fear that the patient may have aspirated. Dr. Valera will be taking over the care of this patient at 9 PM (Tomy Adams) 84 male with persistently altered mental status, patient does appear to be constantly making gurgling versus coughing type sounds unable to speak much more than that, he does feel uncomfortable he does seem uncomfortable and agitated, patient will be admitted for further supportive care unsure of cause of symptoms could be underlying dementia versus prior history of encephalopathy which has been admitted to before. Normal CT scans here in the ER normal lab testing here in the ER (Tomy Valera) - Lab Data Lab Results 05/22/24 05/22/24 05/22/24 Range/Units 18:27 18:27 19:37 WBC 10.05 H (4.50-10.00) 10*3/uL RBC 3.03 L (4.40-5.60) 10*6/uL Hgb 9.7 L (13.0-17.0) g/dL Hct 28.5 L (39.6-50.0) % MCV 94.1 (80.0-97.0) fL MCH 32.0 (27.0-32.0) pg MCHC 34.0 (32.0-37.0) g/dL Plt Count 171 (140-440) 10*3/uL MPV 10.9 (9.5-12.2) fL Immature Gran % (Auto) 0.2 % Neutrophils % 67.9 % Lymphocytes % 11.4 % Monocytes % 9.9 % Eosinophils % 10.2 % Basophils % 0.4 % Immature Gran # 0.02 (0.00-0.04) 10*3/uL Neutrophils # 6.82 (1.80-7.70) 10*3/uL Lymphocytes # 1.15 (0.90-5.00) 10*3/uL Monocytes # 0.99 (0.20-1.00) 10*3/uL Eosinophils # 1.03 H (0.04-0.35) 10*3/uL Basophils # 0.04 (0.00-0.10) 10*3/uL PT 12.0 (10.0-12.5) sec INR 1.1 (<1.2) APTT 24.3 (22.0-30.0) sec VBG pH (7.31-7.41) VBG pCO2 (37-51) mmHg VBG HCO3 (24-28) mmol/L Sodium (137-145) mmol/L Potassium (3.5-5.1) mmol/L Chloride (98-107) mmol/L Carbon Dioxide (22-30) mmol/L Anion Gap mmol/L BUN (9-20) mg/dL Creatinine (0.66-1.25) mg/dL Est GFR (CKD-EPI)AfAm (>60 ml/min/1.73 sqM) Est GFR (CKD-EPI)NonAf (>60 ml/min/1.73 sqM) Glucose (74-99) mg/dL Plasma Lactic Acid Iban (0.7-2.0) mmol/L Calcium (8.4-10.2) mg/dL Total Bilirubin (0.2-1.3) mg/dL AST (17-59) U/L ALT (4-49) U/L Alkaline Phosphatase (38-126) U/L Creatine Kinase (55-170) U/L Troponin I (0.000-0.034) ng/mL Total Protein (6.3-8.2) g/dL Albumin (3.5-5.0) g/dL Urine Color Yellow Urine Appearance Clear (Clear) Urine pH 6.5 (5.0-8.0) Ur Specific [place] 1.017 (1.001-1.035) Urine Protein Trace H (Negative) Urine Glucose (UA) Negative (Negative) Urine Ketones Negative (Negative) Urine Blood Negative (Negative) Urine Nitrite Negative (Negative) Urine Bilirubin Negative (Negative) Urine Urobilinogen 2.0 (<2.0) mg/dL Ur Leukocyte Esterase Negative (Negative) 05/22/24 05/22/24 05/22/24 Range/Units 19:51 19:51 21:22 WBC (4.50-10.00) 10*3/uL RBC (4.40-5.60) 10*6/uL Hgb (13.0-17.0) g/dL Hct (39.6-50.0) % MCV (80.0-97.0) fL MCH (27.0-32.0) pg MCHC (32.0-37.0) g/dL Plt Count (140-440) 10*3/uL MPV (9.5-12.2) fL Immature Gran % (Auto) % Neutrophils % % Lymphocytes % % Monocytes % % Eosinophils % % Basophils % % Immature Gran # (0.00-0.04) 10*3/uL Neutrophils # (1.80-7.70) 10*3/uL Lymphocytes # (0.90-5.00) 10*3/uL Monocytes # (0.20-1.00) 10*3/uL Eosinophils # (0.04-0.35) 10*3/uL Basophils # (0.00-0.10) 10*3/uL PT (10.0-12.5) sec INR (<1.2) APTT (22.0-30.0) sec VBG pH (7.31-7.41) VBG pCO2 (37-51) mmHg VBG HCO3 (24-28) mmol/L Sodium 138 (137-145) mmol/L Potassium 4.6 (3.5-5.1) mmol/L Chloride 108 H (98-107) mmol/L Carbon Dioxide 24 (22-30) mmol/L Anion Gap 6 mmol/L BUN 20 (9-20) mg/dL Creatinine 0.94 (0.66-1.25) mg/dL Est GFR (CKD-EPI)AfAm 85 (>60 ml/min/1.73 sqM) Est GFR (CKD-EPI)NonAf 73 (>60 ml/min/1.73 sqM) Glucose 99 (74-99) mg/dL Plasma Lactic Acid Iban 0.8 (0.7-2.0) mmol/L Calcium 9.0 (8.4-10.2) mg/dL Total Bilirubin 0.6 (0.2-1.3) mg/dL AST 40 (17-59) U/L ALT 26 (4-49) U/L Alkaline Phosphatase 73 (38-126) U/L Creatine Kinase 47 L (55-170) U/L Troponin I <0.012 (0.000-0.034) ng/mL Total Protein 6.1 L (6.3-8.2) g/dL Albumin 3.1 L (3.5-5.0) g/dL Urine Color Urine Appearance (Clear) Urine pH (5.0-8.0) Ur Specific [place] (1.001-1.035) Urine Protein (Negative) Urine Glucose (UA) (Negative) Urine Ketones (Negative) Urine Blood (Negative) Urine Nitrite (Negative) Urine Bilirubin (Negative) Urine Urobilinogen (<2.0) mg/dL Ur Leukocyte Esterase (Negative) 05/22/24 Range/Units 21:22 WBC (4.50-10.00) 10*3/uL RBC (4.40-5.60) 10*6/uL Hgb (13.0-17.0) g/dL Hct (39.6-50.0) % MCV (80.0-97.0) fL MCH (27.0-32.0) pg MCHC (32.0-37.0) g/dL Plt Count (140-440) 10*3/uL MPV (9.5-12.2) fL Immature Gran % (Auto) % Neutrophils % % Lymphocytes % % Monocytes % % Eosinophils % % Basophils % % Immature Gran # (0.00-0.04) 10*3/uL Neutrophils # (1.80-7.70) 10*3/uL Lymphocytes # (0.90-5.00) 10*3/uL Monocytes # (0.20-1.00) 10*3/uL Eosinophils # (0.04-0.35) 10*3/uL Basophils # (0.00-0.10) 10*3/uL PT (10.0-12.5) sec INR (<1.2) APTT (22.0-30.0) sec VBG pH 7.41 (7.31-7.41) VBG pCO2 40 (37-51) mmHg VBG HCO3 25 (24-28) mmol/L Sodium (137-145) mmol/L Potassium (3.5-5.1) mmol/L Chloride (98-107) mmol/L Carbon Dioxide (22-30) mmol/L Anion Gap mmol/L BUN (9-20) mg/dL Creatinine (0.66-1.25) mg/dL Est GFR (CKD-EPI)AfAm (>60 ml/min/1.73 sqM) Est GFR (CKD-EPI)NonAf (>60 ml/min/1.73 sqM) Glucose (74-99) mg/dL Plasma Lactic Acid Iban (0.7-2.0) mmol/L Calcium (8.4-10.2) mg/dL Total Bilirubin (0.2-1.3) mg/dL AST (17-59) U/L ALT (4-49) U/L Alkaline Phosphatase (38-126) U/L Creatine Kinase (55-170) U/L Troponin I (0.000-0.034) ng/mL Total Protein (6.3-8.2) g/dL Albumin (3.5-5.0) g/dL Urine Color Urine Appearance (Clear) Urine pH (5.0-8.0) Ur Specific [place] (1.001-1.035) Urine Protein (Negative) Urine Glucose (UA) (Negative) Urine Ketones (Negative) Urine Blood (Negative) Urine Nitrite (Negative) Urine Bilirubin (Negative) Urine Urobilinogen (<2.0) mg/dL Ur Leukocyte Esterase (Negative) Disposition <Tomy Adams - Last Filed: 05/22/24 20:57> Is patient prescribed a controlled substance at d/c from ED?: No Time of Disposition: 22:30 <Tomy Valera - Last Filed: 05/23/24 21:19> Clinical Impression: Epigastric pain, Acute encephalopathy, AMS (altered mental status), Lewy body dementia Disposition: ADMITTED IP TO THIS HOSP Condition: Fair
[2024-05-22 18:36] LABS: Basophils # (A) 0.04 10*3/uL (0.00-0.10); Basophils % (A) 0.4 %; Eosinophils # (A) 1.03 10*3/uL (0.04-0.35); Eosinophils % (A) 10.2 %; HCT 28.5 % (39.6-50.0); HGB 9.7 g/dL (13.0-17.0); Lymphocytes # (A) 1.15 10*3/uL (0.90-5.00); Lymphocytes % (A) 11.4 %; MCV 94.1 fL (80.0-97.0); Mean Platelet Volume 10.9 fL (9.5-12.2); Monocytes # (A) 0.99 10*3/uL (0.20-1.00); Monocytes % (A) 9.9 %; Neutrophils # (A) 6.82 10*3/uL (1.80-7.70); Neutrophils % (A) 67.9 %; Platelet Count 171 10*3/uL (140-440); RBC 3.03 10*6/uL (4.40-5.60); RDW 15.2 % (11.5-14.5); WBC 10.05 10*3/uL (4.50-10.00)
[2024-05-22] MEDS: SODIUM CHLORIDE 0.9% 500 ML 500 ML IV STA (18:56)
[2024-05-22 19:38] LABS: INR 1.1 (<1.2); Partial Thromboplastin Time 24.3 sec (22.0-30.0)
[2024-05-22] MEDS: LORazepam 2 MG/ML INJ IV STA (19:54)
--- NOTE | 2024-05-22 20:21 | XR ---
EXAMINATION TYPE: XR chest 2V DATE OF EXAM: 05/22/2024 8:12 PM COMPARISON: Chest radiographs from 05/08/2024 CLINICAL INDICATION: Male, 84 years old with history of altered mental status; [facility] TECHNIQUE: XR chest 2V Frontal and lateral views of the chest. FINDINGS: Lungs/Pleura: There is no evidence of pleural effusion, focal consolidation, or pneumothorax. Pulmonary vascularity: Unremarkable. Heart/mediastinum: Cardiomediastinal silhouette is unremarkable. Musculoskeletal: No acute osseous pathology. IMPRESSION: No acute cardiopulmonary disease/process. [facility], , 05/22/2024 8:19 PM
[2024-05-22 20:38] LABS: Appearance,Urine Clear (Clear); Bilirubin,Urine Negative (Negative); Blood,Urine Negative (Negative); Color,Urine Yellow; Glucose,Urine (UA) Negative (Negative); Ketones,Urine Negative (Negative); Leukocyte Esterase,Urine Negative (Negative); Nitrite,Urine Negative (Negative); PH, Urine 6.5 (5.0-8.0); Protein,Urine Trace (Negative); Specific Gravity,Urine 1.017 (1.001-1.035)
--- NOTE | 2024-05-22 20:42 | CT ---
EXAMINATION TYPE: CT brain wo con DATE OF EXAM: 05/22/2024 8:20 PM COMPARISON: 04/28/2024. CLINICAL INDICATION: Male, 84 years old with history of Neuro deficit, acute, stroke suspected, ams TECHNIQUE: Brain: Axial CT images of the brain were obtained with coronal and sagittal reformats created and rev iewed. Contrast used: None. Oral contrast used: None. CT DLP: 2752.6 mGycm, Automated exposure control for dose reduction was used. FINDINGS: Brain: Extra-axial spaces: No abnormal extra-axial fluid collections. Ventricular system: Dilatation in proportion to cerebral atrophy. Cerebral parenchyma: Cerebral atrophy. No acute intraparenchymal hemorrhage or mass effect. The julien -white junction is well differentiated. Scattered hypoattenuating areas are seen within the white mat ter. Cerebellum: Unremarkable. Mass effect: No evidence of midline shift. Intracranial vasculature: unremarkable Soft tissues: Normal. Calvarium/osseous structures: No depressed skull fracture. Paranasal sinuses and mastoid air cells: Mild scattered paranasal sinus disease. Visualized orbits: Bilateral aphakia IMPRESSION: No acute intracranial process. [facility], , 05/22/2024 8:39 PM
[2024-05-22 21:03] LABS: ALT 26 U/L (4-49); AST 40 U/L (17-59); African American GFR (CKD) 85 (>60 ml/min/1.73 sqM); Albumin 3.1 g/dL (3.5-5.0); Alkaline Phosphatase 73 U/L (38-126); Anion Gap 6 mmol/L; Blood Urea Nitrogen 20 mg/dL (9-20); Carbon Dioxide 24 mmol/L (22-30); Chloride 108 mmol/L (98-107); Creatine Kinase 47 U/L (55-170); Glucose 99 mg/dL (74-99); Non-African American GFR(CKD) 73 (>60 ml/min/1.73 sqM); Potassium 4.6 mmol/L (3.5-5.1); Sodium 138 mmol/L (137-145); Total Bilirubin 0.6 mg/dL (0.2-1.3); Total Protein 6.1 g/dL (6.3-8.2)
--- NOTE | 2024-05-22 21:13 | CT ---
EXAMINATION TYPE: CT angio head neck DATE OF EXAM: 05/22/2024 8:42 PM COMPARISON: 05/22/2024.. CLINICAL INDICATION: Male, 84 years old with history of Neuro deficit, acute, stroke suspected; PH, ams TECHNIQUE: Axially acquired helical CT angiogram of the head and neck was obtained with contrast. Axi al images are supplemented with 3D reconstructions and MIP images which were post-processed at an in dependent workstation. NASCET criteria used. Contrast used:65 ml mL of Isovue 370 with IV Contrast, Oral contrast used: None. CT DLP: 456.3 mGycm, Automated exposure control for dose reduction was used. FINDINGS: CTA HEAD: No evidence of acute intracranial hemorrhage, mass effect, or midline shift. The ventricles, sulci, a nd cisterns are unremarkable. Vertebral arteries: The vertebral arteries are patent, Diminutive right intracranial artery. Vertebral artery dominance: Left Basilar artery: The basilar artery is intact. The basilar artery bifurcation is normal. Internal Carotid arteries: The cervical, petrous, cavernous and supraclinoid segments are normal. DEONDRE: Patent with no evidence of aneurysm. ACOM: Present without evidence of aneurysm. MCA: Patent with no evidence of aneurysm. [employer]: origin left: Normal right. Patent with no evidence of aneurysm. PCOM: Hypoplastic right. Dural sinuses: Patent. CTA NECK: Right Carotid System: The common carotid and external carotid arteries are patent. There is less than 25% stenosis at the c arotid bifurcation secondary to calcified/noncalcified plaque. The rest of the internal carotid arter y is patent. Left Carotid System: The common carotid and external carotid arteries are patent. There is less than 25% stenosis at the c arotid bifurcation secondary to calcified/noncalcified plaque. The rest of the internal carotid arter y is patent. Vertebral arteries are patent without evidence hemodynamically significant stenosis. Diminutive right anterior cranial portion poorly visualized due to motion. There is a three-vessel aortic arch. The origins of the great vessels are patent. No evidence of hemo dynamically significant stenosis. IMPRESSION: 1. Motion limited exam. Diminutive right intracranial vertebral artery possibly terminate as a poste rior inferior cerebellar artery. 2. No evidence of dissection of the cervical internal carotid arteries or vertebral arteries. 3. No any evidence of significant stenosis at the carotid bifurcations. 4. No evidence of intracranial high-grade stenosis or intracranial aneurysm. [facility], , 05/22/2024 9:10 PM
[2024-05-22 21:38] LABS: VBG PH 7.41 (7.31-7.41)
[2024-05-22] MEDS: PIPERACILLIN-TAZOBACTAM 3.375 GM in SODIUM CHLORIDE 0.9% 100 ML IVPB STA (21:50)
[2024-05-22] MEDS ORDERED: NALOXONE 0.4 MG/ML 1 ML VIAL IV PRN (22:42)
[2024-05-22] MEDS ORDERED: MORPHINE SULFATE 2 MG/ML SYRINGE IV PRN (22:42)
[2024-05-22] MEDS: MORPHINE SULFATE 2 MG/ML SYRINGE IVP STA (23:08)
--- NOTE | 2024-05-23 00:37 | CT ---
EXAM: CT Abdomen and Pelvis Without Intravenous Contrast CLINICAL HISTORY: ITS.REASON CT Reason: pain TECHNIQUE: Axial computed tomography images of the abdomen and pelvis without intravenous contrast. CTDI is 15.1 mGy and DLP is 958.7 mGy-cm. This CT exam was performed using one or more of the following dose reduction techniques: automated exposure control, adjustment of the mA and/or kV according to patient size, and/or use of iterative reconstruction technique. COMPARISON: CT abdomen and pelvis March 27, 2024. FINDINGS: Lung bases: Unremarkable. No mass. No consolidation. ABDOMEN: Liver: Unremarkable. Gallbladder and bile ducts: Unremarkable. No calcified stones. No ductal dilation. Pancreas: Unremarkable. No ductal dilation. Spleen: Unremarkable. No splenomegaly. Adrenals: Unremarkable. No mass. Kidneys and ureters: Atrophy of the kidneys. Excretion of contrast in the renal collecting systems. No hydronephrosis or definite renal stones. Bilateral renal cysts. Stomach and bowel: Diverticulosis, without acute diverticulitis. No small bowel obstruction. No free intraperitoneal air. PELVIS: Appendix: No findings to suggest acute appendicitis. Bladder: Unremarkable. No stones. Reproductive: Enlarged prostate gland, measures 5.5 cm. ABDOMEN and PELVIS: Intraperitoneal space: Unremarkable. No free air. No significant fluid collection. Bones/joints: Degenerative changes of the spine. RIGHT hip arthroplasty. No acute fracture. No dislocation. Soft tissues: Unremarkable. Vasculature: Atherosclerotic changes of the aorta. No abdominal aortic aneurysm. Lymph nodes: Unremarkable. No enlarged lymph nodes. IMPRESSION: 1. Atrophy of the kidneys. Excretion of contrast in the renal collecting systems. No hydronephrosis or definite renal stones. 2. Diverticulosis, without acute diverticulitis. No small bowel obstruction. No free intraperitoneal air.
[2024-05-23 03:39] LABS: Basophils # (A) 0.04 10*3/uL (0.00-0.10); Basophils % (A) 0.4 %; Eosinophils # (A) 1.04 10*3/uL (0.04-0.35); HCT 27.5 % (39.6-50.0); HGB 8.9 g/dL (13.0-17.0); Lymphocytes # (A) 1.15 10*3/uL (0.90-5.00); MCH 30.7 pg (27.0-32.0); MCHC 32.4 g/dL (32.0-37.0); MCV 94.8 fL (80.0-97.0); Mean Platelet Volume 9.7 fL (9.5-12.2); Monocytes # (A) 1.28 10*3/uL (0.20-1.00); Monocytes % (A) 12.3 %; Neutrophils # (A) 6.87 10*3/uL (1.80-7.70); Platelet Count 203 10*3/uL (140-440); RDW 14.6 % (11.5-14.5); WBC 10.41 10*3/uL (4.50-10.00)
[2024-05-23 03:55] LABS: ALT 28 U/L (4-49); AST 33 U/L (17-59); African American GFR (CKD) 77 (>60 ml/min/1.73 sqM); Albumin 2.8 g/dL (3.5-5.0); Alkaline Phosphatase 74 U/L (38-126); Anion Gap 5 mmol/L; Blood Urea Nitrogen 19 mg/dL (9-20); Calcium 8.8 mg/dL (8.4-10.2); Carbon Dioxide 26 mmol/L (22-30); Chloride 107 mmol/L (98-107); Glucose 93 mg/dL (74-99); Magnesium 1.5 mg/dL (1.6-2.3); Non-African American GFR(CKD) 66 (>60 ml/min/1.73 sqM); Phosphorus 3.6 mg/dL (2.5-4.5); Potassium 4.5 mmol/L (3.5-5.1); Sodium 138 mmol/L (137-145); Total Bilirubin 0.6 mg/dL (0.2-1.3); Total Protein 5.6 g/dL (6.3-8.2)
[2024-05-23] MEDS: LEVOTHYROXINE 75 MCG TAB PO SCH (04:31)
[2024-05-23] MEDS: MIDODRINE 5 MG TAB PO SCH (04:31)
[2024-05-23] MEDS: THIAMINE 100 MG TAB PO SCH (04:32)
[2024-05-23] MEDS: PIPERACILLIN-TAZOBACTAM 3.375 GM in SODIUM CHLORIDE 0.9% 100 ML IVPB SCH (05:28)
[2024-05-23 06:40] LABS: Glucose,Whole Blood 97 mg/dL (70-110)
[2024-05-23] MEDS: CARBIDOPA-LEVODOPA 25-100 MG 1 EACH TAB PO SCH (09:18)
[2024-05-23] MEDS: DOXAZOSIN 2 MG TAB PO SCH (09:18)
[2024-05-23] MEDS: CALCIUM CARB-VIT D 500 MG-5 MCG TAB PO SCH (09:18)
[2024-05-23] MEDS: ASPIRIN 81 MG PO SCH (09:18)
[2024-05-23] MEDS: DOCUSATE 100 MG CAP PO SCH (09:18)
[2024-05-23] MEDS: METOPROLOL SUCCINATE (ER) 25 MG TAB.ER.24H PO SCH (09:19)
[2024-05-23] MEDS: MULTIVITAMINS, THERA 1 EACH TAB PO SCH (09:19)
[2024-05-23] MEDS: FOLIC ACID 1 MG TAB PO SCH (09:19)
--- NOTE | 2024-05-23 10:44 | P.HPIM ---
History of Present Illness 84-year-old male was brought in because patient started speaking. Patient has advanced Lewy body dementia at baseline is alert oriented x 1 he had recent multiple hospitalizations. He is unable to handle his secretions. Unable to ob tain any history patient has extreme poor functionality. I had a discussion with the family member, his regarding his overall goals of care. There is a concern patient may have aspirated patient has bilateral rhonchi. REVIEW OF SYSTEMS: All other systems are negative except those mentioned in the HPI PHYSICAL EXAMINATION: GENERAL: The patient is barely responsive does wake up drooling significant muscle weakness HEENT: Pupils are round and equally reacting to light. EOMI. No scleral icterus. No conjunctival pallor. Normocephalic, atraumatic. No pharyngeal erythema. No thyromegaly. CARDIOVASCULAR: S1 and S2 present. No murmurs, rubs, or gallops. PULMONARY: Chest is clear to auscultation, no wheezing or crackles. ABDOMEN: Soft, nontender, nondistended, normoactive bowel sounds. No palpable organomegaly. MUSCULOSKELETAL: No joint swelling or deformity. EXTREMITIES: No cyanosis, clubbing, or pedal edema. NEUROLOGICAL: Significant generalized weakness oriented x 0 SKIN: No rashes. Assessment and plan -Altered mental status: Secondary to advanced dementia. - Patient may have aspiration pneumonia for which patient on Zosyn. Speech therapy supposed to evaluate the patient but patient is more appropriate for hospice then any further intervention at this time. For text - Lewy body dementia - Leukocytosis secondary to aspiration as mentioned above - Hypothyroidism - Benign prostatic atrophy - Parkinson's/Lewy body dementia Had a discussion with family members regarding his overall goals of care only appropriate management for patient considering his extreme poor functionality very low Karnofsky score advanced dementia is hospice. Past Medical History Past Medical History: Dementia, Diabetes Mellitus, Eye Disorder, Hyperlipidemia, Hypertension, Prostate Disorder, Thyroid Disorder Additional Past Medical History / Comment(s): Bilateral cataracts, enlarged prostate. History of Any Multi-Drug Resistant Organisms: None Reported Past Surgical History: Heart Catheterization With Stent, Joint Replacement Additional Past Surgical History / Comment(s): 3 colonoscopies, cardiac stents X2, R hip replacement 12/2018 Past Anesthesia/Blood Transfusion Reactions: No Reported Reaction, Motion Sickness Date of Last Stent Placement:: 11/08/2017 Past Psychological History: No Psychological Hx Reported Smoking Status: Never smoker Past Alcohol Use History: None Reported Past Drug Use History: None Reported - Past Family History Father Family Medical History: Cancer Medications and Allergies Home Medications Medication Instructions Recorded Confirmed Type Levothyroxine Sodium [Synthroid] 75 mcg PO DAILY@0800 08/05/17 05/08/24 History Tamsulosin [Flomax] 0.4 mg PO HS@2100 08/05/17 05/08/24 History sitaGLIPtin PHOS/metFORMIN HCL 1 tab PO BID@0800,1700 04/23/22 05/08/24 History [Janumet 50-500 mg Tablet] Carbidopa-Levodopa 25-100 mg 1 tab PO TID@0800,1200,1700 03/15/24 05/08/24 History [Sinemet 25-100 mg] Metoprolol Succinate [Metoprolol 12.5 mg PO BID@0800,1700 03/15/24 05/08/24 History Succinate ER] [place]-3/Dha/Epa/Fish Oil [Fish Oil 1 cap PO DAILY@0800 03/15/24 05/08/24 History 1,000 mg Softgel] Docusate [Colace] 100 mg PO BID@0800,1700 03/24/24 05/08/24 History Folic Acid 1 mg PO DAILY@0800 03/24/24 05/08/24 History Multivitamins, Thera [Multivitamin 1 tab PO DAILY@0800 03/24/24 05/08/24 History (formulary)] Nystatin 100,000Unit/gm Cream 1 applic TOPICAL TID@0800,1200,17003/24/24 05/08/24 History [Mycostatin Cream] Thiamine [Vitamin B-1] 100 mg PO BID@0800,1700 03/24/24 05/08/24 History Atorvastatin [Lipitor] 80 mg PO HS@209905/08/24 05/08/24 History Midodrine HCl [ProAmantine] 5 mg PO TID@0800,1200,17005/08/24 05/08/24 History Aspirin 81 mg PO DAILY #30 tab 05/11/24 Rx Calcium Carb-Vit D 500Mg-5Mcg 1 each PO BID-W/MEALS #60 tab 05/11/24 Rx [Oscal 500+D 5 Mcg (200 Iu)] Doxazosin [Cardura] 2 mg PO DAILY #30 tab 05/11/24 Rx Allergies Allergy/AdvReac Type Severity Reaction Status Date / Time No Known Allergies Allergy Verified 05/08/24 12:25 Physical Exam Vitals: Vital Signs Temp Pulse Pulse Resp BP BP Pulse Ox 05/23/24 07:55 97.2 F L 67 20 125/47 99 05/23/24 01:05 72 19 139/75 98 05/23/24 00:29 75 13 135/77 95 05/22/24 23:00 80 20 150/79 98 05/22/24 21:52 98.9 F 77 20 113/80 96 05/22/24 21:50 78 20 113/80 96 05/22/24 20:34 81 19 129/77 96 05/22/24 18:34 78 19 151/77 97 05/22/24 17:42 97.7 F 77 20 128/78 97 Intake and Output 05/22/24 05/23/24 05/23/24 22:59 06:59 14:59 Intake Total 0 Balance 0 Intake: Oral 0 Other: Voiding Method Diaper # Voids 3 Weight 83.6 kg 83.6 kg Results CBC & Chem 7: 05/23/24 02:43 05/23/24 02:43 Labs: Abnormal Lab Results - Last 24 Hours (Table) 05/22/24 05/22/24 05/22/24 Range/Units 18:27 19:37 19:51 WBC 10.05 H (4.50-10.00) 10*3/uL RBC 3.03 L (4.40-5.60) 10*6/uL Hgb 9.7 L (13.0-17.0) g/dL Hct 28.5 L (39.6-50.0) % Monocytes # (0.20-1.00) 10*3/uL Eosinophils # 1.03 H (0.04-0.35) 10*3/uL Chloride 108 H (98-107) mmol/L Magnesium (1.6-2.3) mg/dL Creatine Kinase 47 L (55-170) U/L Total Protein 6.1 L (6.3-8.2) g/dL Albumin 3.1 L (3.5-5.0) g/dL Urine Protein Trace H (Negative) 05/23/24 05/23/24 Range/Units 02:43 02:43 WBC 10.41 H (4.50-10.00) 10*3/uL RBC 2.90 L (4.40-5.60) 10*6/uL Hgb 8.9 L (13.0-17.0) g/dL Hct 27.5 L (39.6-50.0) % Monocytes # 1.28 H (0.20-1.00) 10*3/uL Eosinophils # 1.04 H (0.04-0.35) 10*3/uL Chloride (98-107) mmol/L Magnesium 1.5 L (1.6-2.3) mg/dL Creatine Kinase (55-170) U/L Total Protein 5.6 L (6.3-8.2) g/dL Albumin 2.8 L (3.5-5.0) g/dL Urine Protein (Negative) Thrombosis Risk Factor Assmnt - Choose All That Apply Any of the Below Risk Factors Present?: Yes Each Factor Represents 1 point: Medical pt on bed rest, Obesity (BMI >25) Other Risk Factors: Yes Each Risk Factor Represents 2 Points: Patient confined to bed Each Risk Factor Represents 3 Points: Age 75 years or older Other congenital or acquired thrombophilia - If yes, enter type in comment: No Thrombosis Risk Factor Assessment Total Risk Factor Score: 7 Thrombosis Risk Factor Assessment Level: High Risk
[2024-05-23 11:40] LABS: Glucose,Whole Blood 99 mg/dL (70-110)
[2024-05-23 16:41] LABS: Glucose,Whole Blood 98 mg/dL (70-110)
[2024-05-23] MEDS: LORazepam 1 MG/0.5 ML VIAL IV PRN (17:31)
[2024-05-23] MEDS: SCOPOLAMINE 1 MG/72 HR PATCH TRANSDERM STA (17:32)
[2024-05-23] MEDS: ATORVASTATIN 80 MG TAB PO SCH (20:21)
[2024-05-23] MEDS: TAMSULOSIN 0.4 MG CAP.ER.24H PO SCH (20:22)
[2024-05-23 20:50] LABS: Glucose,Whole Blood 88 mg/dL (70-110)
[2024-05-24] MEDS: ATROPINE OPHTH SOLN 1% 5ML BTL SUBLINGUAL PRN (04:23)
[2024-05-24 06:18] LABS: Glucose,Whole Blood 74 mg/dL (70-110)
[2024-05-24 08:14] VITALS: BP 142/61; PULSE 62; RESP 16; TEMP 97.5
--- NOTE | 2024-05-27 00:05 | P.DS ---
Providers Date of admission: 05/22/24 22:43 Attending physician: Mio Ornelas [facility] Hospital Course: Final Diagnosis -Altered mental status: Secondary to advanced dementia. - Patient may have aspiration pneumonia for which patient on Zosyn. Speech therapy supposed to evaluate the patient but patient is more appropriate for hospice then any further intervention at this time. For text - Lewy body dementia - Leukocytosis secondary to aspiration as mentioned above - Hypothyroidism - Benign prostatic atrophy - Parkinson's/Lewy body dementia Discharge Disposition Patient discharged home with hospice. Hospital Course 84-year-old male was brought in because patient had an episode where he had stopped talking. Patient has advanced Lewy body dementia at baseline is alert oriented x 1 he had recent multiple hospitalizations. He is unable to handle his secretions. Unable to obtain any history patient has extreme poor functionality. I had a discussion with the family member, his regarding his overall goals of care. There is a concern patient may have aspirated patient has bilateral rhonchi. Decision was made for patient to discharge home with hospice services. Please see medication reconciliation for a list of current medications. Thank you for allowing us to participate in the care of this patient. The impression and plan of care has been dictated by Brenna Montana Nurse Practitioner as directed. Dr. Lorne MD I have performed a history and physical examination and medical decision making of this patient, discussed the same with the dictator, and agree with the dictators assessment and plan as written, documented as a scribe. Based on total visit time, I have performed more than 50% of this visit. Patient Condition at Discharge: Fair Plan - Discharge Summary Discharge Rx Participant: Yes New Discharge Prescriptions: No Action Tamsulosin [Flomax] 0.4 mg PO HS@2100 Levothyroxine Sodium [Synthroid] 75 mcg PO DAILY@0800 sitaGLIPtin PHOS/metFORMIN HCL [Janumet 50-500 mg Tablet] 1 tab PO BID@0800,1700 Metoprolol Succinate [Metoprolol Succinate ER] 12.5 mg PO BID@0800,1700 [place]-3/Dha/Epa/Fish Oil [Fish Oil 1,000 mg Softgel] 1 cap PO DAILY@0800 Docusate [Colace] 100 mg PO BID@0800,1700 Midodrine HCl [ProAmantine] 2.5 mg PO TID@0800,1200,1700 Doxazosin [Cardura] 2 mg PO DAILY #30 tab Calcium Carb-Vit D 500Mg-5Mcg [Oscal 500+D 5 Mcg (200 Iu)] 1 each PO BID- W/MEALS #60 tab Carbidopa-Levodopa 25-100 mg [Sinemet 25-100 mg] 1 tab PO TID@0800,1200,1700 Nystatin 100,000Unit/gm Cream [Mycostatin Cream] 1 applic TOPICAL TID@0800,1200,1700 Thiamine [Vitamin B-1] 100 mg PO BID@0800,1700 Multivitamins, Thera [Multivitamin (formulary)] 1 tab PO DAILY@0800 Folic Acid 1 mg PO DAILY@0800 Atorvastatin [Lipitor] 80 mg PO HS@2100 Aspirin 81 mg PO DAILY #30 tab Discharge Medication List Levothyroxine Sodium [Synthroid] 75 mcg PO DAILY@0800 08/05/17 [History] Tamsulosin [Flomax] 0.4 mg PO HS@209908/05/17 [History] sitaGLIPtin PHOS/metFORMIN HCL [Janumet 50-500 mg Tablet] 1 tab PO BID@0800,1700 04/23/22 [History] Carbidopa-Levodopa 25-100 mg [Sinemet 25-100 mg] 1 tab PO TID@0800,1200,1700 03/15/24 [History] Metoprolol Succinate [Metoprolol Succinate ER] 12.5 mg PO BID@0800,1700 03/15/24 [History] [place]-3/Dha/Epa/Fish Oil [Fish Oil 1,000 mg Softgel] 1 cap PO DAILY@0800 03/15/24 [History] Docusate [Colace] 100 mg PO BID@0800,1700 03/24/24 [History] Folic Acid 1 mg PO DAILY@0800 03/24/24 [History] Multivitamins, Thera [Multivitamin (formulary)] 1 tab PO DAILY@0800 03/24/24 [History] Nystatin 100,000Unit/gm Cream [Mycostatin Cream] 1 applic TOPICAL TID@0800,1200,1700 03/24/24 [History] Thiamine [Vitamin B-1] 100 mg PO BID@0800,1700 03/24/24 [History] Atorvastatin [Lipitor] 80 mg PO HS@05/08/25 [History] Midodrine HCl [ProAmantine] 2.5 mg PO TID@0800,1200,1700 05/08/24 [History] Aspirin 81 mg PO DAILY #30 tab 05/11/24 [Rx] Calcium Carb-Vit D 500Mg-5Mcg [Oscal 500+D 5 Mcg (200 Iu)] 1 each PO BID-W/MEALS #60 tab 05/11/24 [Rx] Doxazosin [Cardura] 2 mg PO DAILY #30 tab 05/11/24 [Rx] Follow up Appointment(s)/Referral(s): Carlos Enrique Brown MD [Primary Care Provider] - 1-2 days [facility] [NON-STAFF] - As Needed Discharge Disposition: HOME WITH HOSPICE
== END 2024-05-24 13:27 | disposition hospice, home (50) | DRG 179 ==
LOC: EC 17:36 → 4SSUR 22:43
PROVIDERS: ADMIT Hospitalist; ATTEND Hospitalist
DX: J69.0 Pneumonitis due to inhalation of food and vomit (principal); Z51.5 Encounter for palliative care; Z66 Do not resuscitate; E11.9 Type 2 diabetes mellitus without complications; E03.9 Hypothyroidism, unspecified; E78.5 Hyperlipidemia, unspecified; D72.829 Elevated white blood cell count, unspecified; F02.80 Dementia in other diseases classified elsewhere, unspecified severity, without behavioral disturbance, psychotic disturbance, mood disturbance, and anxiety; G20.A1 Parkinson's disease without dyskinesia, without mention of fluctuations; I10 Essential (primary) hypertension; G31.83 Neurocognitive disorder with Lewy bodies; N40.0 Benign prostatic hyperplasia without lower urinary tract symptoms; N42.89 Other specified disorders of prostate; R10.13 Epigastric pain; Z79.82 Long term (current) use of aspirin; Z79.890 Hormone replacement therapy; Z79.84 Long term (current) use of oral hypoglycemic drugs; Z79.899 Other long term (current) drug therapy; Z96.641 Presence of right artificial hip joint; Z95.5 Presence of coronary angioplasty implant and graft
CPT/HCPCS: 36415; 70450; 70496; 70498; 71046; 74176; 80053; 81003; 82550; 82803; 83605; 83735; 84100; 84484; 85025; 85610; 85730; 87040; 93005; 96361; 96365; 96366; 96375; 99285